=== PATIENT | female | born 1955 | race Caucasian/White ===

== ENCOUNTER → 2024-02-19 15:57 | Outpatient (REF) | payer MEDICARE, OTHER, SELFPAY | LOC: HWRAD 15:57 | PROVIDERS: ATTENDING PHYSICIAN Internal Medicine Critical Care Medicine; FAMILY PHYSICIAN Family Medicine | DX: Z87.891 Personal history of nicotine dependence (principal) | CPT/HCPCS: 71271 ==

== ENCOUNTER 2024-06-27 12:00 | Inpatient (IN) | payer MEDICARE, OTHER, SELFPAY ==
[2024-06-27] VITALS (13 sets, daily range): BP systolic 91–125; BP diastolic 50–93; BMI 42.2; BMI 41.3
--- NOTE | 2024-06-27 07:29 | ED.GENMED ---
History of Present Illness
General
Chief Complaint: Breathing Problem
Time Seen by Provider: 06/27/24 07:18
History of Present Illness
History of Present Illness:
69-year-old female with history of COPD on chronic oxygen, CHF, insulin-dependent diabetes, hypertension, hyperlipidemia, and former smoker presents to the emergency department for evaluation of fever and cough beginning Thursday. She states her last
Dupixent treatment was Thursday, states 'I always get sick whenever I get the shot'. Reports increased productive mucus as well as shortness of breath. Arrives on 6 L nasal cannula with continued increased work of breathing. Febrile on arrival as
well. Denies any known ill contacts. No recent travel.
Past History
Past History
ED Past Medical History: COPD, HTN, Hypercholesterolemia, IDDM and Other (Rheumatoid arthritis, osteoporosis, cataracts)
ED Past Surgical History: Cholecystectomy, Gynecological (Partial hysterectomy) and Urological (Bladder sling)
Social History
Tobacco: Former smoker
Alcohol: None
Drug: None
Personal:
Living: alone (Her son keeps an eye on her)
Review of Systems
Review of Systems
Allergies reviewed?: Yes
All Other Systems: ROS reviewed and negative except as documented in HPI and ROS
Phy Exam
Physical Exam
Physical Exam:
GEN: Ill-appearing, facial flushing noted, increased work of breathing
Eyes: PERRLA, EOMs intact, no scleral icterus
HENT: NCAT, oral mucosa moist, unable to assess for JVD secondary to body habitus
Lungs: Tachypneic with pursed lip breathing and widespread wheezes
Cardiac: tachycardic, regular, no murmur
Neuro: AO x 3
MSK: No gross deformity or ecchymosis. No edema. No digital clubbing
Skin: No rashes, petechiae. Normal color, no pallor or jaundice.
Psych: Calm, cooperative, proper hygiene
Scores
Heart Failure Risk
Heart Failure Risk Score: Not Applicable
Course
Orders/Labs/Results
Orders:
Orders
06/27/24 07:22
EKG [Electrocardiogram (*1)] Urgent
Reason for Study: Shortness of Breath
06/27/24 07:23
EKG- Treatment ONCE
06/27/24 07:24
Acetaminophen [Tylenol] 1,000 mg .ROUTE .STK-MED ONE
06/27/24 07:31
COVID-19 Antigen Urgent
Source: Nasal Swab
Complete Blood Count/With Diff Urgent
Glycohemoglobin (HgbA1c) Urgent
Influenza A+B Rapid Molecular Urgent
JAIME Source: Nasal Swab
Specimen Description:
Acetaminophen [Tylenol] 1,000 mg PO NOW STA
06/27/24 07:34
Ipratropium/Albuterol Sulfate [Duoneb] 3 ml INH R NOW ONE
CR Chest - 2 Views Urgent
Comment:
Reason For Exam: SOB
06/27/24 07:38
Lactic Acid Q4H
Comment: CANCEL 2nd LACTIC ACID IF 1st LACTIC ACID IS LESS THAN 2
Blood Culture Urgent
JAIME Source: Blood/Venous
Specimen Description:
06/27/24 07:45
Comprehensive Metabolic Panel Urgent
NT-proBNP Urgent
Blood Culture Routine
JAIME Source: Blood/Venous
Specimen Description:
Ketorolac [Toradol] 15 mg IV NOW STA
06/27/24 07:49
Morphine Sulfate 4 mg .ROUTE .STK-MED ONE
06/27/24 07:50
Morphine Sulfate 4 mg IV NOW STA
06/27/24 08:35
CefTRIAXone [Rocephin] 1,000 mg IV NOW STA
Doxycycline [Vibramycin] 100 mg PO NOW STA
MethylPREDNISolone PF [Solu-Medrol Pf] 60 mg IV NOW STA
06/27/24 11:34
Admit/Transfer Patient As Directed
Co-Sign Provider:
Level of Care: Inpatient admission
Assign to:: Telemetry
Physician / Group: Mirsky/Hospitalist
Diagnosis: AECOPD
Reason for Telemetry: Arrhythmia
Date to Stop Telemetry: 06/30/24
Time to Stop Telemetry: 11:00
Reason for Hospitalization: Respiratory Distress
AECOPD
Expected length of stay greater than two midnights?: Yes
ELOS- Estimated Length of Stay in days: 4
I certify the patient meets the requirements for IP care: Yes
PRN Pain Medication Management As Directed
May give lesser potent ordered pain med per pt: Yes
preference::
Protocol:: Medication orders for pain may be administered in a
manner that supports deferring to patient preference
when the pt is:
-Requesting an ordered lesser potent pain medication.
Least to most potent pain medications are defined as:
acetaminophen < NSAID < tramadol < opioids (morphine,
oxycodone, hydromorphone).
- Requesting a lesser dose of the same medication IF
ORDERED.
- Requesting a less intrusive route of administration
if both routes are prescribed by the provider (PO <
IV).
06/27/24 11:40
Code Status As Directed
Resuscitation Status: Full Code
06/27/24 12:05
Lactic Acid Q4H
Comment: CANCEL 2nd LACTIC ACID IF 1st LACTIC ACID IS LESS THAN 2
06/30/24 11:00
DC Protocol for Telemetry ONCE
Abnormal Lab Results
06/27/24 06/27/24 06/27/24
07:31 07:38 07:45
WBC 4.2 L 10^3/uL
(4.8-10.8)
Plt Count 41 L 10^3/uL
(130-400)
MPV 11.5 H fL
(7.4-10.4)
Abs Immat Gran (auto) 0.3 H 10^3/uL
(0-0.05)
Absolute Lymphs (auto) 0.4 L 10^3/uL
(1.2-3.4)
Immature Gran % 7.5 H %
(0-0.5)
Neutrophils % 81.0 H %
(42.2-75.2)
Lymphocytes % 8.9 L %
(20.5-51.1)
Monocytes % 1.4 L %
(1.7-9.3)
Sodium 132 L mmol/L
(135-145)
Chloride 93 L mmol/L
(98-107)
Glucose 210 H mg/dl
(70-99)
Lactic Acid 2.4 H mmol/L
(0.7-2.0)
Total Bilirubin 1.6 H mg/dl
(0.2-1.3)
AST 116 H U/L
(14-36)
ALT 38 H U/L
(0-35)
Total Protein 6.1 L g/dl
(6.3-8.2)
06/27/24 07:31
06/27/24 07:45
Vital Signs
Initial and Last Documented VS:
Initial Vital Signs
Temp Pulse Resp BP Pulse Ox
103.7 F H 122 22 117/91 96
06/27/24 07:26 06/27/24 07:26 06/27/24 07:26 06/27/24 07:26 06/27/24 07:26
Last Documented Vital Signs
Temp Pulse Resp BP Pulse Ox
99.2 F 81 19 100/72 94
06/27/24 10:04 06/27/24 12:00 06/27/24 11:00 06/27/24 12:02 06/27/24 12:02
MDM/Problems Addressed
MDM/Problems Addressed:
61-year-old female presents with acute respiratory distress and fever. She does have audible wheezing and rhonchi on lung exam however no discernible infiltrate on chest x-ray. Viral swabs are negative. She does have leukopenia which may suggest
a component of a viral syndrome. Nevertheless given her brittle COPD history will cover with broad-spectrum antibiotics and steroids and admit for treatment
Comment
Comment:
EKG independently interpreted by me shows a sinus tachycardia at a rate of [address] depressions and T wave inversions suspicious for subendocardial ischemia likely rate dependent, ST changes are new compared to prior EKG
*Critical Care Note
Total Time (30-74mins, 75-104mins- exclusive of procedures): Not Applicable
ED Attending Note
-
Portions of this chart may have been created with voice recognition software.� Occasional wrong word or��sound alike� substitutions may have occurred due to the inherent limitations of voice recognition software.
Discharge Plan
Departure
Patient Disposition: Admit
Date of Disposition: 06/27/24
Time of Disposition: 08:44
Admit to: Med/Surg
Presentation/result/management discussed w/ accepting MD/DO: Hospitalist
Discharge Problem:
Acute exacerbation of chronic obstructive pulmonary disease (COPD)
Interventions
Interventions:
*Risk Screen - Suicide Last Done: 06/27/24 07:26
*General Assessment Last Done: 06/27/24 07:26
*Neglect/Abuse Screening Last Done: 06/27/24 07:26
ED- Fall Risk Assessment Last Done: 06/27/24 07:55
*ED COVID-19 Vaccine History Last Done: 06/27/24 07:26
*Nursing Disposition Last Done: 06/27/24 12:43
ED- Cardiac Assessment Last Done: 06/27/24 07:55
ED- Pulmonary Assessment Last Done: 06/27/24 07:55
[2024-06-27] MEDS: TYLENOL 1000 MG PO (07:31)
[2024-06-27] MEDS: DUONEB 3 ML INH ×3 (07:40→19:41)
[2024-06-27] MEDS: MORPHINE SULFATE 4 MG IV (07:50)
[2024-06-27 07:57] LABS: COVID-19 Antigen Negative (Negative)
[2024-06-27 07:59] LABS: Lactic Acid 2.4 mmol/L (0.7-2.0)
[2024-06-27 08:10] LABS: Hematocrit 41.1 % (37.0-47.0); Hemoglobin 14.4 g/dL (12.0-16.0); Mean Corpuscular Hgb 29.2 pg (27.0-31.0); Mean Corpuscular Volume 83.4 fL (81.0-99.0); Red Blood Cell Count 4.93 10^6/uL (4.20-5.40); Red Cell Dist. Width 12.7 % (11.5-14.5); White Blood Cell Count 4.2 10^3/uL (4.8-10.8)
[2024-06-27 08:30] LABS: ALT (SGPT) 38 U/L (0-35); AST (SGOT) 116 U/L (14-36); Albumin 3.9 g/dl (3.5-5.0); Alkaline Phosphatase 81 U/L (38-126); Blood Urea Nitrogen 16 mg/dl (7-17); Carbon Dioxide 28 mmol/L (22-30); Chloride 93 mmol/L (98-107); Estimated Creatinine Clearance 76 ml/min; Glucose 210 mg/dl (70-99); Potassium 3.8 mmol/L (3.5-5.1); Sodium 132 mmol/L (135-145); Total Bilirubin 1.6 mg/dl (0.2-1.3); Total Protein 6.1 g/dl (6.3-8.2); eGFR > 60.00
[2024-06-27 08:36] LABS: NT-proBNP 306 pg/ml
[2024-06-27] MEDS: VIBRAMYCIN 100 MG PO ×2 (08:44→20:02)
[2024-06-27] MEDS: ROCEPHIN 1000 MG IV (08:44)
[2024-06-27] MEDS: SOLU-MEDROL PF 60 MG IV (08:44)
[2024-06-27 09:05] LABS: Mean Platelet Volume 11.5 fL (7.4-10.4); Platelet Count 41 10^3/uL (130-400)
[2024-06-27 09:06] LABS: % Eosinophils 0.2 % (0-6); % Immature Granulocytes 7.5 % (0-0.5); % Lymphocytes 8.9 % (20.5-51.1); % Monocytes 1.4 % (1.7-9.3); Absolute Immature Granulocytes 0.3 10^3/uL (0-0.05); Absolute Lymphocytes 0.4 10^3/uL (1.2-3.4); Absolute Monocytes 0.1 10^3/uL (0.1-0.6); Absolute Neutrophils 3.4 10^3/uL (1.4-6.5); Nucleated Red Blood Cells % 0 %
--- NOTE | 2024-06-27 12:31 | PN.DE.MGMTRT ---
Insulin Management
- -
06/27/2024: Diabetes management Consult
69 year old female w/PMH: COPD on chronic oxygen, CHF,HTN, HLD, former smoker and IDDM. Pt presented to the ED with fever and cough beginning Thursday. She states her last Dupixent treatment was Thursday, states 'I always get sick whenever I get the
shot'. Reports increased productive mucus as well as shortness of breath. Arrives on 6 L nasal cannula with continued increased work of breathing. Febrile on arrival as well.
Pt is on Chronic steroids- Prednisone 10mg daily, received a dose of IV steroids- Methylpred 60mg on arrival to ED. Cr 0.8, eGFR >60
Was taking Metformin 1000mg BID and NovoLog SS 2-11 units AC. Glucose on arrival was 210(V), pt will be further managed on IV Steroids- Dexa 4mg Q8hrs. Dr. Pinto has ordered Lantus 10 units @ HS and moderate corrective insulin with meals and 1800
marshall diet.
Will make no changes, anticipate steroids will contribute to further Hyperglycemia.
Will cont to follow and adjust insulin dose if necessary. Will Update A1C.
Diabetes History
- -
Type of Diabetes: 2
Pre-Admission Diabetes Regimen
06/27/24 06/27/24
07:30 07:45
Creatinine Cancelled 0.8
Insulin Pump Settings
IP Diabetes Regimen
06/27/24 06/27/24
07:30 07:45
Glucose Cancelled 210 H
Patient Education
[2024-06-27 12:40] LABS: Lactic Acid 1.7 mmol/L (0.7-2.0)
--- NOTE | 2024-06-27 13:09 | W.PN.HOSP.TC ---
Today's Communication/Plan
-
IV Decadron
Oxygen supplement
empiric abx
Assessment / Plan
Assessment / Plan
AECOPD
Pt with >7 yr hx of COPD, had been doing reasonably well until past 3-4 days when progressively began to worsen, resulting in marked sob earlier today.
+Productive of thick yellow phlegm
Acute infectious asthmatic bronchitis
Nodule noted left lower lung 5/10 measuring 4 mm
IDDM
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
Rheumatoid Arthritis
essential HTN
Morbid Obesity
affects all aspects
osteoporosis
cataracts
P:IV Decadron
empiric abx
sputum for C&S
Pulm consult
Full Code
see dictated note
Anticipated Discharge: > 48 hours
Subjective/Interval History
-
Date of Service: June 27, 2024
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
Objective Data
-
Labs:
Laboratory Results
06/27/24 06/27/24 06/27/24
07:30 07:31 07:45
WBC 4.2 L
Hgb 14.4
Hct 41.1
Plt Count 41 L
Sodium Cancelled 132 L
Potassium Cancelled 3.8
Chloride Cancelled 93 L
Carbon Dioxide Cancelled 28
BUN Cancelled 16
Creatinine Cancelled 0.8
Glucose Cancelled 210 H
Calcium Cancelled 9.0
Total Bilirubin Cancelled 1.6 H
AST Cancelled 116 H
ALT Cancelled 38 H
Alkaline Phosphatase Cancelled 81
Vital Signs:
Vital Signs
Temp Pulse Resp BP Pulse Ox
97.8 F 108 24 101/73 97
06/27/24 13:01 06/27/24 13:01 06/27/24 13:01 06/27/24 13:01 06/27/24 13:01
Review of Systems
-
History Source: Patient and Coordinated Provider
Constitutional: Reports Fever (103.7)
EENT: Reports No Symptoms Reported
Respiratory: Reports Cough, Trouble Breathing and Wheezing
Cardiac: Reports No Symptoms; Denies Chest Pain
Abdomen/GI: Reports No Symptoms
Genitourinary: Reports No Symptoms
Neuro: Reports No Symptoms
Physical Exam
-
General: Well Developed, Well Nourished, Respiratory Distress, Appears in Distress and Appears Chronically Ill
HEENT: Normocephalic, Atraumatic and Moist Mucous Membranes
Respiratory: Wheezes (high freq holoexpiratory wheeze)
Cardiac: Regular Rhythm and S1/S2
GI: Nontender and Nondistended
Musculoskeletal: No Clubbing, No Cyanosis and No Edema
Neuro: Awake, Alert and Oriented
[2024-06-27 13:14] LABS: Glucose - Point of Care 245 mg/dl (70-99)
[2024-06-27 13:22] LABS: Glycohemoglobin (HgbA1c) 5.9 % (4.0-5.6)
[2024-06-27] MEDS: NOVOLOG FLEXPEN-MODERATE RESISTANCE 3 UNITS SC (13:48)
[2024-06-27] MEDS: DURAGESIC 12 MCG/HR PATCH 1 PATCH TRANSDERM (14:28)
[2024-06-27] MEDS: ZITHROMAX 500 MG PO (14:28)
--- NOTE | 2024-06-27 14:43 | CON.PUL ---
Consultation
Consultation Request
Date/Time Consultation Requested: 06/27/2024
Date/Time Consultation Performed: 06/27/2024
Requesting Provider: Dr. Pinto
Performing Provider: Dr. Pawan Funk
Reason for Consultation: Acute exacerbation of COPD
Medical History
-
History of Present Illness:
69-year-old woman with history of stage IV COPD, on chronic oxygen therapy, type 2 diabetes, hypertension, heart failure, former smoker who came to the emergency room for evaluation on 06/27/2024 for evaluation of fever and cough since Thursday.
Usually follows up with Dr. Caraballo last time seen was 05/09/2024.
[facility] records reviewed, patient has baseline shortness of breath with minimal efforts.
Chronically on oxygen supplementation 4-6 L.
Chronically on nebulizer therapy.
Chest x-ray on admission showed no acute abnormalities in the emergency room.
10 mg of prednisone daily and low-dose azithromycin for anti-inflammatory therapy.
Patient has an asthmatic component and currently on Dupixent injections.
-
Quit smoking in November 2018.
Patient is due for a low-dose radiation CAT scan in February 2025.
Past Medical History
Past Medical History: Other (See assessment and plan section)
Social History
Tobacco: Former Smoker (24-lyqb-exeq history, quit in 2018)
Alcohol: None
Drug: None
Living: Alone
Family History
Family History: Reviewed & Not Pertinent
Allergies / Home Medications
Allergies
Allergy/AdvReac Type Severity Reaction Status Date / Time
Penicillins Allergy tongue Verified 09/13/22 09:11
swelling
as a child
Home Medications
�Medication �Instructions �Recorded �Confirmed �Last Taken �Type
propranolol 10 mg tablet 10 mg PO BID tremors 09/18/17 06/27/24 06/27/24 History
simvastatin 20 mg tablet 20 mg PO DAILY High cholesterol 09/18/17 06/27/24 06/27/24 History
metformin 1,000 mg tablet 1,000 mg PO BID@0800,1700 ##120 09/10/18 06/27/24 06/27/24 Rx
insulin aspart U-100 100 unit/mL 2 - 11 sliding scale dose SC ACHS 11/19/18 06/27/24 06/20/19 History
(3 mL) subcutaneous pen (Novolog Diabetes
FlexPen U-100 Insulin aspart)
albuterol sulfate 90 mcg/actuation 2 puff inhalation R Q4HPRN PRN SOB 06/21/19 06/27/24 04/23/22 History
aerosol inhaler
aspirin 81 mg tablet,delayed 81 mg PO DAILY Blood pressure 06/21/19 06/27/24 06/27/24 History
release
budesonide 0.5 mg/2 mL suspension 0.5 mg (2 mL) inhalation R BID #0 04/27/22 06/27/24 06/27/24 Rx
for nebulization mL
roflumilast 500 mcg tablet 500 mcg PO DAILY Anti-inflammatory 04/27/22 06/27/24 06/27/24 Rx
(Daliresp) #30 tabs
fentanyl 12 mcg/hr transdermal 1 patch topical Q72H Pain 09/08/22 06/27/24 06/27/24 History
patch
ipratropium 0.5 mg-albuterol 3 mg 3 ml inhalation R QID 09/08/22 06/27/24 06/27/24 History
(2.5 mg base)/3 mL nebulization Lung/breathing issues
soln
furosemide 20 mg tablet 20 mg PO DAILY Fluid 09/13/22 06/27/24 06/27/24 History
retention/Swelling
oxycodone-acetaminophen 5 mg-325 1 tab PO Q6HPRN PRN moderate pain 09/13/22 06/27/24 Unknown History
mg tablet
lisinopril 10 mg tablet 10 mg PO DAILY Blood pressure 09/14/22 06/27/24 06/27/24 History
azithromycin 250 mg tablet 500 mg PO MOWEFR 06/27/24 06/27/24 06/27/24 History
dupilumab 300 mg/2 mL subcutaneous 300 mg SC Q2W 06/27/24 06/27/24 06/24/24 History
syringe (Dupixent)
prednisone 10 mg tablet 10 mg PO DAILY 06/27/24 06/27/24 06/27/24 History
Review of Systems
-
History Source: Patient
All other systems: Negative unless noted
Vitals / Labs / Diagnostic Testing
Vital Signs
Temp Pulse Resp BP Pulse Ox
97.8 F 101 20 101/73 96
06/27/24 13:01 06/27/24 14:42 06/27/24 14:42 06/27/24 13:01 06/27/24 14:42
Lab Data
06/27/24 07:31
06/27/24 07:45
Microbiology
06/27/24 07:31 Nasal Swab Influenza Types A & B (ANGIE) - Final
Negative for Influenza A & B, NAAT
Negative results must be combined with clinical observations
and patient history.
Nucleic Acid Amplification test (NAAT)performed on the
[employer] NOW platform.
Diagnostic Testing:
Physical Exam
-
HEENT: Normocephalic
Cardiovascular: S1/S2
Respiratory: Wheeze
GI: Non Distended
Neurology: Awake, Alert and No Motor Deficits
Skin: Warm
General: Respiratory Distress (With activity)
Assessment
-
Acute exacerbation COPD/asthma overlap-likely tracheobronchitis.
Chest x-ray is clear.
Thrombocytopenia new compared to prior
Condition present prior admission
Known h/o stage IV COPD, on home O2 2LPM, albuterol HFA, azithromycin 500 mg MWF, budesonide, DNs, prednisone 10 mg qd, roflumilast. Previously on palliative care, which she discontinued herself
Stanislaw 01/2021- FEV1 0.75L 31%, FVC 1.53L 49%, ratio 54
AB.4/49/64-room air-08/2018
81-[id number] smoker- quit 2018
Borderline low level of IgG 10/21/2017-subclasses were normal
Emphysema on CT
4 mm lung nodule new compared to prior left lower lobe on CAT scan 02/19/2024
COPD exacerbations 08/2018, 11/22/18, 12/08/18, 12/30/2018, April 2022
Heart failure with with preserved ejection fraction
Echocardiogram 05/29/2023: Reviewed,. Poor visualization. Normal LVEF. No significant valvular abnormalities.
Hypertension
Hyperlipidemia
Type 2 diabetes
Cholecystectomy Aug 2018
Rheumatoid arthritis on chronic methotrexate
GERD
Family history of hepatitis C (Brother), prostate cancer (Brother), COPD (mother), lung cancer (father)
Chronic back pain, on disability. S/P vertebroplasty. Recurrent Compression fractures-T4, 5-noted on low-dose CT chest 07/2018
Obesity
Snoring: Recent sleep study without obstructive sleep apnea.
Deconditioning
Former smoker
Assessment and plan:
Acute COPD/asthma exacerbation. Tracheobronchitis/asthmatic bronchitis.
Chest x-ray with evidence for acute infection.
Productive of yellow thick phlegm.
-
At this point I agree with current management.
IV Decadron
Given severity of airflow obstruction agree with antibiotics. Ceftriaxone/doxycycline
Sputum culture if able
Nebulizer therapy which is her baseline management in the outpatient setting
While on antibiotics hold low-dose azithromycin.
Continue Roflumilast
Continue oxygen therapy to maintain pulse ox above 90%.
-
Secretion clearance intervention
Acapella device
Mucolytic's
Vest therapy will be used if patient had difficulty expectorating.
-
Patient reports significant GERD symptoms. May be triggering symptoms as well. Will add Protonix
-
Thrombocytopenia: Unclear chronicity. New based on hospital records. Defer to primary team.
-
Monitor blood sugars particularly on high-dose of steroids
-
DVT prophylaxis
-
Will follow
--- NOTE | 2024-06-27 14:59 | PTCARENOTE ---
At 1430, LUIZA Fleming and LUIZA Yuen removed pt's fentanyl patch from home on her left upper arm , and wasted it in the prince bin in the med room. Then Alpa placed her new fentanyl patch on her right upper arm.
[2024-06-27] MEDS: DUONEB INH (15:02)
[2024-06-27] MEDS: DECADRON 4 MG IV ×2 (15:17→23:17)
[2024-06-27] MEDS: PERCOCET 5/325 1 TABLET PO ×2 (15:54→21:53)
[2024-06-27] MEDS: PROTONIX 40 MG PO (15:54)
[2024-06-27 17:34] LABS: Glucose - Point of Care 265 mg/dl (70-99)
[2024-06-27] MEDS: GLUCOPHAGE 1000 MG PO (17:42)
[2024-06-27] MEDS: NOVOLOG FLEXPEN-MODERATE RESISTANCE 5 UNITS SC (17:42)
[2024-06-27] MEDS: PULMICORT 0.5 MG INH (19:41)
[2024-06-27] MEDS: IMODIUM 2 MG PO (20:02)
[2024-06-27] MEDS: MUCINEX 1200 MG PO (20:02)
[2024-06-27] MEDS: INDERAL 10 MG PO (20:02)
[2024-06-27 21:39] LABS: Glucose - Point of Care 214 mg/dl (70-99)
[2024-06-27] MEDS: LANTUS 0.1 UNITS SC (21:52)
[2024-06-28] VITALS (7 sets, daily range): BP systolic 114–142; BP diastolic 59–73; PULSE 95; O2SAT 99
[2024-06-28 04:08] LABS: Hemoglobin 13.2 g/dL (12.0-16.0); Mean Corp Hgb Conc. 34.7 g/dL (33.0-37.0); Mean Corpuscular Hgb 28.9 pg (27.0-31.0); Mean Corpuscular Volume 83.3 fL (81.0-99.0); Mean Platelet Volume 12.4 fL (7.4-10.4); Platelet Count 53 10^3/uL (130-400); Red Blood Cell Count 4.56 10^6/uL (4.20-5.40); Red Cell Dist. Width 12.9 % (11.5-14.5); White Blood Cell Count 4.6 10^3/uL (4.8-10.8)
[2024-06-28 04:21] LABS: Blood Urea Nitrogen 31 mg/dl (7-17); Calcium 8.7 mg/dl (8.4-10.2); Carbon Dioxide 27 mmol/L (22-30); Chloride 93 mmol/L (98-107); Estimated Creatinine Clearance 75 ml/min; Glucose 184 mg/dl (70-99); Magnesium 1.4 mg/dl (1.6-2.3); Potassium 3.9 mmol/L (3.5-5.1); Sodium 133 mmol/L (135-145); eGFR > 60.00
--- NOTE | 2024-06-28 04:29 | W.PN.UPDATE ---
Update Note
Progress Note Update
0220: RN reported a run of NSVT. Pt asymptomatic. LAbs ordered :cbc,bmp, mag
0430 K 3.9 but mag 1.4--> will replete. Pt also noted to have thrombocytopenia at 54 (was 50 yest) ?from infectious process as she has never been this low.
[2024-06-28] MEDS: MAGNESIUM SULFATE 50 IV (05:20)
[2024-06-28 05:59] LABS: % Basophils 0.2 % (0-2); % Immature Granulocytes 4.5 % (0-0.5); % Lymphocytes 20.9 % (20.5-51.1); % Neutrophils 71.4 % (42.2-75.2); Absolute Immature Granulocytes 0.2 10^3/uL (0-0.05); Absolute Monocytes 0.1 10^3/uL (0.1-0.6); Absolute Neutrophils 3.3 10^3/uL (1.4-6.5); Nucleated Red Blood Cells % 0 %
[2024-06-28] MEDS: PULMICORT 0.5 MG INH ×2 (06:08→19:37)
[2024-06-28] MEDS: DUONEB 3 ML INH ×4 (06:08→19:37)
[2024-06-28 08:29] LABS: Glucose - Point of Care 189 mg/dl (70-99)
[2024-06-28] MEDS: NOVOLOG FLEXPEN-MODERATE RESISTANCE 1 UNITS SC (09:39)
[2024-06-28] MEDS: STERILE WATER FOR INJECTION 10 ML IV (09:40)
[2024-06-28] MEDS: ROCEPHIN 1000 MG IV (09:40)
[2024-06-28] MEDS: MUCINEX 1200 MG PO ×2 (09:41→20:09)
[2024-06-28] MEDS: PROTONIX 40 MG PO (09:41)
[2024-06-28] MEDS: LIPITOR 10 MG PO (09:41)
[2024-06-28] MEDS: ASPIR LOW (ENTERIC COATED) 81 MG PO (09:41)
[2024-06-28] MEDS: INDERAL 10 MG PO ×2 (09:42→20:09)
[2024-06-28] MEDS: VIBRAMYCIN 100 MG PO ×2 (09:42→20:09)
[2024-06-28] MEDS: GLUCOPHAGE 1000 MG PO ×2 (09:42→18:21)
[2024-06-28] MEDS: DALIRESP 500 MCG PO (09:42)
[2024-06-28] MEDS: DECADRON 4 MG IV ×2 (09:42→18:21)
[2024-06-28] MEDS: ZESTRIL 10 MG PO (09:43)
[2024-06-28] MEDS: LASIX 20 MG PO (09:43)
[2024-06-28 12:22] LABS: Glucose - Point of Care 287 mg/dl (70-99)
--- NOTE | 2024-06-28 12:34 | W.PN.HOSP.TC ---
Today's Communication/Plan
-
continue current Tx, Mag supplement
Reviewed with Dr. Funk
follow labs
Assessment / Plan
Assessment / Plan
AECOPD
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
+Productive of thick yellow phlegm. Demonstrating improvement
Acute infectious asthmatic bronchitis
Nodule noted left lower lung 02/18 measuring 4 mm
IDDM
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
glu 189-287. Increase in glu due to Decadron, breathing has improved, but would be cautious with decrease in steroids and thus continue current insulin coverage
a1c 5.9%
Rheumatoid Arthritis
Thrombocytopenia
41-->53k
will follow
Hypomagnesemia
will order oral supplement
essential HTN
As per nursing, had run of NSVT 06/27- night, none since, possibly related to acute illness vs low Magnesium
Morbid Obesity
affects all aspects
osteoporosis
cataracts
P:IV Decadron
empiric abx
sputum for C&S
Pulm consult appreciated
multiple issues
Full Code
Anticipated Discharge: > 48 hours
Subjective/Interval History
-
Date of Service: June 28, 2024
Appears less sob, but pt states not back to baseline
Objective Data
-
Labs:
Laboratory Results
06/28/24 06/28/24
03:50 06:00
WBC 4.6 L Cancelled
Hgb 13.2 Cancelled
Hct 38.0 Cancelled
Plt Count 53 L D Cancelled
Sodium 133 L Cancelled
Potassium 3.9 Cancelled
Chloride 93 L Cancelled
Carbon Dioxide 27 Cancelled
BUN 31 H Cancelled
Creatinine 0.8 Cancelled
Glucose 184 H Cancelled
Calcium 8.7 Cancelled
Total Bilirubin Cancelled
AST Cancelled
ALT Cancelled
Alkaline Phosphatase Cancelled
Vital Signs:
Vital Signs
Temp Pulse Resp BP Pulse Ox
97.7 F 78 22 125/70 98
06/28/24 11:00 06/28/24 11:24 06/28/24 11:24 06/28/24 11:00 06/28/24 11:24
I&O
06/27/24 06/28/24 06/29/24
06:59 06:59 06:59
Intake Total 540 / 540
Balance 540 / 540
Review of Systems
-
History Source: Patient and Coordinated Provider
Constitutional: Reports Fever (103.7 9/16, 07:26, afebrile since)
EENT: Reports No Symptoms Reported
Respiratory: Reports Cough, Trouble Breathing and Wheezing
Cardiac: Reports No Symptoms; Denies Chest Pain
Abdomen/GI: Reports No Symptoms
Genitourinary: Reports No Symptoms
Neuro: Reports No Symptoms
Physical Exam
-
General: Well Developed, Well Nourished, Respiratory Distress, Appears in Distress, Appears Chronically Ill and Morbidly Obese
HEENT: Normocephalic, Atraumatic and Moist Mucous Membranes
Respiratory: Wheezes (high freq holoexpiratory wheeze better, moving air better)
Cardiac: Regular Rhythm and S1/S2
GI: Nontender and Nondistended
Musculoskeletal: No Clubbing, No Cyanosis and No Edema
Neuro: Awake, Alert and Oriented
[2024-06-28] MEDS: NOVOLOG FLEXPEN-MODERATE RESISTANCE 5 UNITS SC (12:44)
--- NOTE | 2024-06-28 13:33 | W.PN.PUL3 ---
Today's Communication / Plan
-
Continue IV corticosteroids- start taper tomorrow.
Monitor blood sugars
Continue antibiotics
Continue nebulizer
Secretion clearance interventions
Wean down FiO2 as able
Assessment
-
Acute exacerbation COPD/asthma overlap-likely tracheobronchitis.
Chest x-ray is clear.
Thrombocytopenia new compared to prior
Condition present prior admission
Known h/o stage IV COPD, on home O2 2LPM, albuterol HFA, azithromycin 500 mg MWF, budesonide, DNs, prednisone 10 mg qd, roflumilast. Previously on palliative care, which she discontinued herself
Stanislaw 01/2021- FEV1 0.75L 31%, FVC 1.53L 49%, ratio 54
AB.4/49/64-room air-08/2018
[id number] smoker- quit 2018
Borderline low level of IgG 10/21/2017-subclasses were normal
Emphysema on CT
4 mm lung nodule new compared to prior left lower lobe on CAT scan 02/19/2024
COPD exacerbations 08/2018, 11/22/18, 12/08/18, 12/30/2018, April 2022
Heart failure with with preserved ejection fraction
Echocardiogram 05/29/2023: Reviewed,. Poor visualization. Normal LVEF. No significant valvular abnormalities.
Hypertension
Hyperlipidemia
Type 2 diabetes
Cholecystectomy Aug 2018
Rheumatoid arthritis on chronic methotrexate
GERD
Family history of hepatitis C (Brother), prostate cancer (Brother), COPD (mother), lung cancer (father)
Chronic back pain, on disability. S/P vertebroplasty. Recurrent Compression fractures-T4, 5-noted on low-dose CT chest 07/2018
Obesity
Snoring: Recent sleep study without obstructive sleep apnea.
Deconditioning
Former smoker
Assessment and plan:
Acute COPD/asthma exacerbation. Tracheobronchitis/asthmatic bronchitis.
Chest x-ray with evidence for acute infection.
Productive of yellow thick phlegm.
-
Continue with current regimen.
IV Decadron-continue without change for additional 24 hours. Hopefully can start tapering tomorrow.
Continue antibiotics regimen: Ceftriaxone/doxycycline
Sputum culture if able-is still pending.
Nebulizer therapy which is her baseline management in the outpatient setting
While on antibiotics hold low-dose azithromycin.
Continue Roflumilast
Continue oxygen therapy to maintain pulse ox above 90%.
-
Secretion clearance intervention
Acapella device encouraged.
Mucolytic's
Vest therapy will be used if patient had difficulty expectorating.
-
Patient reports significant GERD symptoms. May be triggering symptoms as well. Continue Protonix
-
Thrombocytopenia: Unclear chronicity. New based on hospital records. Defer to primary team.
-
Monitor blood sugars particularly on high-dose of steroids
-
DVT prophylaxis
-
Will follow
Subjective Data
-
Date of Service:
Date of Service: June 28, 2024
Chief Complaint: Pulmonary Follow Up (Acute exacerbation of COPD)
Subjective:
Continues to report coughing and shortness of breath
Denies significant phlegm production or hemoptysis
Review of Systems
General: Fever (n)
Cardiopulmonary: Dyspnea, Dyspnea on Exertion, Cough and Wheezing
GI: Abdominal Pain (n) and Nausea (n)
Neuro: Headache (n)
Objective Data
Data Reviewed
Vital Signs / I&O / Oxygen:
Vital Signs
Temp Pulse Resp BP Pulse Ox
97.7 F 78 22 125/70 98
06/28/24 11:00 06/28/24 11:24 06/28/24 11:24 06/28/24 11:00 06/28/24 11:24
Intake and Output
06/27/24 06/28/24 06/29/24
06:59 06:59 06:59
Intake Total 540 / 540
Balance 540 / 540
SaO2 98
Nasal Cannula flow liters per 2
minute
Physical Exam
General: Comfortable
HEENT: Normocephalic
Cardiovascular: S1-S2
Respiratory: Wheeze (Bilateral expiratory)
GI: Soft and Distended (Obese)
Neurology: Awake and Alert
Labs/Micro/Reports
Lab Data
06/28/24 06:00
06/28/24 06:00
Microbiology
06/27/24 07:45 Blood/Venous Blood Culture - Preliminary
No Growth in 24 hours- Final report to follow
06/27/24 07:38 Blood/Venous Blood Culture - Preliminary
No Growth in 24 hours- Final report to follow
06/27/24 07:31 Nasal Swab Influenza Types A & B (ANGIE) - Final
Negative for Influenza A & B, NAAT
Negative results must be combined with clinical observations
and patient history.
Nucleic Acid Amplification test (NAAT)performed on the
[employer] platform.
[2024-06-28] MEDS: PERCOCET 5/325 1 TABLET PO ×2 (14:28→20:50)
[2024-06-28] MEDS: MAGNESIUM OXIDE 500 MG PO ×2 (14:28→20:09)
--- NOTE | 2024-06-28 14:47 | PN.CDI ---
CDI
- -
CDI:
Physician Documentation Request
Admit Date: 06/27/24 12:00
Dear Doctor Millie,
Please review the following and provide your response in the progress notes.
Clinical Indicators:
- 06/28 PN 'Rheumatoid Arthritis'
- per H&P home med Fentanyl
- 06/27 RN note 'removed pt's fentanyl patch from home...placed her new fentanyl patch'
If possible, please provide further specificity as outlined below:
Opioid dependence
Opioid Use with dependence
Other
Use of terms such as suspected, likely, concern for, or probable (associated with a specific diagnosis that is being evaluated, monitored, or treated as if it exists) are acceptable and can be coded in the inpatient setting, when documented at the
time of discharge.
Thank you,
Aneta Mckeon RN
CDI Specialist
Please use your independent medical judgment in providing your response.
--- NOTE | 2024-06-28 14:50 | PN.CDI ---
CDI
- -
CDI:
Physician Documentation Request
Admit Date: 06/27/24 12:00
Dear Doctor Millie,
Please review the following and provide your response in the progress notes.
Clinical Indicators:
- On admission: Tmax 103.7, HR 110-120s, RR 20s
- IV abx Azithromycin, Ceftriaxone, Doxycycline given
- 06/28 PN 'Acute infectious asthmatic bronchitis'
Please clarify which most accurately describes the patient:
SIRS due to a non-infectious source
Sepsis due to infectious asthmatic bronchitis
Other
Use of terms such as suspected, likely, concern for, or probable (associated with a specific diagnosis that is being evaluated, monitored, or treated as if it exists) are acceptable and can be coded in the inpatient setting, when documented at the
time of discharge.
Thank you,
Aneta Mckeon RN
CDI Specialist
Please use your independent medical judgment in providing your response.
--- NOTE | 2024-06-28 16:04 | CM ---
Patient seen earlier today. Patient stated that she lives alone but her son lives 5 min away and is available to stay with her as needed. Patient has a walker, wheelchair and rolator at home. Patient refusing SNF was at [facility] but will not
return. Patient is known to [facility] but does not currently have VN services. Patient has a home O2 innogen that goes up to 5 liters. Patient stated son does shopping and would come and stay with her if needed before considering SNF. CM will
continue to follow for discharge planning needs.
Plan; home with VN vs SNF
[2024-06-28 16:38] LABS: Glucose - Point of Care 149 mg/dl (70-99)
[2024-06-28] MEDS: NOVOLOG FLEXPEN-MODERATE RESISTANCE SC (18:15)
[2024-06-28] MEDS: LANTUS 0.1 UNITS SC (20:50)
[2024-06-28 20:51] LABS: Glucose - Point of Care 215 mg/dl (70-99)
[2024-06-28] MEDS: ProAIR HFA INHALER 2 PUFF INH (23:15)
[2024-06-29] VITALS (7 sets, daily range): BP systolic 110–160; BP diastolic 51–83; PULSE 104; O2SAT 96
[2024-06-29] MEDS: DECADRON 4 MG IV ×2 (00:32→09:06)
[2024-06-29] MEDS: ProAIR HFA INHALER 2 PUFF INH (03:26)
[2024-06-29 07:30] LABS: Glucose - Point of Care 153 mg/dl (70-99)
[2024-06-29] MEDS: PULMICORT 0.5 MG INH ×2 (07:42→19:17)
[2024-06-29] MEDS: DUONEB 3 ML INH ×4 (07:42→19:17)
[2024-06-29] MEDS: LASIX 20 MG PO (08:58)
[2024-06-29] MEDS: NOVOLOG FLEXPEN-MODERATE RESISTANCE 1 UNITS SC ×2 (08:58→12:45)
[2024-06-29 09:00] LABS: Hematocrit 36.7 % (37.0-47.0); Hemoglobin 12.7 g/dL (12.0-16.0); Mean Corp Hgb Conc. 34.6 g/dL (33.0-37.0); Mean Corpuscular Hgb 29.3 pg (27.0-31.0); Mean Corpuscular Volume 84.6 fL (81.0-99.0); Red Blood Cell Count 4.34 10^6/uL (4.20-5.40); Red Cell Dist. Width 12.9 % (11.5-14.5); White Blood Cell Count 6.7 10^3/uL (4.8-10.8)
[2024-06-29] MEDS: GLUCOPHAGE 1000 MG PO ×2 (09:00→18:03)
[2024-06-29] MEDS: LIPITOR 10 MG PO (09:00)
[2024-06-29] MEDS: PROTONIX 40 MG PO (09:02)
[2024-06-29] MEDS: MAGNESIUM OXIDE 500 MG PO ×2 (09:02→20:13)
[2024-06-29] MEDS: DALIRESP 500 MCG PO (09:03)
[2024-06-29] MEDS: PERCOCET 5/325 1 TABLET PO ×2 (09:03→19:30)
[2024-06-29] MEDS: ASPIR LOW (ENTERIC COATED) 81 MG PO (09:03)
[2024-06-29] MEDS: ZESTRIL 10 MG PO (09:04)
[2024-06-29] MEDS: MUCINEX 1200 MG PO ×2 (09:05→20:13)
[2024-06-29] MEDS: STERILE WATER FOR INJECTION 10 ML IV (09:05)
[2024-06-29] MEDS: ROCEPHIN 1000 MG IV (09:06)
[2024-06-29] MEDS: VIBRAMYCIN 100 MG PO ×2 (09:07→20:13)
[2024-06-29] MEDS: INDERAL 10 MG PO ×2 (09:11→20:13)
[2024-06-29 09:50] LABS: % Basophils 0.3 % (0-2); % Immature Granulocytes 0.9 % (0-0.5); % Lymphocytes 30.2 % (20.5-51.1); % Monocytes 5.9 % (1.7-9.3); % Neutrophils 62.7 % (42.2-75.2); Absolute Immature Granulocytes 0.1 10^3/uL (0-0.05); Absolute Monocytes 0.4 10^3/uL (0.1-0.6); Absolute Neutrophils 4.2 10^3/uL (1.4-6.5); Nucleated Red Blood Cells % 0 %
[2024-06-29 09:53] LABS: Mean Platelet Volume 12.8 fL (7.4-10.4); Platelet Count 32 10^3/uL (130-400)
[2024-06-29 10:29] LABS: ALT (SGPT) 55 U/L (0-35); AST (SGOT) 64 U/L (14-36); Albumin 3.8 g/dl (3.5-5.0); Alkaline Phosphatase 77 U/L (38-126); Blood Urea Nitrogen 31 mg/dl (7-17); Calcium 9.1 mg/dl (8.4-10.2); Carbon Dioxide 31 mmol/L (22-30); Chloride 93 mmol/L (98-107); Estimated Creatinine Clearance 75 ml/min; Glucose 164 mg/dl (70-99); Magnesium 2.1 mg/dl (1.6-2.3); Sodium 137 mmol/L (135-145); Total Bilirubin 0.7 mg/dl (0.2-1.3); Total Protein 6.1 g/dl (6.3-8.2); eGFR > 60.00
[2024-06-29 11:43] LABS: Glucose - Point of Care 193 mg/dl (70-99)
--- NOTE | 2024-06-29 12:00 | W.PN.PUL3 ---
Today's Communication / Plan
-
Decrease IV steroids
Continue nebulizer therapy
Secretion clearance intervention
Continue antibiotics
Follow sputum culture
Continue oxygen supplementation
Will follow
Assessment
-
Acute exacerbation COPD/asthma overlap-likely tracheobronchitis.
Chest x-ray is clear.
Thrombocytopenia new compared to prior
Condition present prior admission
Known h/o stage IV COPD, on home O2 2LPM, albuterol HFA, azithromycin 500 mg MWF, budesonide, DNs, prednisone 10 mg qd, roflumilast. Previously on palliative care, which she discontinued herself
Stanislaw 01/2021- FEV1 0.75L 31%, FVC 1.53L 49%, ratio 54
AB.4/49/64-room air-08/2018
[id number] smoker- quit 2018
Borderline low level of IgG 10/21/2017-subclasses were normal
Emphysema on CT
4 mm lung nodule new compared to prior left lower lobe on CAT scan 02/19/2024
COPD exacerbations 08/2018, 11/22/18, 12/08/18, 12/30/2018, April 2022
Heart failure with with preserved ejection fraction
Echocardiogram 05/29/2023: Reviewed,. Poor visualization. Normal LVEF. No significant valvular abnormalities.
Hypertension
Hyperlipidemia
Type 2 diabetes
Cholecystectomy Aug 2018
Rheumatoid arthritis on chronic methotrexate
GERD
Family history of hepatitis C (Brother), prostate cancer (Brother), COPD (mother), lung cancer (father)
Chronic back pain, on disability. S/P vertebroplasty. Recurrent Compression fractures-T4, 5-noted on low-dose CT chest 07/2018
Obesity
Snoring: Recent sleep study without obstructive sleep apnea.
Deconditioning
Former smoker
Assessment and plan:
Acute COPD/asthma exacerbation. Tracheobronchitis/asthmatic bronchitis.
Chest x-ray with evidence for acute infection.
Productive of yellow thick phlegm.
Today 06/29/2024: Expiratory wheezing bilaterally-better air movement.
-
Continue with current regimen.
Decreased IV Decadron-2 mg IV every 8. Slow taper thereafter.
Continue antibiotics regimen: Ceftriaxone/doxycycline-if all cultures negative complete total 5 days of antibiotics for bronchitis.
Sputum culture if able-is still pending.
Nebulizer therapy which is her baseline management in the outpatient setting
While on antibiotics hold low-dose azithromycin.
Continue Roflumilast
In the outpatient on Dupixent.
Continue oxygen therapy to maintain pulse ox above 90%. Remains on low rate supplemental oxygen.
-
Secretion clearance intervention
Acapella device encouraged.
Mucolytic's
Vest therapy will be used if patient had difficulty expectorating.
-
Patient reports significant GERD symptoms. May be triggering symptoms as well. Continue Protonix
-
Thrombocytopenia: Unclear chronicity. New based on hospital records. Defer to primary team.
-
Monitor blood sugars particularly on high-dose of steroids
-
DVT prophylaxis
-
Will follow
Subjective Data
-
Date of Service:
Date of Service: June 29, 2024
Chief Complaint: Pulmonary Follow Up (Acute exacerbation of COPD)
Subjective:
Feels better. Still coughing
Exertional shortness of breath improved but not back to baseline
Producing phlegm without hemoptysis
Denies any chest pain
Currently sitting out of bed.
Review of Systems
Cardiopulmonary: Dyspnea, Dyspnea on Exertion, Cough and Wheezing
GI: Abdominal Pain (n) and Nausea (n)
Objective Data
Data Reviewed
Vital Signs / I&O / Oxygen:
Vital Signs
Temp Pulse Resp BP Pulse Ox
97.6 F 79 16 143/83 98
06/29/24 11:06 06/29/24 11:31 06/29/24 11:31 06/29/24 11:06 06/29/24 11:31
Intake and Output
06/28/24 06/29/24 06/30/24
06:59 06:59 06:59
Intake Total 540 / 540 1800 / 1800
Balance 540 / 540 1800 / 1800
SaO2 98
Nasal Cannula flow liters per 2
minute
Physical Exam
General: Comfortable
HEENT: Normocephalic
Cardiovascular: S1-S2
Respiratory: Wheeze (Bilateral expiratory-better air movement today)
GI: Soft and Distended (Obese)
Neurology: Awake and Alert
Labs/Micro/Reports
Lab Data
06/29/24 08:18
06/29/24 08:18
Microbiology
06/27/24 07:45 Blood/Venous Blood Culture - Preliminary
No Growth in 48 hours- Final report to follow
06/27/24 07:38 Blood/Venous Blood Culture - Preliminary
No Growth in 48 hours- Final report to follow
06/28/24 12:37 Sputum Respiratory Culture - Final
06/28/24 12:37 Sputum Gram Stain - Final
06/27/24 07:31 Nasal Swab Influenza Types A & B (ANGIE) - Final
Negative for Influenza A & B, NAAT
Negative results must be combined with clinical observations
and patient history.
Nucleic Acid Amplification test (NAAT)performed on the
[employer] platform.
--- NOTE | 2024-06-29 16:25 | W.PN.HOSP.TC ---
Today's Communication/Plan
-
begin cautious wean off steroids
follow glu
Assessment / Plan
Assessment / Plan
AECOPD
Pt with >7 yr hx of COPD, had been doing reasonably well until past 3-4 days [employer] when progressively began to worsen, resulting in marked sob earlier on day of admission.
+Productive of thick yellow phlegm. Demonstrating improvement
Acute infectious asthmatic bronchitis
Decadron has been decreased to 2 mg IV q8h
Nodule noted left lower lung 5/10 measuring 4 mm
IDDM
onset ~3yrs [employer], associated with use of Prednisone
glu 189-287. Increase in glu due to Decadron, breathing has improved, continue current insulin coverage
a1c 5.9%
Rheumatoid Arthritis
On admission: Tmax 103.7, HR 110-120s, RR 20s
- IV abx Azithromycin, Ceftriaxone, Doxycycline given
- 06/28 PN 'Acute infectious asthmatic bronchitis'
Sepsis due to infectious asthmatic bronchitis
Thrombocytopenia
41-->53-->32k
will follow, Heme consult
chronic pain and thus
Opioid Use with dependence
Hypomagnesemia
resolved, 1.4-->2.1
essential HTN
As per nursing, had run of NSVT 06/27- night, none since, possibly related to acute illness vs low Magnesium. Currently appears resolved
Morbid Obesity
affects all aspects
osteoporosis
cataracts
P:IV Decadron dose decreased
empiric abx
sputum for C&S
Pulm consult appreciated
multiple issues
Full Code
Anticipated Discharge: > 48 hours
Subjective/Interval History
-
Date of Service: June 29, 2024
Looks better, but pt states does not feel better
Objective Data
-
Labs:
Laboratory Results
06/29/24
08:18
WBC 6.7
Hgb 12.7
Hct 36.7 L
Plt Count 32 L D
Sodium 137
Potassium 4.0
Chloride 93 L
Carbon Dioxide 31 H
BUN 31 H
Creatinine 0.8
Glucose 164 H
Calcium 9.1
Total Bilirubin 0.7
AST 64 H
ALT 55 H
Alkaline Phosphatase 77
Vital Signs:
Vital Signs
Temp Pulse Resp BP Pulse Ox
97.8 F 80 16 123/81 100
06/29/24 14:54 06/29/24 15:14 06/29/24 15:14 06/29/24 14:54 06/29/24 15:14
I&O
06/28/24 06/29/24 06/30/24
06:59 06:59 06:59
Intake Total 540 / 540 1800 / 1800
Balance 540 / 540 1800 / 1800
Review of Systems
-
History Source: Patient and Coordinated Provider
Constitutional: Reports Fever (103.7 06/27, 07:26, afebrile since)
EENT: Reports No Symptoms Reported
Respiratory: Reports Cough, Trouble Breathing and Wheezing
Cardiac: Reports No Symptoms; Denies Chest Pain
Abdomen/GI: Reports No Symptoms
Genitourinary: Reports No Symptoms
Neuro: Reports No Symptoms
Physical Exam
-
General: Well Developed, Well Nourished, Respiratory Distress (better), Appears Chronically Ill and Morbidly Obese
HEENT: Normocephalic, Atraumatic and Moist Mucous Membranes
Respiratory: Wheezes ( wheeze has decreased, not as high freq, moving air better)
Cardiac: Regular Rhythm and S1/S2
GI: Nontender and Nondistended
Musculoskeletal: No Clubbing, No Cyanosis and No Edema
Neuro: Awake, Alert and Oriented
[2024-06-29 17:37] LABS: Glucose - Point of Care 142 mg/dl (70-99)
[2024-06-29] MEDS: NOVOLOG FLEXPEN-MODERATE RESISTANCE SC (18:03)
[2024-06-29] MEDS: DECADRON 2 MG IV ×2 (18:03→23:35)
[2024-06-29 21:05] LABS: Glucose - Point of Care 212 mg/dl (70-99)
[2024-06-29] MEDS: LANTUS 0.1 UNITS SC (22:03)
[2024-06-30] VITALS (7 sets, daily range): BP systolic 105–143; BP diastolic 47–69; PULSE 100; O2SAT 96; BMI 41.3
[2024-06-30] MEDS: PERCOCET 5/325 1 TABLET PO ×3 (03:17→16:52)
[2024-06-30] MEDS: ProAIR HFA INHALER 2 PUFF INH (05:19)
[2024-06-30 07:36] LABS: Glucose - Point of Care 176 mg/dl (70-99)
[2024-06-30] MEDS: PULMICORT 0.5 MG INH ×2 (08:02→19:59)
[2024-06-30] MEDS: DUONEB 3 ML INH ×4 (08:02→19:59)
[2024-06-30 08:32] LABS: Hematocrit 33.5 % (37.0-47.0); Hemoglobin 11.6 g/dL (12.0-16.0); Mean Corp Hgb Conc. 34.6 g/dL (33.0-37.0); Mean Corpuscular Hgb 30.1 pg (27.0-31.0); Mean Platelet Volume 12.4 fL (7.4-10.4); Platelet Count 41 10^3/uL (130-400); Red Blood Cell Count 3.85 10^6/uL (4.20-5.40); Red Cell Dist. Width 12.9 % (11.5-14.5)
[2024-06-30] MEDS: NOVOLOG FLEXPEN-MODERATE RESISTANCE 1 UNITS SC ×2 (08:43→17:19)
[2024-06-30] MEDS: VIBRAMYCIN 100 MG PO ×2 (08:44→20:24)
[2024-06-30] MEDS: ASPIR LOW (ENTERIC COATED) 81 MG PO (08:44)
[2024-06-30] MEDS: LIPITOR 10 MG PO (08:44)
[2024-06-30] MEDS: GLUCOPHAGE 1000 MG PO ×2 (08:44→16:48)
[2024-06-30] MEDS: DECADRON 2 MG IV ×2 (08:44→15:41)
[2024-06-30] MEDS: STERILE WATER FOR INJECTION 10 ML IV (08:45)
[2024-06-30] MEDS: ROCEPHIN 1000 MG IV (08:45)
[2024-06-30 08:47] LABS: Blood Urea Nitrogen 27 mg/dl (7-17); Calcium 9.1 mg/dl (8.4-10.2); Carbon Dioxide 35 mmol/L (22-30); Chloride 94 mmol/L (98-107); Estimated Creatinine Clearance 75 ml/min; Glucose 137 mg/dl (70-99); Potassium 4.4 mmol/L (3.5-5.1); Sodium 136 mmol/L (135-145); eGFR > 60.00
[2024-06-30] MEDS: DALIRESP 500 MCG PO (08:47)
[2024-06-30] MEDS: MAGNESIUM OXIDE 500 MG PO ×2 (08:47→20:24)
[2024-06-30] MEDS: MUCINEX 1200 MG PO ×2 (08:47→20:24)
[2024-06-30] MEDS: LASIX 20 MG PO (08:48)
[2024-06-30] MEDS: ZESTRIL 10 MG PO (08:48)
[2024-06-30] MEDS: PROTONIX 40 MG PO (08:48)
[2024-06-30] MEDS: INDERAL 10 MG PO ×2 (08:48→20:24)
[2024-06-30 09:16] LABS: Atypical Lymphocytes 2 %; Band Neutrophils 2 % (0-3); Lymphocytes 43 % (20-51); Monocytes 5 % (2-9); Platelets Checked Yes; Segmented Neutrophils 48 % (42-75)
[2024-06-30 09:17] LABS: Anisocytosis 1+; Hypochromasia 1+; Normal RBC Morphology No; Total Cells Counted 100
--- NOTE | 2024-06-30 09:40 | W.PN.PUL3 ---
Today's Communication / Plan
-
Start prednisone taper tomorrow
Continue nebulizer therapy
Secretion clearance intervention
Continue antibiotics
Follow sputum culture
Continue oxygen supplementation and check ambulatory pulse oximetry prior to discharge
Will follow; will arrange for outpatient follow up with Dr. Caraballo
Assessment
-
Impression:
Acute exacerbation COPD/asthma overlap-likely tracheobronchitis.
Chest x-ray is clear.
Thrombocytopenia new compared to prior
Condition present prior admission
Known h/o stage IV COPD, on home O2 2LPM, albuterol HFA, azithromycin 500 mg MWF, budesonide, DNs, prednisone 10 mg qd, roflumilast. Previously on palliative care, which she discontinued herself
Stanislaw 01/2021- FEV1 0.75L 31%, FVC 1.53L 49%, ratio 54
AB.4/49/64-room air-08/2018
[id number] smoker- quit 2018
Borderline low level of IgG 10/21/2017-subclasses were normal
Emphysema on CT
4 mm lung nodule new compared to prior left lower lobe on CAT scan 02/19/2024
COPD exacerbations 08/2018, 11/22/18, 12/08/18, 12/30/2018, April 2022
Heart failure with with preserved ejection fraction
Echocardiogram 05/29/2023: Reviewed,. Poor visualization. Normal LVEF. No significant valvular abnormalities.
Hypertension
Hyperlipidemia
Type 2 diabetes
Cholecystectomy Aug 2018
Rheumatoid arthritis on chronic methotrexate
GERD
Family history of hepatitis C (Brother), prostate cancer (Brother), COPD (mother), lung cancer (father)
Chronic back pain, on disability. S/P vertebroplasty. Recurrent Compression fractures-T4, 5-noted on low-dose CT chest 07/2018
Obesity
Snoring: Recent sleep study without obstructive sleep apnea.
Deconditioning
Former smoker
Assessment and plan:
Acute COPD/asthma exacerbation. Tracheobronchitis/asthmatic bronchitis.
Chest x-ray without evidence for acute infection.
Productive of yellow thick phlegm.
Today 06/29/2024: Expiratory wheezing bilaterally-better air movement.
-
Continue with current regimen.
Now on IV Decadron-2 mg IV every 8. Slow taper thereafter with prednisone (starting tomorrow - 07/01)
Continue antibiotics regimen: Ceftriaxone/doxycycline-if all cultures negative complete total 5-7 days of antibiotics for bronchitis.
Sputum culture pending (NGTD)
Nebulizer therapy which is her baseline management in the outpatient setting - currently on budesonide + DuoNebs q4hr --> change to QID
While on antibiotics hold low-dose azithromycin.
Continue Roflumilast
In the outpatient on Dupixent.
Continue oxygen therapy to maintain pulse ox 88-95%. Remains on low rate supplemental oxygen.
-Check ambulatory pulse oximetry prior to discharge
Recommend repeating CT chest in 3 to 6 months to follow-up stability of left lower lobe 4 mm nodule
-
Secretion clearance intervention
Acapella device encouraged.
Mucolytics
Vest therapy will be used if patient had difficulty expectorating.
-
Patient reports significant GERD symptoms. May be triggering symptoms as well. Continue Protonix
-
Thrombocytopenia: Unclear chronicity. New based on hospital records. Defer to primary team. Transfuse if needed to keep >20k (>50k if she starts to bleed)
-
Monitor blood sugars particularly on high-dose of steroids
Goal >100 and <180mg/dL
-
DVT prophylaxis
-
Will follow
Total time spent today was 50 minutes for this encounter. Time includes reviewing laboratory test/imaging results, reviewing pertinent medical records, obtaining and reviewing medical history, performing an appropriate exam, ordering medications,
tests and procedures. Time also includes documentation of this encounter, coordinating patient care and communicating with other healthcare professionals. Total time does not include separately billed tests performed on this date of service.
Subjective Data
-
Date of Service:
Date of Service: June 30, 2024
Chief Complaint: Pulmonary Follow Up (Acute exacerbation of COPD)
Subjective:
Patient seen and evaluated today at bedside. She feels better with improved shortness of breath. She is currently on 2 L/min nasal cannula saturating 96%. Still coughing up yellow phlegm. Regarding her outpatient medications, she says that the
Dupixmike is making her short of breath and there is concern that she may be having an adverse reaction to this. She currently denies chest pain, RAMIREZ, abdominal pain, fevers or chills.
Review of Systems
General: Other (Negative unless mentioned above)
Objective Data
Data Reviewed
Vital Signs / I&O / Oxygen:
Vital Signs
Temp Pulse Resp BP Pulse Ox
97.8 F 93 18 105/47 97
06/30/24 07:00 06/30/24 08:04 06/30/24 08:04 06/30/24 07:00 06/30/24 08:04
Intake and Output
06/29/24 06/30/24 07/01/24
06:59 06:59 06:59
Intake Total 1800 / 1800 840 / 840
Output Total 600 / 600
Balance 1800 / 1800 240 / 240
SaO2 97
Nasal Cannula flow liters per 2
minute
Physical Exam
General: Respiratory Distress (negative) and Comfortable
HEENT: Normocephalic
Cardiovascular: S1-S2 and Peripheral Edema (negative)
Respiratory: Wheeze (Bilateral expiratory), Crackles (negative), Rhonchi (negative) and Non-Labored Respirations
GI: Soft, Distended (Obese), Non Tender and Normal Bowel Sounds
Neurology: Awake, Alert and Tremors (negative)
Skin: Warm, Dry and Jaundice (negative)
Labs/Micro/Reports
Lab Data
06/30/24 07:25
06/30/24 07:25
Microbiology
06/27/24 07:45 Blood/Venous Blood Culture - Preliminary
No Growth in 72 hours- Final report to follow
06/27/24 07:38 Blood/Venous Blood Culture - Preliminary
No Growth in 72 hours- Final report to follow
06/28/24 12:37 Sputum Respiratory Culture - Final
06/28/24 12:37 Sputum Gram Stain - Final
06/27/24 07:31 Nasal Swab Influenza Types A & B (ANGIE) - Final
Negative for Influenza A & B, NAAT
Negative results must be combined with clinical observations
and patient history.
Nucleic Acid Amplification test (NAAT)performed on the
[employer] platform.
--- NOTE | 2024-06-30 09:40 | CON.ONC ---
Impression
Impression
69-year-old female with past medical history of COPD presenting with acute COPD exacerbation, now with thrombocytopenia and leukocytosis.
Plan
Plan
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 Direct Platelet Associated Antibody ordered.
Continue to monitor CBC for further drop in plt values.
Continue medical management per primary team
Patient History
History of Present Illness
Patient is a 69-year-old female with past medical history of diabetes, hypertension, hyperlipidemia, RA, COPD presenting to [facility] with COPD exacerbation. At time of admission platelet count was 41, previously 2021. Today on 06/30,
platelet count is 41 from 32 yesterday, she has leukocytosis (12 from 4.2 at time of admission), and anemia she reports no history of bleeding disorders for herself or family. She has never been told in the past that she has low platelet counts.
She is currently on steroids, ceftriaxone and doxycycline for COPD exacerbation which can contribute to ITP, however she presented with low platelet counts prior to initiation of any new medication in patient. She started Dupixent a few weeks ago
and has been having serum sickness like reactions.
Overall today she reports no N/V, constipation, chest pain, abdominal pain or headaches. She has diarrhea, cough and diffuse bruising on UE.
Past-Medical/Surgical History
SURGICAL HISTORY: Cholecystectomy, partial hysterectomy and bladder sling placement.
PAST MEDICAL HISTORY:
COPD.
Essential hypertension.
Hyperlipidemia.
Insulin-dependent diabetes mellitus
Rheumatoid arthritis.
Osteoporosis.
Cataract history.
Patient Medication
�Medication �Instructions �Recorded �Confirmed �Last Taken �Type
propranolol 10 mg tablet 10 mg PO BID tremors 09/18/17 06/27/24 06/27/24 History
simvastatin 20 mg tablet 20 mg PO DAILY High cholesterol 09/18/17 06/27/24 06/27/24 History
metformin 1,000 mg tablet 1,000 mg PO BID@0800,1700 ##120 09/10/18 06/27/24 06/27/24 Rx
insulin aspart U-100 100 unit/mL 2 - 11 sliding scale dose SC ACHS 11/19/18 06/27/24 06/20/19 History
(3 mL) subcutaneous pen (Novolog Diabetes
FlexPen U-100 Insulin aspart)
albuterol sulfate 90 mcg/actuation 2 puff inhalation R Q4HPRN PRN SOB 06/21/19 06/27/24 04/23/22 History
aerosol inhaler
aspirin 81 mg tablet,delayed 81 mg PO DAILY Blood pressure 06/21/19 06/27/24 06/27/24 History
release
budesonide 0.5 mg/2 mL suspension 0.5 mg (2 mL) inhalation R BID #0 04/27/22 06/27/24 06/27/24 Rx
for nebulization mL
roflumilast 500 mcg tablet 500 mcg PO DAILY Anti-inflammatory 04/27/22 06/27/24 06/27/24 Rx
(Daliresp) #30 tabs
fentanyl 12 mcg/hr transdermal 1 patch topical Q72H Pain 09/08/22 06/27/24 06/27/24 History
patch
ipratropium 0.5 mg-albuterol 3 mg 3 ml inhalation R QID 09/08/22 06/27/24 06/27/24 History
(2.5 mg base)/3 mL nebulization Lung/breathing issues
soln
furosemide 20 mg tablet 20 mg PO DAILY Fluid 09/13/22 06/27/24 06/27/24 History
retention/Swelling
oxycodone-acetaminophen 5 mg-325 1 tab PO Q6HPRN PRN moderate pain 09/13/22 06/27/24 Unknown History
mg tablet
lisinopril 10 mg tablet 10 mg PO DAILY Blood pressure 09/14/22 06/27/24 06/27/24 History
azithromycin 250 mg tablet 500 mg PO MOWEFR Infection 06/27/24 06/27/24 06/27/24 History
dupilumab 300 mg/2 mL subcutaneous 300 mg SC Q2W Autoimmune Disorder 06/27/24 06/27/24 06/24/24 History
syringe (Dupixent)
prednisone 10 mg tablet 10 mg PO DAILY Anti-Inflammatory 06/27/24 06/27/24 06/27/24 History
Active Medications
Generic Name Dose Route Start Last Admin
Trade Name Freq PRN Reason Stop Dose Admin
Albuterol/Ipratropium 3 ml 06/30/24 08:00 06/30/24 08:02
Ipratropium 0.5/Albuterol 3 Mg (3 Ml Ampul) INH 3 ml
R Q4 IRINEO Administration
Protocol
Aspirin 81 mg 06/28/24 08:00 06/30/24 08:44
Aspirin 81 Mg (Enteric Coated) Tablet PO 07/26/24 07:59 81 mg
DAILY IRINEO Administration
Atorvastatin Calcium 10 mg 06/28/24 08:00 06/30/24 08:44
Atorvastatin (Lipitor) 10 Mg Tablet PO 07/26/24 07:59 10 mg
DAILY IRINEO Administration
Bisacodyl 10 mg 06/27/24 12:46
Bisacodyl 10 Mg Rectal Suppository RECTAL 07/25/24 12:45
[id number] PRN
constipation
Budesonide 0.5 mg 06/27/24 20:00 06/30/24 08:02
Budesonide (Pulmicort Respules) 0.5 Mg/2 Ml INH 0.5 mg
R BID IRINEO Administration
Protocol
Ceftriaxone Sodium 1,000 mg 06/28/24 08:00 06/30/24 08:45
Ceftriaxone 1000 Mg / 10 Ml Vial IV 1,000 mg
Q24H IRINEO Administration
Dexamethasone Sodium Phosphate 2 mg 06/29/24 16:00 06/30/24 08:44
Dexamethasone 4 Mg/Ml 1 Ml Vial IV 07/25/24 15:59 2 mg
Q8 IRINEO Administration
Doxycycline Hyclate 100 mg 06/27/24 20:00 06/30/24 08:44
Doxycycline 100 Mg Capsule PO 100 mg
Q12 IRINEO Administration
Fentanyl 1 patch 06/27/24 14:00 06/27/24 14:28
Fentanyl 12 Mcg/Hr Patch TRANSDERM 07/11/24 13:59 1 patch
Q72H IRINEO Administration
Furosemide 20 mg 06/28/24 08:00 06/30/24 08:48
Furosemide 20 Mg Tablet PO 07/26/24 07:59 20 mg
DAILY IRINEO Administration
Guaifenesin 1,200 mg 06/27/24 20:00 06/30/24 08:47
Guaifenesin 600 Mg Extended Release Tablet PO 07/25/24 19:59 1,200 mg
Q12 IRINEO Administration
Insulin Glargine 10 units/ 0.1 mls @ 0 mls/hr 06/27/24 22:00 06/29/24 22:03
Device SC 07/25/24 21:59 0.1 mls
HS IRINEO Administration
As Directed
Insulin Aspart 0 units 06/27/24 14:00 06/30/24 08:43
Insulin Aspart Moderate Resistance 300 Units/3 Ml Pen.Injctr SC 07/25/24 13:59 1 units
AC IRINEO Administration
Protocol
Lisinopril 10 mg 06/28/24 08:00 06/30/24 08:48
Lisinopril 10 Mg Tablet PO 07/26/24 07:59 10 mg
DAILY IRINEO Administration
Magnesium Oxide 500 mg 06/28/24 13:00 06/30/24 08:47
Magnesium Oxide 500 Mg Tablet PO 07/26/24 12:59 500 mg
BID IRINEO Administration
Metformin HCl 1,000 mg 06/27/24 17:00 06/30/24 08:44
Metformin 1000 Mg Regular Release Tablet PO 07/25/24 16:59 1,000 mg
BID@0800,1700 IRINEO Administration
Oxycodone/Acetaminophen 1 tablet 06/27/24 12:46 06/30/24 03:17
Oxycodone 5 Mg/Apap 325 Mg (Percocet) PO 07/11/24 12:45 1 tablet
Q6HPRN PRN Administration
moderate pain
Pantoprazole Sodium 40 mg 06/27/24 16:00 06/30/24 08:48
Pantoprazole 40 Mg Delayed Release Tablet PO 07/25/24 15:59 40 mg
DAILY IRINEO Administration
Patch Removal 0 patch 06/30/24 14:00
Remove Fentanyl Patch REMOVE 07/14/24 13:59
Q72H IRINEO
Polyethylene Glycol 17 grams 06/27/24 12:46
Polyethylene Glycol Powder 17 Grams Packet PO 07/25/24 12:45
DAILYPRN PRN
constipation
Propranolol HCl 10 mg 06/27/24 20:00 06/30/24 08:48
Propranolol 10 Mg Regular Release Tablet PO 07/25/24 19:59 10 mg
BID IRINEO Administration
Roflumilast 500 mcg 06/28/24 08:00 06/30/24 08:47
Roflumilast (Daliresp) 500 Mcg Tablet PO 07/26/24 07:59 500 mcg
DAILY IRINEO Administration
Senna/Docusate Sodium 1 tablet 06/27/24 12:46
Docusate W/Senna (Beverly-Colace) Tablet PO 07/25/24 12:45
BIDPRN PRN
constipation
Sodium Chloride 0 flush 06/27/24 13:00
Sodium Chloride 0.9% (Flush) Syringe IV 07/25/24 12:59
PER PROTOCOL IRINEO
Sterile Water 10 ml 06/28/24 08:00 06/30/24 08:45
Sterile Water For Injection 10 Ml Vial IV 07/26/24 07:59 10 ml
Q24H IRINEO Administration
Review of Systems
-
History Source: Patient
Constitutional: Reports No Symptoms
EENT: Reports No Symptoms
Respiratory: Reports Cough, Trouble Breathing and Wheezing
Cardiac: Reports No Symptoms
GI: Reports Diarrhea
Musculoskeletal: Reports Other (Bruising diffusely on upper extremities secondary to blood pressure and phlebotomy)
Hematologic/Lymphatic: Reports Bruising
Psych: Reports No Symptoms
Physical Exam
-
General: Well Developed, Well Nourished, Comfortable, Conversant and Obese
Pulmonary: Other (On nasal cannula oxygen supplementation)
GI: Soft
Musculoskeletal: No Clubbing, No Cyanosis and No Edema
Skin: Warm, Dry and Other (Bruising on upper extremities)
Psych: Calm
Labs
Lab Results
WBC 12.0 10^3/uL (4.8-10.8) H 06/30/24 07:25
RBC 3.85 10^6/uL (4.20-5.40) L 06/30/24 07:25
Hgb 11.6 g/dL (12.0-16.0) L 06/30/24 07:25
Hct 33.5 % (37.0-47.0) L 06/30/24 07:25
MCV 87.0 fL (81.0-99.0) 06/30/24 07:25
MCH 30.1 pg (27.0-31.0) 06/30/24 07:25
MCHC 34.6 g/dL (33.0-37.0) 06/30/24 07:25
RDW 12.9 % (11.5-14.5) 06/30/24 07:25
Plt Count 41 10^3/uL (130-400) L D 06/30/24 07:25
MPV 12.4 fL (7.4-10.4) H 06/30/24 07:25
Abs Immat Gran (auto) 0.1 10^3/uL (0-0.05) H 06/29/24 08:18
Absolute Neuts (auto) 4.2 10^3/uL (1.4-6.5) 06/29/24 08:18
Absolute Lymphs (auto) 2.0 10^3/uL (1.2-3.4) 06/29/24 08:18
Absolute Monos (auto) 0.4 10^3/uL (0.1-0.6) 06/29/24 08:18
Absolute Eos (auto) 0.0 10^3/uL (0-0.7) 06/29/24 08:18
Absolute Basos (auto) 0.0 10^3/uL (0-0.2) 06/29/24 08:18
Immature Gran % 0.9 % (0-0.5) H 06/29/24 08:18
Neutrophils % 62.7 % (42.2-75.2) 06/29/24 08:18
Lymphocytes % 30.2 % (20.5-51.1) 06/29/24 08:18
Monocytes % 5.9 % (1.7-9.3) 06/29/24 08:18
Eosinophils % 0.0 % (0-6) 06/29/24 08:18
Basophils % 0.3 % (0-2) 06/29/24 08:18
Creatinine 0.8 mg/dL (0.6-1.0) 06/30/24 07:25
Vital Signs
Vital Signs
Temp Pulse Resp BP Pulse Ox
97.8 F 93 18 105/47 97
06/30/24 07:00 06/30/24 08:04 06/30/24 08:04 06/30/24 07:00 06/30/24 08:04
[2024-06-30 11:52] LABS: Glucose - Point of Care 148 mg/dl (70-99)
[2024-06-30] MEDS: NOVOLOG FLEXPEN-MODERATE RESISTANCE SC (11:54)
[2024-06-30] MEDS: DURAGESIC 12 MCG/HR PATCH 1 PATCH TRANSDERM (13:07)
--- NOTE | 2024-06-30 13:48 | CM ---
Chart reviewed and recommendation is for home when stable.
Plan; Home when stable.
--- NOTE | 2024-06-30 16:26 | W.PN.HOSP.TC ---
Today's Communication/Plan
-
continue abx, change to oral Prednisone
Assessment / Plan
Assessment / Plan
AECOPD
Pt with >7 yr hx of COPD, had been doing reasonably well until past 3-4 days [employer] when progressively began to worsen, resulting in marked sob earlier on day of admission.
+Productive of thick yellow phlegm. Demonstrating improvement, still with cough, still with sob, but she is seeing improvement
Acute infectious asthmatic bronchitis
Decadron has been decreased to 2 mg IV q8h, will chart changer to Prednisone in AM
Nodule noted left lower lung 02/18 measuring 4 mm
IDDM
onset ~3yrs [employer], associated with use of Prednisone
glu 189-287. Increase in glu due to Decadron, breathing has improved, continue current insulin coverage
a1c 5.9%
Rheumatoid Arthritis
Hypomagnesemia
resolved
1.4-->2.1
On admission: Tmax 103.7, HR 110-120s, RR 20s
- IV abx Azithromycin, Ceftriaxone, Doxycycline given
- 06/28 PN 'Acute infectious asthmatic bronchitis'
Sepsis due to infectious asthmatic bronchitis
Thrombocytopenia
41-->53-->32-->41k
will follow, Heme consult appreciated
chronic pain and thus
Opioid Use with dependence
Hypomagnesemia
resolved, 1.4-->2.1
essential HTN
As per nursing, had run of NSVT 06/27- night, none since, possibly related to acute illness vs low Magnesium. Currently appears resolved
Morbid Obesity
affects all aspects
osteoporosis
cataracts
P:IV Decadron dose decreased and will chart changer to Prednisone
empiric abx
sputum for C&S
Pulm consult appreciated
multiple issues
Full Code
Anticipated Discharge: 24 - 48 hours
Subjective/Interval History
-
Date of Service: June 30, 2024
Believes she may be feeling a little better, though concerned about limited improvement
Objective Data
-
Labs:
Laboratory Results
06/30/24
07:25
WBC 12.0 H
Hgb 11.6 L
Hct 33.5 L
Plt Count 41 L D
Sodium 136
Potassium 4.4
Chloride 94 L
Carbon Dioxide 35 H
BUN 27 H
Creatinine 0.8
Glucose 137 H
Calcium 9.1
Vital Signs:
Vital Signs
Temp Pulse Resp BP Pulse Ox
98.1 F 84 18 122/59 97
06/30/24 15:00 06/30/24 16:13 06/30/24 16:13 06/30/24 15:00 06/30/24 16:13
I&O
06/29/24 06/30/24 07/01/24
06:59 06:59 06:59
Intake Total 1800 / 1800 840 / 840
Output Total 600 / 600
Balance 1800 / 1800 240 / 240
Review of Systems
-
History Source: Patient and Coordinated Provider
Constitutional: Reports Fever (103.7 9/16, 07:26, afebrile since)
EENT: Reports No Symptoms Reported
Respiratory: Reports Cough, Trouble Breathing and Wheezing
Cardiac: Reports No Symptoms; Denies Chest Pain
Abdomen/GI: Reports No Symptoms
Genitourinary: Reports No Symptoms
Neuro: Reports No Symptoms
Physical Exam
-
General: Well Developed, Well Nourished, Respiratory Distress (better), Appears Chronically Ill and Morbidly Obese
HEENT: Normocephalic, Atraumatic and Moist Mucous Membranes
Respiratory: Wheezes ( wheeze has decreased, not as high freq, moving air better)
Cardiac: Regular Rhythm and S1/S2
GI: Nontender and Nondistended
Musculoskeletal: No Clubbing, No Cyanosis and No Edema
Skin: Warm and Dry
Neuro: Awake, Alert and Oriented
Psych: Calm
[2024-06-30 17:18] LABS: Glucose - Point of Care 150 mg/dl (70-99)
[2024-06-30 21:25] LABS: Glucose - Point of Care 207 mg/dl (70-99)
[2024-06-30] MEDS: LANTUS 0.1 UNITS SC (21:46)
[2024-07-01] MEDS: DUONEB 3 ML INH ×6 (00:03→23:45)
[2024-07-01] MEDS: PERCOCET 5/325 1 TABLET PO ×4 (00:12→21:30)
[2024-07-01 04:15] VITALS: BP 117/48
[2024-07-01 05:46] VITALS: BMI 41.2
[2024-07-01 07:52] LABS: Hematocrit 30.6 % (37.0-47.0); Hemoglobin 10.5 g/dL (12.0-16.0); Mean Corp Hgb Conc. 34.3 g/dL (33.0-37.0); Mean Corpuscular Hgb 29.1 pg (27.0-31.0); Mean Corpuscular Volume 84.8 fL (81.0-99.0); Mean Platelet Volume 11.4 fL (7.4-10.4); Platelet Count 69 10^3/uL (130-400); Red Blood Cell Count 3.61 10^6/uL (4.20-5.40); Red Cell Dist. Width 12.9 % (11.5-14.5); White Blood Cell Count 17.5 10^3/uL (4.8-10.8)
[2024-07-01 07:53] LABS: INR 1.14; PT 14.4 Sec (11.4-14.6)
[2024-07-01 07:54] LABS: APTT 22.3 Sec (23.4-35.0)
[2024-07-01] MEDS: PULMICORT 0.5 MG INH (08:02)
[2024-07-01 08:08] LABS: Glucose - Point of Care 104 mg/dl (70-99)
[2024-07-01 08:12] LABS: D-Dimer > 20.00 ug/mlFEU (0.00-0.50)
[2024-07-01 08:15] VITALS: BP 144/81
[2024-07-01 08:16] LABS: Fibrinogen 70 MG/DL (199-459)
[2024-07-01] MEDS: NOVOLOG FLEXPEN-MODERATE RESISTANCE SC (08:17)
[2024-07-01] MEDS: STERILE WATER FOR INJECTION 10 ML IV (08:21)
[2024-07-01] MEDS: ROCEPHIN 1000 MG IV (08:21)
[2024-07-01] MEDS: DELTASONE 40 MG PO (08:21)
[2024-07-01] MEDS: INDERAL 10 MG PO ×2 (08:22→20:48)
[2024-07-01] MEDS: ZESTRIL 10 MG PO (08:22)
[2024-07-01] MEDS: LIPITOR 10 MG PO (08:22)
[2024-07-01] MEDS: GLUCOPHAGE 1000 MG PO ×2 (08:22→18:07)
[2024-07-01] MEDS: MUCINEX 1200 MG PO ×2 (08:22→20:49)
[2024-07-01] MEDS: LASIX 20 MG PO (08:22)
[2024-07-01] MEDS: PROTONIX 40 MG PO (08:22)
[2024-07-01] MEDS: MAGNESIUM OXIDE 500 MG PO ×2 (08:22→20:48)
[2024-07-01] MEDS: ASPIR LOW (ENTERIC COATED) 81 MG PO (08:22)
[2024-07-01] MEDS: VIBRAMYCIN 100 MG PO ×2 (08:22→20:49)
[2024-07-01] MEDS: DALIRESP 500 MCG PO (08:22)
[2024-07-01 08:32] LABS: % Basophils 0.4 % (0-2); % Eosinophils 0.1 % (0-6); % Immature Granulocytes 0.6 % (0-0.5); % Lymphocytes 64.5 % (20.5-51.1); % Monocytes 7.4 % (1.7-9.3); Absolute Basophils 0.1 10^3/uL (0-0.2); Absolute Immature Granulocytes 0.1 10^3/uL (0-0.05); Absolute Lymphocytes 11.3 10^3/uL (1.2-3.4); Absolute Monocytes 1.3 10^3/uL (0.1-0.6); Absolute Neutrophils 4.7 10^3/uL (1.4-6.5); Blood Urea Nitrogen 30 mg/dl (7-17); Calcium 9.4 mg/dl (8.4-10.2); Carbon Dioxide 27 mmol/L (22-30); Chloride 97 mmol/L (98-107); Estimated Creatinine Clearance 86 ml/min; Glucose 100 mg/dl (70-99); Nucleated Red Blood Cells % 0.2 %; Potassium 4.2 mmol/L (3.5-5.1); Sodium 137 mmol/L (135-145); eGFR > 60.00
--- NOTE | 2024-07-01 09:42 | W.PN.PUL3 ---
Today's Communication / Plan
-
Continue prednisone taper
Continue nebulizer therapy
Secretion clearance intervention
Continue antibiotics
Follow sputum culture
Trend platelet count; stop dupixent given concern for ITP
Continue oxygen supplementation and check ambulatory pulse oximetry prior to discharge
Repeat CT chest in 3 months to assess stability of growing LLL nodule (currently 5.7mm from 4mm four months ago)
Will follow; will arrange for outpatient follow up with Dr. Caraballo
Assessment
-
Impression:
Acute exacerbation COPD/asthma overlap-likely tracheobronchitis.
Chest x-ray is clear.
Thrombocytopenia new compared to prior
Condition present prior admission
Known h/o stage IV COPD, on home O2 2LPM, albuterol HFA, azithromycin 500 mg MWF, budesonide, DNs, prednisone 10 mg qd, roflumilast. Previously on palliative care, which she discontinued herself
Stanislaw 01/2021- FEV1 0.75L 31%, FVC 1.53L 49%, ratio 54
AB.4/49/64-room air-08/2018
[id number] smoker- quit 2018
Borderline low level of IgG 10/21/2017-subclasses were normal
Emphysema on CT
4 mm lung nodule new compared to prior left lower lobe on CAT scan 02/19/2024
COPD exacerbations 08/2018, 11/22/18, 12/08/18, 12/30/2018, April 2022
Heart failure with with preserved ejection fraction
Echocardiogram 05/29/2023: Reviewed,. Poor visualization. Normal LVEF. No significant valvular abnormalities.
Hypertension
Hyperlipidemia
Type 2 diabetes
Cholecystectomy Aug 2018
Rheumatoid arthritis on chronic methotrexate
GERD
Family history of hepatitis C (Brother), prostate cancer (Brother), COPD (mother), lung cancer (father)
Chronic back pain, on disability. S/P vertebroplasty. Recurrent Compression fractures-T4, 5-noted on low-dose CT chest 07/2018
Obesity
Snoring: Recent sleep study without obstructive sleep apnea.
Deconditioning
Former smoker
Assessment and plan:
Acute COPD/asthma exacerbation. Tracheobronchitis/asthmatic bronchitis.
Chest x-ray without evidence for acute infection.
Productive of yellow thick phlegm.
Wheezing resolved as of 07/01
-
Continue with current regimen.
Start prednisone taper today with slow taper s/p IV decadron
Continue antibiotics regimen: Ceftriaxone/doxycycline-if all cultures negative complete total 5-7 days of antibiotics for bronchitis.
Sputum culture pending (NGTD)
Nebulizer therapy which is her baseline management in the outpatient setting - currently on budesonide + DuoNebs QID
While on antibiotics hold low-dose azithromycin.
Continue Roflumilast
In the outpatient on Dupixent --> she wishes to stop as she has been feeling worse after injections; ITP is a post-marketing adverse reaction and she may have this
Continue oxygen therapy to maintain pulse ox 88-95%. Remains on low rate supplemental oxygen.
-Check ambulatory pulse oximetry prior to discharge
CTA chest performed today (07/01) shows increasing size of LLL nodule, now 5.7mm from 4mm four months prior. She will need repeat CT chest in 3 months to assess stability.
-
Secretion clearance intervention
Acapella device encouraged.
Mucolytics
Vest therapy will be used if patient had difficulty expectorating.
-
Patient reports significant GERD symptoms. May be triggering symptoms as well. Continue Protonix
-
Thrombocytopenia: Improving - possibly related to Dupixent (ITP related). Transfuse if needed to keep >20k (>50k if she starts to bleed)
-
Monitor blood sugars particularly on high-dose of steroids
Goal >100 and <180mg/dL
-
DVT prophylaxis
-
Will follow
Total time spent today was 35 minutes for this encounter. Time includes reviewing laboratory test/imaging results, reviewing pertinent medical records, obtaining and reviewing medical history, performing an appropriate exam, ordering medications,
tests and procedures. Time also includes documentation of this encounter, coordinating patient care and communicating with other healthcare professionals. Total time does not include separately billed tests performed on this date of service.
Subjective Data
-
Date of Service:
Date of Service: July 01, 2024
Chief Complaint: Pulmonary Follow Up (Acute exacerbation of COPD)
Subjective:
Pt seen at bedside today. She feels better, even able to walk around the muhammad without significant SOB. Currently on 2L/min, and breathing comfortably. Denies chest pain, RAMIREZ, abd pain, N/V/f/c.
Review of Systems
General: Other (negative unless mentioned above)
Objective Data
Data Reviewed
Vital Signs / I&O / Oxygen:
Vital Signs
Temp Pulse Resp BP Pulse Ox
98.3 F 84 19 126/70 98
07/01/24 10:49 07/01/24 10:49 07/01/24 10:49 07/01/24 10:49 07/01/24 10:49
Intake and Output
06/30/24 07/01/24 07/02/24
06:59 06:59 06:59
Intake Total 840 / 840 480 / 480
Output Total 600 / 600
Balance 240 / 240 480 / 480
SaO2 98
Nasal Cannula flow liters per 2
minute
Physical Exam
General: Respiratory Distress (negative) and Comfortable
HEENT: Normocephalic and Anicteric
Cardiovascular: S1-S2, Peripheral Edema (negative) and Other (distant heart sounds)
Respiratory: Clear, Wheeze (negative), Crackles (negative), Rhonchi (negative) and Non-Labored Respirations
GI: Soft, Distended (Obese), Non Tender and Normal Bowel Sounds
Neurology: AO x 3 and Tremors (negative)
Skin: Warm, Dry and Jaundice (negative)
Labs/Micro/Reports
Lab Data
07/01/24 06:16
07/01/24 06:16
Laboratory Results
07/01/24
06:16
PT 14.4
INR 1.14
APTT 22.3 L
Microbiology
06/27/24 07:45 Blood/Venous Blood Culture - Preliminary
No Growth in 4 days- Final report to follow
06/27/24 07:38 Blood/Venous Blood Culture - Preliminary
No Growth in 4 days- Final report to follow
06/28/24 12:37 Sputum Respiratory Culture - Final
06/28/24 12:37 Sputum Gram Stain - Final
[2024-07-01 10:49] VITALS: BP 126/70
[2024-07-01 11:44] LABS: Vitamin B12 389 pg/ml (239-931)
[2024-07-01 11:53] LABS: Glucose - Point of Care 184 mg/dl (70-99)
[2024-07-01] MEDS: NOVOLOG FLEXPEN-MODERATE RESISTANCE 1 UNITS SC ×2 (12:06→18:07)
--- NOTE | 2024-07-01 13:55 | CM ---
Chart reviewed and plan is to home no needs when stable, son is caregiver, patient has own oxygen for discharge. Patient has declined visiting nurse services.
Plan; Home home needs. Patient has all her own equipment.
[2024-07-01 14:46] VITALS: BP 123/57
[2024-07-01 18:05] LABS: Glucose - Point of Care 175 mg/dl (70-99)
--- NOTE | 2024-07-01 18:07 | W.PN.HOSP.TC ---
Today's Communication/Plan
-
CT-A of lungs, venous doppler
Assessment / Plan
Assessment / Plan
AECOPD
Pt with >7 yr hx of COPD, had been doing reasonably well until past 3-4 days [employer] when progressively began to worsen, resulting in marked sob earlier on day of admission.
+Productive of thick yellow phlegm. Demonstrating improvement, still with cough, still with sob, but she is seeing improvement
Acute infectious asthmatic bronchitis
Decadron has been decreased to 2 mg IV q8h, will knife changer to Prednisone in AM
Nodule noted left lower lung 02/18 measuring 4 mm
IDDM
onset ~3yrs [employer], associated with use of Prednisone
glu 189-287. Increase in glu due to Prednisone, breathing has improved, continue current insulin coverage
a1c 5.9%
Rheumatoid Arthritis
Hypomagnesemia
resolved
1.4-->2.1
On admission: Tmax 103.7, HR 110-120s, RR 20s
- IV abx Azithromycin, Ceftriaxone, Doxycycline given
- 06/28 PN 'Acute infectious asthmatic bronchitis'
Sepsis due to infectious asthmatic bronchitis
Thrombocytopenia
41-->53-->32-->41-->69k
will follow, Heme consult appreciated
D-Dimer >20
Fibrinogen 70 ([id number])
CT-A of chest ordered, along with Venous Doppler. Call placed and discussed with Dr. Mitchell. Dr. Clifford noted case reports of ITP induced by Dupixent. Doubt PE, but ITP potential source of lab abnormality
chronic pain and thus
Opioid Use with dependence
Hypomagnesemia
resolved, 1.4-->2.1
essential HTN
As per nursing, had run of NSVT 06/27- night, none since, possibly related to acute illness vs low Magnesium. Currently appears resolved
Morbid Obesity
affects all aspects
osteoporosis
cataracts
P:IV Decadron dose decreased and was changed over to Prednisone
empiric abx
sputum for C&S
Pulm consult appreciated
multiple issues, complex visit
Will hold dc until clarify lab changes
Full Code
Anticipated Discharge: 24 - 48 hours
Subjective/Interval History
-
Date of Service: July 01, 2024
Pt feeling less sob, still with cough
Objective Data
-
Labs:
Laboratory Results
07/01/24
06:16
WBC 17.5 H
Hgb 10.5 L
Hct 30.6 L
Plt Count 69 L D
PT 14.4
INR 1.14
APTT 22.3 L
Sodium 137
Potassium 4.2
Chloride 97 L
Carbon Dioxide 27
BUN 30 H
Creatinine 0.7
Glucose 100 H
Calcium 9.4
Vital Signs:
Vital Signs
Temp Pulse Resp BP Pulse Ox
97.6 F 85 18 123/57 99
07/01/24 14:46 07/01/24 16:09 07/01/24 16:09 07/01/24 14:46 07/01/24 16:09
I&O
06/30/24 07/01/24 07/02/24
06:59 06:59 06:59
Intake Total 840 / 840 480 / 480 180 / 180
Output Total 600 / 600
Balance 240 / 240 480 / 480 180 / 180
Review of Systems
-
History Source: Patient and Coordinated Provider
Constitutional: Reports Fever (103.7 06/27, 07:26, afebrile since)
EENT: Reports No Symptoms Reported
Respiratory: Reports Cough, Trouble Breathing and Wheezing
Cardiac: Reports No Symptoms; Denies Chest Pain
Abdomen/GI: Reports No Symptoms
Genitourinary: Reports No Symptoms
Neuro: Reports No Symptoms
Physical Exam
-
General: Well Developed, Well Nourished, Respiratory Distress (better), Appears Chronically Ill and Morbidly Obese
HEENT: Normocephalic, Atraumatic and Moist Mucous Membranes
Respiratory: Wheezes (essentially resolved)
Cardiac: Regular Rhythm and S1/S2
GI: Nontender and Nondistended
Musculoskeletal: No Clubbing, No Cyanosis and No Edema
Skin: Warm and Dry
Neuro: Awake, Alert and Oriented
Psych: Calm
[2024-07-01 19:40] LABS: Platelet Antibody, Direct IgG Negative (Negative); Platelet Antibody, Direct IgM Positive (Negative)
[2024-07-01 19:48] VITALS: BP 148/64
[2024-07-01] MEDS: DUONEB INH (20:22)
[2024-07-01] MEDS: PULMICORT INH (20:22)
[2024-07-01 21:24] LABS: Glucose - Point of Care 137 mg/dl (70-99)
[2024-07-01] MEDS: LANTUS 0.1 UNITS SC (21:29)
[2024-07-01 23:22] VITALS: BP 127/71
[2024-07-02] MEDS: DUONEB 3 ML INH ×3 (03:34→11:21)
[2024-07-02 03:40] VITALS: BP 129/64
[2024-07-02] MEDS: PERCOCET 5/325 1 TABLET PO ×2 (03:46→11:52)
[2024-07-02 05:15] LABS: Hemoglobin 10.5 g/dL (12.0-16.0); Mean Corp Hgb Conc. 33.9 g/dL (33.0-37.0); Mean Corpuscular Hgb 30.2 pg (27.0-31.0); Mean Corpuscular Volume 89.1 fL (81.0-99.0); Mean Platelet Volume 10.1 fL (7.4-10.4); Platelet Count 98 10^3/uL (130-400); Red Blood Cell Count 3.48 10^6/uL (4.20-5.40); Red Cell Dist. Width 12.8 % (11.5-14.5); White Blood Cell Count 15.2 10^3/uL (4.8-10.8)
[2024-07-02 05:42] VITALS: BMI 40.9
[2024-07-02 06:48] LABS: % Basophils 0.2 % (0-2); % Eosinophils 0.5 % (0-6); % Immature Granulocytes 0.9 % (0-0.5); % Lymphocytes 67.7 % (20.5-51.1); % Monocytes 5.1 % (1.7-9.3); % Neutrophils 25.6 % (42.2-75.2); Absolute Eosinophils 0.1 10^3/uL (0-0.7); Absolute Immature Granulocytes 0.1 10^3/uL (0-0.05); Absolute Lymphocytes 10.3 10^3/uL (1.2-3.4); Absolute Monocytes 0.8 10^3/uL (0.1-0.6); Absolute Neutrophils 3.9 10^3/uL (1.4-6.5); Nucleated Red Blood Cells % 0.3 %
[2024-07-02 07:00] VITALS: BP 129/74
[2024-07-02 07:33] LABS: Glucose - Point of Care 81 mg/dl (70-99)
[2024-07-02] MEDS: NOVOLOG FLEXPEN-MODERATE RESISTANCE SC (07:37)
[2024-07-02] MEDS: PULMICORT 0.5 MG INH (07:44)
[2024-07-02] MEDS: MAGNESIUM OXIDE 500 MG PO (08:29)
[2024-07-02] MEDS: DELTASONE 40 MG PO (08:29)
[2024-07-02] MEDS: GLUCOPHAGE 1000 MG PO (08:29)
[2024-07-02] MEDS: DALIRESP 500 MCG PO (08:29)
[2024-07-02] MEDS: PROTONIX 40 MG PO (08:29)
[2024-07-02] MEDS: LASIX 20 MG PO (08:30)
[2024-07-02] MEDS: ROCEPHIN 1000 MG IV (08:30)
[2024-07-02] MEDS: ZESTRIL 10 MG PO (08:30)
[2024-07-02] MEDS: ASPIR LOW (ENTERIC COATED) 81 MG PO (08:30)
[2024-07-02] MEDS: STERILE WATER FOR INJECTION 10 ML IV (08:30)
[2024-07-02] MEDS: VIBRAMYCIN 100 MG PO (08:30)
[2024-07-02] MEDS: INDERAL 10 MG PO (08:30)
[2024-07-02] MEDS: LIPITOR 10 MG PO (08:30)
[2024-07-02] MEDS: MUCINEX 1200 MG PO (08:30)
--- NOTE | 2024-07-02 08:43 | W.PN.ONC ---
Today's Communication / Plan
-
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
Positive IgM direct platelet antibody noted
Clinical serum sickness with elevated D-dimer and critically low fibrinogen
Transfuse FFP for atypical bleeding
PT PTT normal range
Repeat D-dimer and fibrinogen today if improving reasonable to discharge
CTA negative for thrombus
Impression
Impression
COPD exacerbation
Dupixent associated serum sickness and ITP
Low-grade DIC
Subjective/Objective
Subjective/Objective
Patient stable without progressive dyspnea.
Vital Signs:
Vital Signs
Temp Pulse Resp BP Pulse Ox
97.5 F 77 18 129/74 95
07/02/24 07:00 07/02/24 07:48 07/02/24 07:48 07/02/24 07:00 07/02/24 07:48
Physical examination
No evidence of epistaxis or mucosal bleeding
Regular
Decreased breath sounds with expiratory wheeze
Skin capillary fragility and ecchymosis on the dorsum of the arms no other atypical ecchymoses
Lower extremity symmetrical
Lab Results:
Laboratory Data
WBC 15.2 10^3/uL (4.8-10.8) H 07/02/24 04:34
Hgb 10.5 g/dL (12.0-16.0) L 07/02/24 04:34
Plt Count 98 10^3/uL (130-400) L D 07/02/24 04:34
PT 14.4 Sec (11.4-14.6) 07/01/24 06:16
INR 1.14 07/01/24 06:16
APTT 22.3 Sec (23.4-35.0) L 07/01/24 06:16
eGFR > 60.00 07/01/24 06:16
[2024-07-02 10:27] LABS: D-Dimer 3.66 ug/mlFEU (0.00-0.50)
[2024-07-02 10:44] LABS: Fibrinogen 95 MG/DL (199-459)
[2024-07-02 11:09] VITALS: BP 134/67
--- NOTE | 2024-07-02 11:34 | W.PN.PUL.V3 ---
Today's Communication / Plan
-
Prednisone 40 mg with slow taper-40 mg daily for 4 days, then 30 mg daily for 4 days and then 20 mg daily till seen by pulmonary
Nebulizers
Mucolytics
Finite course of antibiotics
D-dimer and fibrinogen today-if improving potential discharge
Outpatient pulmonary follow-up
Assessment
-
Impression:
Acute exacerbation COPD/asthma overlap-likely tracheobronchitis.
Chest x-ray is clear.
Thrombocytopenia new compared to prior
Condition present prior admission
Known h/o stage IV COPD, on home O2 2LPM, albuterol HFA, azithromycin 500 mg MWF, budesonide, DNs, prednisone 10 mg qd, roflumilast. Previously on palliative care, which she discontinued herself
Stanislaw 01/2021- FEV1 0.75L 31%, FVC 1.53L 49%, ratio 54
AB.4/49/64-room air-08/2018
[id number] smoker- quit 2018
Borderline low level of IgG 10/21/2017-subclasses were normal
Emphysema on CT
4 mm lung nodule new compared to prior left lower lobe on CAT scan 02/19/2024
COPD exacerbations 08/2018, 11/22/18, 12/08/18, 12/30/2018, April 2022
Heart failure with with preserved ejection fraction
Echocardiogram 05/29/2023: Reviewed,. Poor visualization. Normal LVEF. No significant valvular abnormalities.
Hypertension
Hyperlipidemia
Type 2 diabetes
Cholecystectomy Aug 2018
Rheumatoid arthritis on chronic methotrexate
GERD
Family history of hepatitis C (Brother), prostate cancer (Brother), COPD (mother), lung cancer (father)
Chronic back pain, on disability. S/P vertebroplasty. Recurrent Compression fractures-T4, 5-noted on low-dose CT chest 07/2018
Obesity
Snoring: Recent sleep study without obstructive sleep apnea.
Deconditioning
Former smoker
Assessment and plan:
Her respiratory status has improved and nearly back to her baseline which is quite tenuous with end-stage COPD/asthma overlap
Supplemental oxygen as needed-has home oxygen
Aspiration precautions
Nebulizers
Inhalers
Mucolytic's
Mucus clearing devices
Vest therapy continues
Prednisone taper
Continue Roflumilast
CTA chest performed today (07/01/24) shows increasing size of LLL nodule, now 5.7mm from 4mm four months prior.
She will need repeat CT chest in 3 months to assess stability.
Monitor platelets-improving
Hematology following-positive IgM direct platelet antibodies noted, clinical serum sickness with elevated D-dimer and critically low fibrinogen
Transfuse FFP for atypical bleeding
Repeat D-dimer and fibrinogen and if improving then could be discharged
Monitor blood sugar
Insulin supplementation as needed
DVT prophylaxis
GI prophylaxis-on Protonix
Nutrition
Increase activity
Stable from a pulmonary perspective for discharge-pulmonary will sign off-please call with questions
Outpatient pulmonary [id number] need CT chest in 3 months to assess left lower lobe pulmonary nodule stability
Subjective Data
-
Date of Service:
Date of Service: July 02, 2024
Chief Complaint: Pulmonary Follow Up (Acute exacerbation of COPD) and Dyspnea Follow Up
Subjective:
Respiratory status improving, nearly back to baseline, no complaints of shortness of breath, chest pain or abdominal pain, has wheezing and chronic dyspnea with minimal exertion
Review of Systems
General: Other (Per HPI)
Objective Data
Data Reviewed
Vital Signs / I&O:
Vital Signs
Temp Pulse Resp BP Pulse Ox
97.9 F 79 18 134/67 95
07/02/24 11:09 07/02/24 11:24 07/02/24 11:24 07/02/24 11:09 07/02/24 11:24
Intake and Output
07/01/24 07/02/24 07/03/24
06:59 06:59 06:59
Intake Total 480 / 480 300 / 300
Balance 480 / 480 300 / 300
SaO2: 95
Nasal Cannula flow liters per minute: 2
Physical Exam
General: Respiratory Distress (negative) and Comfortable
HEENT: Normocephalic and Anicteric
Cardiovascular: Regular Rhythm, Peripheral Edema (negative) and Other (distant heart sounds)
Respiratory: Clear, Wheeze (negative), Crackles (negative), Rhonchi (negative) and Non-Labored Respirations
GI: Soft, Distended (Obese), Non Tender and Normal Bowel Sounds
Neurology: AO x 3 and Tremors (negative)
Skin: Warm, Dry and Jaundice (negative)
Labs/Micro/Reports
Lab Data
07/02/24 04:34
07/01/24 06:16
Microbiology
06/27/24 07:45 Blood/Venous Blood Culture - Final
No Growth - Final Report
06/27/24 07:38 Blood/Venous Blood Culture - Final
No Growth - Final Report
[2024-07-02 11:40] LABS: Glucose - Point of Care 168 mg/dl (70-99)
[2024-07-02] MEDS: NOVOLOG FLEXPEN-MODERATE RESISTANCE 1 UNITS SC (12:53)
--- NOTE | 2024-07-02 13:57 | W.PN.HOSP.TC ---
Today's Communication/Plan
-
dc to home
Assessment / Plan
Assessment / Plan
AECOPD
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
+Productive of thick yellow phlegm. Markedly improved
Acute infectious asthmatic bronchitis
Now on Prednisone with slow taper
Nodule noted left lower lung 5/10 measuring 4 mm
IDDM
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
glu 189-287. Increase in glu due to Prednisone, breathing has improved, continue current insulin coverage, continue insulin coverage
a1c 5.9%
Rheumatoid Arthritis
Hypomagnesemia
resolved
1.4-->2.1
On admission: Tmax 103.7, HR 110-120s, RR 20s
- IV abx Azithromycin, Ceftriaxone, Doxycycline given
- 06/28 PN 'Acute infectious asthmatic bronchitis'
Sepsis due to infectious asthmatic bronchitis
Thrombocytopenia
41-->53-->32-->41-->69-->98k
will follow, Heme consult appreciated
D-Dimer >20 prior, now 3.66
Fibrinogen 70 (199-459)-->95
CT-A of chest neg for PE, neg Venous Doppler. Reviewed with Dr. 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
chronic pain and thus
Opioid Use with dependence
Hypomagnesemia
resolved, 1.4-->2.1
essential HTN
As per nursing, had run of NSVT 06/27- night, none since, possibly related to acute illness vs low Magnesium. Currently appears resolved
Morbid Obesity
affects all aspects
osteoporosis
cataracts
P:dc to home
complex discharge
see dictated note
Full Code
More than 30 minutes spent in discharge including
Final examination of the patient
Summarizing hospital stay
Instructions for continuing care to all relevant caregivers
Preparation of discharge records, prescriptions, and referral forms
Total time spent (in minutes): 45
Anticipated Discharge: Today
Subjective/Interval History
-
Date of Service: July 02, 2024
Feels much better and is anxiously awaiting dc
Objective Data
-
Labs:
Laboratory Results
07/02/24
04:34
WBC 15.2 H
Hgb 10.5 L
Hct 31.0 L
Plt Count 98 L D
Vital Signs:
Vital Signs
Temp Pulse Resp BP Pulse Ox
97.9 F 79 18 134/67 95
07/02/24 11:09 07/02/24 11:24 07/02/24 11:24 07/02/24 11:09 07/02/24 11:40
I&O
07/01/24 07/02/24 07/03/24
06:59 06:59 06:59
Intake Total 480 / 480 300 / 300
Balance 480 / 480 300 / 300
Review of Systems
-
History Source: Patient and Coordinated Provider
Constitutional: Reports Fever (103.7 9/16, 07:26, afebrile since)
EENT: Reports No Symptoms Reported
Respiratory: Reports Cough (better), Trouble Breathing (markedly improved) and Wheezing (at baseline)
Cardiac: Reports No Symptoms; Denies Chest Pain
Abdomen/GI: Reports No Symptoms
Genitourinary: Reports No Symptoms
Neuro: Reports No Symptoms
Physical Exam
-
General: Well Developed, Well Nourished, Respiratory Distress (better), Appears Chronically Ill and Morbidly Obese
HEENT: Normocephalic, Atraumatic and Moist Mucous Membranes
Respiratory: Wheezes (essentially resolved, coarse wheeze with good air movement)
Cardiac: Regular Rhythm and S1/S2
GI: Nontender and Nondistended
Musculoskeletal: No Clubbing, No Cyanosis and No Edema
Skin: Warm and Dry
Neuro: Awake, Alert and Oriented
Psych: Calm
--- NOTE | 2024-07-02 14:39 | CM ---
Addendum entered by Jessica Blanco 07/02/24 15:55:
CM placed call to [facility] intake to discuss referral/patient discharge, left voicemail (P:[phone]).
F:[phone]
Original Note:
Patient seen bedside, plan for discharge today. Patient reports her son will provide transportation home. Patient agreeable to [facility], reports history of [facility], referral placed in [facility]. IMM reviewed, signed, placed in chart. Patient upset
that her glasses were lost during hospital stay, provided risk management contact. CM will continue to follow for all discharge planning needs.
Plan; home with son, referral placed to [facility].
[2024-07-02 15:00] VITALS: BP 120/55
--- NOTE | 2024-07-04 10:18 | W.DS.TRANS ---
DC Summary - Service Learning Coordinator
-
Discharge Instructions:
Discharge Diagnosis/Procedures Acute Asthmatic Bronchitis
Diet Diabetic, Carb Controlled
Activity No strenuous activity
Driving Restrictions No driving
Bathing Restrictions None
Blood Work CBC, CMP, Magnesium level, Fibrinogen in 1-2
weeks
Other Services VN
Instructions:
Stand-Alone Forms:
Changes to Home Medications: Yes
Discharge Medications:
DC Medications w/original date entered in [facility]
propranolol 10 mg tablet 10 mg PO BID tremors 09/18/17
simvastatin 20 mg tablet 20 mg PO DAILY High cholesterol 09/18/17
metformin 1,000 mg tablet 1,000 mg PO BID@0800,1700 ##120 09/10/18
insulin aspart U-100 100 unit/mL (3 mL) subcutaneous pen (Novolog FlexPen U-100 Insulin aspart) 2 - 11 sliding scale dose SC ACHS Diabetes 11/19/18
albuterol sulfate 90 mcg/actuation aerosol inhaler 2 puff inhalation R Q4HPRN PRN SOB 06/21/19
aspirin 81 mg tablet,delayed release 81 mg PO DAILY Blood pressure 06/21/19
budesonide 0.5 mg/2 mL suspension for nebulization 0.5 mg (2 mL) inhalation R BID #0 mL 04/27/22
roflumilast 500 mcg tablet (Daliresp) 500 mcg PO DAILY Anti-inflammatory #30 tabs 04/27/22
fentanyl 12 mcg/hr transdermal patch 1 patch topical Q72H Pain 09/08/22
ipratropium 0.5 mg-albuterol 3 mg (2.5 mg base)/3 mL nebulization soln 3 ml inhalation R QID Lung/breathing issues 09/08/22
furosemide 20 mg tablet 20 mg PO DAILY Fluid retention/Swelling 09/13/22
oxycodone-acetaminophen 5 mg-325 mg tablet 1 tab PO Q6HPRN PRN moderate pain 09/13/22
lisinopril 10 mg tablet 10 mg PO DAILY Blood pressure 09/14/22
azithromycin 250 mg tablet 500 mg PO MOWEFR Infection 06/27/24
cefuroxime axetil 500 mg tablet 500 mg PO BID 7 days #14 tabs 07/02/24
doxycycline hyclate 100 mg capsule 100 mg PO Q12 #20 caps 07/02/24
magnesium oxide 500 mg PO DAILY #30 tabs 07/02/24
prednisone 10 mg tablet 10 mg PO DIRECTED #90 tabs 07/02/24
Home Medication Changes
Ceftin added for next 7 days
Doxycycline added for next 10 days
Prednisone taper added
Magnesium supplement added
stop Dupixent
Pending Results: No
== END 2024-07-02 15:49 | disposition home health service (06) | DRG 872 ==
LOC: 4 WEST ACU 12:00
PROVIDERS: Nurse Practitioner Acute Care; Nurse Practitioner Family; Physician Assistant; ADMITTING PHYSICIAN Internal Medicine; CONSULT PHYSICIAN Internal Medicine Critical Care Medicine; EMERGENCY PHYSICIAN Emergency Medicine; FAMILY PHYSICIAN Family Medicine; OTHER PHYSICIAN Internal Medicine Hematology & Oncology
DX: A41.9 Sepsis, unspecified organism (principal); J44.1 Chronic obstructive pulmonary disease with (acute) exacerbation; Z68.41 Body mass index [BMI] 40.0-44.9, adult; F11.20 Opioid dependence, uncomplicated; D69.3 Immune thrombocytopenic purpura; F17.210 Nicotine dependence, cigarettes, uncomplicated; E11.36 Type 2 diabetes mellitus with diabetic cataract; Z79.4 Long term (current) use of insulin; M06.9 Rheumatoid arthritis, unspecified; I50.9 Heart failure, unspecified; I11.0 Hypertensive heart disease with heart failure; E66.01 Morbid (severe) obesity due to excess calories; M81.0 Age-related osteoporosis without current pathological fracture; E83.42 Hypomagnesemia; R65.10 Systemic inflammatory response syndrome (SIRS) of non-infectious origin without acute organ dysfunction
CPT/HCPCS: 71046; 71275; 80048; 80053; 82607; 82746; 82962; 83036; 83605; 83735; 83880; 85025; 85379; 85384; 85610; 85730; 86023; 87040; 87205; 87502; 87811; 93005; 93970; 94640; 96374; 96375; 97116; 97163; 97166; 97530; 99285; Q9967

== ENCOUNTER → 2024-09-30 16:18 | Outpatient (REF) | payer MEDICARE, OTHER, SELFPAY | LOC: RAD 16:18 | PROVIDERS: ATTENDING PHYSICIAN Nurse Practitioner Family | DX: R91.1 Solitary pulmonary nodule (principal) | CPT/HCPCS: 71250 ==

== ENCOUNTER 2025-06-06 15:58 | Emergency (ER) | payer MEDICARE, OTHER, SELFPAY ==
[2025-06-06 16:00] VITALS: BP 138/96
[2025-06-06 16:06] LABS: Glucose - Point of Care 166 mg/dl (70-99)
[2025-06-06 16:42] VITALS: BMI 41.8
[2025-06-06 16:45] VITALS: BP 116/82
[2025-06-06 17:00] VITALS: BP 106/91
[2025-06-06 17:06] LABS: Hematocrit 41.0 % (37.0-47.0); Hemoglobin 13.9 g/dL (12.0-16.0); Mean Corp Hgb Conc. 33.9 g/dL (33.0-37.0); Mean Corpuscular Volume 88.2 fL (81.0-99.0); Nucleated Red Blood Cells % 0 %; Platelet Count 206 10^3/uL (130-400); Red Cell Dist. Width 12.9 % (11.5-14.5)
--- NOTE | 2025-06-06 17:39 | ED.GENMED ---
History of Present Illness
General
Chief Complaint: Facial Problem
Source: patient
Exam Limitations: none
Time Seen by Provider: 06/06/25 16:33
Nursing documentation reviewed up to this point in time: agreed with
History of Present Illness
History of Present Illness:
70-year-old female with history as noted presents to the ER for evaluation of right sided facial pain and swelling. Of note patient is adentulous and wears dentures. She reports that yesterday she started having some pain along the right side of
her face and over the past 24 hours has had progressive swelling she says from the periorbital region down towards the right cheek and jaw. She noticed a lump around the right side of her jaw. She has not noticed any swelling of the tongue or
lips. She denies any trouble breathing or swallowing. She denies any other acute complaints.
Past History
Past History
ED Past Medical History: COPD, HTN, Hypercholesterolemia, IDDM and Other (Rheumatoid arthritis, osteoporosis, cataracts)
ED Past Surgical History: Cholecystectomy, Gynecological (Partial hysterectomy) and Urological (Bladder sling)
Social History
Tobacco: Former smoker
Alcohol: None
Drug: None
Personal:
Living: alone (Her son keeps an eye on her)
Review of Systems
Review of Systems
All Other Systems: ROS reviewed and negative except as documented in HPI and ROS
Constitutional: Denies fever
EENT: Reports other (Facial swelling)
Respiratory: Denies trouble breathing
Cardiac: Denies chest pain
ABD/GI: Denies abdominal pain or vomiting
Neurological: Denies dizzy or headache
Phy Exam
Physical Exam
Physical Exam:
General: Awake, alert, oriented x3; no acute distress
Head: Normocephalic, atraumatic; she does have swelling in the right maxillary and preauricular region as well as along the right mandible with tenderness along the right mandible
Eyes: Conjunctiva normal, EOMI; slight infraorbital edema
Throat: Airway intact, handling secretions; she is a dentulous; no tongue elevation, no swelling or wounds/ulcers noted in the mouth
Neck: Trachea midline, supple without meningismus, no appreciable adenopathy
Lungs: Breathing comfortably with no distress, no stridor
Heart: Tachycardia
Skin: No rash in area of concern
Extremities: Warm and well-perfused
Scores
Heart Failure Risk
Heart Failure Risk Score: Not Applicable
Heart Score for Chest Pain Patients
STEMI patient?: Not applicable
Withdrawal Assessment of Alcohol
Withdrawal Assessment Completed?: Not applicable
Course
Orders/Labs/Results
Orders:
Orders
06/06/25 16:[address] Facial Bones W/ Iv Contrast Urgent
Comment:
Reason For Exam: right sided facial swelling, pain
06/06/25 16:57
Complete Blood Count/With Diff Urgent
Comprehensive Metabolic Panel Urgent
Abnormal Lab Results
06/06/25 06/06/25
16:05 16:57
WBC 12.1 H 10^3/uL
(4.8-10.8)
Abs Immat Gran (auto) 0.2 H 10^3/uL
(0-0.05)
Absolute Neuts (auto) 9.3 H 10^3/uL
(1.4-6.5)
Immature Gran % 1.5 H %
(0-0.5)
Neutrophils % 76.6 H %
(42.2-75.2)
Lymphocytes % 17.2 L %
(20.5-51.1)
Sodium 134 L mmol/L
(135-145)
Glucose 169 H mg/dl
(70-99)
ALT 37 H U/L
(0-35)
POC Glucose 166 H mg/dl
(70-99)
06/06/25 16:57
06/06/25 16:57
Vital Signs
Initial and Last Documented VS:
Initial Vital Signs
Temp Pulse Resp BP Pulse Ox
37.0 C 110 17 138/96 97
06/06/25 16:00 06/06/25 16:00 06/06/25 16:00 06/06/25 16:00 06/06/25 16:00
Last Documented Vital Signs
Temp Pulse Resp BP Pulse Ox
37.0 C 110 18 138/96 2
06/06/25 16:00 06/06/25 16:00 06/06/25 19:01 06/06/25 16:00 06/06/25 17:45
MDM/Problems Addressed
Differential Diagnosis Includes:
Sialoadenitis, parotitis, dental abscess, angioedema, adenitis
MDM/Problems Addressed:
70-year-old female presents to the ER for evaluation of right sided facial pain and swelling over the past 24 hours. Vitals and exam as above. Fortunately she is protecting her airway swelling is limited to the right maxillary/preauricular region,
infraorbital region and along the right mandible but intraorally she has no appreciable swelling. Plan to check basic labs, CT face. Reassess after the above.
Labs reviewed: CBC shows mild leukocytosis. CMP no clinically significant abnormalities. CT the facial bones shows findings consistent with cellulitis along the right mandible also likely some mild sialoadenitis right submandibular region. No
signs of abscess. Patient remains awake and alert, stable without any worsening swelling on ED observation. I think she is a reasonable candidate for a trial of oral antibiotics and discharge home. She feels comfortable with this plan. She is
due for a routine breathing treatment and so we will provide this as well as initial dose of antibiotics prior to discharge. Spoke about follow-up plan and return precautions and all questions answered.
*Pulse Oximetry
SaO2: 2
Nasal Cannula flow liters per minute: 2
Patient hypoxic: no (97% on her normal 2 L of home oxygen)
*Critical Care Note
Total Time (30-74mins, 75-104mins- exclusive of procedures): Not Applicable
Data Reviewed
Source: patient and records
ED Attending Note
-
Portions of this chart may have been created with voice recognition software.� Occasional wrong word or��sound alike� substitutions may have occurred due to the inherent limitations of voice recognition software.
Discharge Plan
Departure
Discharge Problem:
Sialoadenitis, Cellulitis
Prescriptions:
No Action
propranolol 10 MG tablet
10 mg PO BID
simvastatin 20 MG tablet
20 mg PO DAILY
metformin 1,000 MG tablet
1,000 mg PO BID@0800,1700 Qty: 120 0RF
insulin aspart U-100 [Novolog FlexPen U-100 Insulin] 300 UNITS/3 ML insulin pen
2 - 11 sliding scale dose SC ACHS
albuterol sulfate 1 PUFF HFA aerosol inhaler
2 puff inhalation R Q4HPRN PRN (Reason: SOB)
aspirin 81 MG tablet,delayed release (DR/EC)
81 mg PO DAILY
roflumilast [Daliresp] 500 mcg Tablet
500 mcg PO DAILY Qty: 30 0RF
budesonide 0.5 mg/2 mL Suspension For Nebulization
0.5 mg inhalation R BID Qty: 0 0RF
ipratropium-albuterol 0.5 mg-3 mg(2.5 mg base)/3 mL solution for nebulization
3 ml INHALATION R QID
fentanyl 12 mcg/hr patch 72 hour
1 patch topical Q72H
oxycodone-acetaminophen 5-325 mg tablet
1 tab PO Q6HPRN PRN (Reason: moderate pain)
furosemide 20 mg tablet
20 mg PO DAILY
lisinopril 10 MG tablet
10 mg PO DAILY
azithromycin 250 mg tablet
500 mg PO MOWEFR
magnesium oxide 500 mg magnesium Tablet
500 mg PO DAILY Qty: 30 5RF
doxycycline hyclate 100 mg Capsule
100 mg PO Q12 Qty: 20 0RF
cefuroxime axetil 500 mg tablet
500 mg PO BID 7 Days Qty: 14 0RF
prednisone 10 mg tablet
10 mg PO DIRECTED Qty: 90 0RF
Rx Instructions:
4 daily x 4 days, then 3 daily x 4 days, then 2 daily until seen by pulmonary
Referrals:
Amanda Corral DO [Family Provider, Family Practice]
Interventions
Interventions:
*Risk Screen - Suicide Last Done: 06/06/25 16:02
*General Assessment Last Done: 06/06/25 16:02
*Neglect/Abuse Screening Last Done: 06/06/25 16:02
*ED COVID-19 Vaccine History Last Done: 06/06/25 16:02
ED- Neurological Assessment Last Done: 06/06/25 16:42
ED-Skin Assessment Last Done: 06/06/25 16:42
Discharge Date and Time
Print Language: COMORAN
[2025-06-06 17:42] LABS: ALT (SGPT) 37 U/L (0-35); AST (SGOT) 28 U/L (14-36); Albumin 4.4 g/dl (3.5-5.0); Alkaline Phosphatase 62 U/L (38-126); Blood Urea Nitrogen 12 mg/dl (7-17); Calcium 9.8 mg/dl (8.4-10.2); Carbon Dioxide 30 mmol/L (22-30); Chloride 98 mmol/L (98-107); Estimated Creatinine Clearance 82 ml/min; Glucose 169 mg/dl (70-99); Potassium 4.4 mmol/L (3.5-5.1); Sodium 134 mmol/L (135-145); Total Protein 6.5 g/dl (6.3-8.2); eGFR > 60.00
[2025-06-06 19:02] VITALS: BP 135/81
[2025-06-06 20:00] VITALS: BP 129/81
[2025-06-06] MEDS: CLEOCIN 450 MG PO (20:09)
[2025-06-06] MEDS: DUONEB 3 ML INH (20:10)
== END 2025-06-06 20:37 | disposition home or self-care (01) ==
LOC: EMR 15:58
PROVIDERS: EMERGENCY PHYSICIAN Emergency Medicine; FAMILY PHYSICIAN Family Medicine
DX: K11.20 Sialoadenitis, unspecified (principal); L03.211 Cellulitis of face; R00.0 Tachycardia, unspecified; E11.9 Type 2 diabetes mellitus without complications; E78.00 Pure hypercholesterolemia, unspecified; I10 Essential (primary) hypertension; J44.9 Chronic obstructive pulmonary disease, unspecified; M06.9 Rheumatoid arthritis, unspecified; Z79.4 Long term (current) use of insulin; Z87.891 Personal history of nicotine dependence; Z90.49 Acquired absence of other specified parts of digestive tract
CPT/HCPCS: 94640; 99284; 70487; 80053; 82962; 85025; Q9967

== ENCOUNTER 2025-07-13 08:40 | Inpatient (IN) | payer MEDICARE, OTHER, SELFPAY ==
[2025-07-12 16:53] VITALS: BP 135/81
[2025-07-12 17:32] VITALS: BMI 41.2
[2025-07-12 17:35] LABS: Hematocrit 41.7 % (37.0-47.0); Hemoglobin 14.2 g/dL (12.0-16.0); Mean Corp Hgb Conc. 34.1 g/dL (33.0-37.0); Mean Corpuscular Volume 90.5 fL (81.0-99.0); Nucleated Red Blood Cells % 0.3 %; Platelet Count 225 10^3/uL (130-400); Red Cell Dist. Width 13.1 % (11.5-14.5)
[2025-07-12 17:58] LABS: ALT (SGPT) 27 U/L (0-35); AST (SGOT) 23 U/L (14-36); Albumin 4.6 g/dl (3.5-5.0); Alkaline Phosphatase 62 U/L (38-126); Blood Urea Nitrogen 11 mg/dl (7-17); Calcium 9.3 mg/dl (8.4-10.2); Carbon Dioxide 29 mmol/L (22-30); Chloride 99 mmol/L (98-107); Estimated Creatinine Clearance 95 ml/min; Glucose 141 mg/dl (70-99); Potassium 4.4 mmol/L (3.5-5.1); Sodium 135 mmol/L (135-145); Total Protein 6.7 g/dl (6.3-8.2); eGFR > 60.00
[2025-07-12 17:59] LABS: Troponin I < 0.012 ng/ml
[2025-07-12 18:00] VITALS: BP 124/80
[2025-07-12] MEDS: DECADRON 10 MG IV (18:29)
[2025-07-12] MEDS: DUONEB 3 ML INH (18:29)
--- NOTE | 2025-07-12 19:06 | ED.GENMED ---
History of Present Illness
General
Chief Complaint: Breathing Problem
Source: patient
Exam Limitations: none
Time Seen by Provider: 07/12/25 17:26
Nursing documentation reviewed up to this point in time: agreed with
History of Present Illness
History of Present Illness:
70-year-old female COPD chronic oxygen 2 to 3 L multiple nebs and inhalers, chronically on p.o. steroids which were increased recently 2 to 3 days of increased fatigue cough productive sputum leg edema, no fevers no hemoptysis, decrease with
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
Past History
Past History
ED Past Medical History: COPD, HTN, Hypercholesterolemia, IDDM and Other (Rheumatoid arthritis, osteoporosis, cataracts)
ED Past Surgical History: Cholecystectomy, Gynecological (Partial hysterectomy) and Urological (Bladder sling)
Social History
Tobacco: Former smoker
Alcohol: None
Drug: None
Personal:
Living: alone (Her son keeps an eye on her)
Phy Exam
Physical Exam
Physical Exam:
Physical Exam
General: Cushingoid 70-year-old female cough
Neck: No jaundice
Heart: s1/s2 regular rate and rhythm, no murmur. equal radial pulses.
Lungs: Wheezing bilaterally with
Abdomen: Nontender
Neuro: alert and oriented. no focal neurological deficits
Skin: no rash
Psychiatric: well kept. interactive and cooperative
Extremities: no edema.
Course
Orders/Labs/Results
Orders:
Orders
07/12/25 16:51
Electrocardiogram (*1) Urgent
Reason for Study: Shortness of Breath
EKG- Treatment ONCE
07/12/25 17:29
Complete Blood Count/With Diff Urgent
Comprehensive Metabolic Panel Urgent
NT-proBNP Urgent
Troponin I Urgent
07/12/25 18:15
Sputum Culture [Respiratory Culture/Gram Stain] Urgent
JAIME Source: Sputum
Specimen Description:
Dexamethasone Sod Phosphate [Decadron] 10 mg IV NOW STA
Ipratropium/Albuterol Sulfate [Duoneb] 3 ml INH R NOW STA
Abnormal Lab Results
07/12/25
17:29
WBC 13.7 H 10^3/uL
(4.8-10.8)
Abs Immat Gran (auto) 0.2 H 10^3/uL
(0-0.05)
Absolute Neuts (auto) 9.2 H 10^3/uL
(1.4-6.5)
Absolute Monos (auto) 0.9 H 10^3/uL
(0.1-0.6)
Immature Gran % 1.6 H %
(0-0.5)
Glucose 141 H mg/dl
(70-99)
07/12/25 17:29
07/12/25 17:29
Vital Signs
Initial and Last Documented VS:
Initial Vital Signs
Temp Pulse Resp BP Pulse Ox
97.9 F 110 20 135/81 97
07/12/25 16:53 07/12/25 16:53 07/12/25 16:53 07/12/25 16:53 07/12/25 16:53
Last Documented Vital Signs
Temp Pulse Resp BP Pulse Ox
98.4 F 112 18 135/81 99
07/12/25 17:00 07/12/25 17:30 07/12/25 17:30 07/12/25 16:53 07/12/25 19:08
MDM/Problems Addressed
Differential Diagnosis Includes:
COPD pneumonia heart failure bronchitis doubt pneumothorax
MDM/Problems Addressed:
Cough shortness of breath
Chronic conditions affecting care:
COPD CHF
Acute Exacerbation and/or Progression of Chronic Illness:
COPD CHF
*Radiology
Radiology exam reviewed: preliminary read by ED provider
*Pulse Oximetry
SaO2: 99
Oxygen Mode of Delivery: Simple mask
Patient hypoxic: no
*EKG
Interpreted by ED Provider?: Yes
Interpretation: abnormal
Comparison EKG: no comparison EKG present
Heart Rate: 78
Rate: normal
Rhythm: sinus
Ischemia: non-specific ST changes
*Veterinary Microbiologist Interpretation
Rate: normal
Interpretation: normal
Heart Rate: 78
Rhythm: sinus
*Critical Care Note
Total Time (30-74mins, 75-104mins- exclusive of procedures): Not Applicable
Data Reviewed
Source: patient
Prescriptions/Medications Considered But Not Given:
Magnesium
Further Testing Considered But Not Given:
Chest CT
Update Note
Update Note:
Update patient with tenuous respiratory status already on fairly maximal outpatient COPD treatments, likely will require admission for close monitoring frequent neb treatments IV steroids,
ED Attending Note
-
Portions of this chart may have been created with voice recognition software.� Occasional wrong word or��sound alike� substitutions may have occurred due to the inherent limitations of voice recognition software.
Discharge Plan
Departure
Prescriptions:
No Action
propranolol 10 MG tablet
10 mg PO BID
simvastatin 20 MG tablet
20 mg PO DAILY
metformin 1,000 MG tablet
1,000 mg PO BID@0800,1700 Qty: 120 0RF
insulin aspart U-100 [Novolog FlexPen U-100 Insulin] 300 UNITS/3 ML insulin pen
2 - 11 sliding scale dose SC ACHS
albuterol sulfate 1 PUFF HFA aerosol inhaler
2 puff inhalation R Q4HPRN PRN (Reason: SOB)
aspirin 81 MG tablet,delayed release (DR/EC)
81 mg PO DAILY
roflumilast [Daliresp] 500 mcg Tablet
500 mcg PO DAILY Qty: 30 0RF
budesonide 0.5 mg/2 mL Suspension For Nebulization
0.5 mg inhalation R BID Qty: 0 0RF
ipratropium-albuterol 0.5 mg-3 mg(2.5 mg base)/3 mL solution for nebulization
3 ml INHALATION R QID
fentanyl 12 mcg/hr patch 72 hour
1 patch topical Q72H
oxycodone-acetaminophen 5-325 mg tablet
1 tab PO Q6HPRN PRN (Reason: moderate pain)
furosemide 20 mg tablet
20 mg PO DAILY
lisinopril 10 MG tablet
10 mg PO DAILY
azithromycin 250 mg tablet
500 mg PO MOWEFR
magnesium oxide 500 mg magnesium Tablet
500 mg PO DAILY Qty: 30 5RF
doxycycline hyclate 100 mg Capsule
100 mg PO Q12 Qty: 20 0RF
cefuroxime axetil 500 mg tablet
500 mg PO BID 7 Days Qty: 14 0RF
prednisone 10 mg tablet
10 mg PO DIRECTED Qty: 90 0RF
Rx Instructions:
4 daily x 4 days, then 3 daily x 4 days, then 2 daily until seen by pulmonary
clindamycin HCl [Cleocin HCl] 150 mg capsule
450 mg PO TID 7 Days Qty: 63 0RF
Referrals:
Amanda Corral DO [Family Provider, Family Practice]
Interventions
Interventions:
*General Assessment Last Done: 07/12/25 16:53
*Neglect/Abuse Screening Last Done: 07/12/25 17:34
*ED COVID-19 Vaccine History Last Done: 07/12/25 17:34
*ED Influenza Vaccine History Last Done: 07/12/25 17:34
Discharge Date and Time
Print Language: UGANDAN
--- NOTE | 2025-07-12 19:45 | HPS.HSE ---
Family Physician
-
Family Physician: Amanda Corral
Chief Complaint
-
Shortness of breath
History of Present Illness
70-year-old female with past medical history significant for COPD on home O2 2 to 3 L and on chronic steroids and azithromycin, insulin-dependent diabetes, chronic opiate use, CHF of unknown type, hyperlipidemia, rheumatoid arthritis and morbid
obesity who presents to the emergency department with increasing dyspnea on exertion and shortness of breath despite uptitration of her home regimen.
Patient reported that symptoms got worse about 5 days ago. She reports some upper respiratory and throat discomfort and tearing chest tightening. She reports increased cough that is productive of increased amount of phlegm. She reports increasing
dyspnea on exertion and shortness of breath. She also reports chest tightness Pain. She reports that she could not even walk across the room without feeling short of breath. She reports trace ankle swelling but denies any calf tenderness. She
denies any prior history of pulmonary embolism.
She denies having any fevers or chills. She has no known sick contact.
In the emergency department she was afebrile, blood pressure was 135/88 with a pulse rate of 112 when she was satting 98%. ECG showed sinus tachycardia at rate of 110 with PVCs. Troponin was negative. BNP was negative.
WBC was 7.7 hemoglobin and platelets were normal. Electrolytes BUN and creatinine were normal. Chest x-ray shows no acute infiltrates, consolidation, edema or effusion or pneumothorax.
Medical History
Past Medical History
Past Medical History: Reports Other
Additional Past Medical History:
Stage IV COPD
Chronic Hypoxic Respiratory Failure secondary to COPD
Chronic CHF, unknown type
Essential Hypertension
Diabetes Mellitus, Type II
Chronic Tremors
Chronic Opioid Use with Dependence
Morbid Obesity due to Excess Calories
Past Surgical History: Reports Cholecystectomy and Gynocological
Social History
Tobacco: Former Smoker
Alcohol: None
Drug: None
Living: Alone
Family History
Family History: Not pertinent
Allergies / Home Medications
Allergies reflects when Allergies were last updated in [employer].
Home Medications with original date entered in [employer]
Allergy/Medication List:
Allergies
Allergy/AdvReac Type Severity Reaction Status Date / Time
Penicillins Allergy tongue Verified 07/12/25 16:53
swelling
as a child
Home Medications
propranolol 10 mg tablet 10 mg PO BID tremors 09/18/17
simvastatin 20 mg tablet 20 mg PO DAILY High cholesterol 09/18/17
metformin 1,000 mg tablet 1,000 mg PO BID@0800,1700 ##120 09/10/18
insulin aspart U-100 100 unit/mL (3 mL) subcutaneous pen (Novolog FlexPen U-100 Insulin aspart) 2 - 11 sliding scale dose SC ACHS Diabetes 11/19/18
albuterol sulfate 90 mcg/actuation aerosol inhaler 2 puff inhalation R Q4HPRN PRN SOB 06/21/19
aspirin 81 mg tablet,delayed release 81 mg PO DAILY Blood pressure 06/21/19
budesonide 0.5 mg/2 mL suspension for nebulization 0.5 mg (2 mL) inhalation R BID #0 mL 04/27/22
roflumilast 500 mcg tablet (Daliresp) 500 mcg PO DAILY Anti-inflammatory #30 tabs 04/27/22
fentanyl 12 mcg/hr transdermal patch 1 patch topical Q72H Pain 09/08/22
ipratropium 0.5 mg-albuterol 3 mg (2.5 mg base)/3 mL nebulization soln 3 ml inhalation R QID Lung/breathing issues 09/08/22
furosemide 20 mg tablet 20 mg PO DAILY Fluid retention/Swelling 09/13/22
oxycodone-acetaminophen 5 mg-325 mg tablet 1 tab PO Q6HPRN PRN moderate pain 09/13/22
lisinopril 10 mg tablet 10 mg PO DAILY Blood pressure 09/14/22
azithromycin 250 mg tablet 500 mg PO MOWEFR Infection 06/27/24
cefuroxime axetil 500 mg tablet 500 mg PO BID 7 days #14 tabs 07/02/24
doxycycline hyclate 100 mg capsule 100 mg PO Q12 #20 caps 07/02/24
magnesium oxide 500 mg PO DAILY #30 tabs 07/02/24
prednisone 10 mg tablet 10 mg PO DIRECTED #90 tabs 07/02/24
clindamycin HCl 150 mg capsule (Cleocin HCl) 450 mg (3 x 150 mg) PO TID 7 days #63 caps 06/06/25
Review of Systems
-
History Source: Patient
A 12 point ROS was completed and negative except as noted: Yes
Constitutional: Reports No Symptoms
EENT: Reports No Symptoms
Respiratory: Reports Cough and Trouble Breathing
Cardiac: Denies Chest Pain or Palpitations
Abdomen/GI: Denies Abdominal Pain, Nausea, Vomiting, Diarrhea or Constipated
: Reports No Symptoms
Musculoskeletal: Reports No Symptoms
Skin: Reports No Symptoms
Neurological: Reports No Symptoms
Endocrine: Reports No Symptoms
Hematologic/Lymphatic: Reports No Symptoms
Psych: Reports No Symptoms
Physical Exam
Vital Signs
Vital Signs
Temp Pulse Resp BP Pulse Ox
98.4 F 112 18 135/81 99
07/12/25 17:00 07/12/25 17:30 07/12/25 17:30 07/12/25 16:53 07/12/25 19:08
Physical Exam
General: Well Developed, Well Nourished and No Apparent Distress
HEENT: NormoCephalic, Anicteric, Moist mucous membranes, Atraumatic and Other (Prominent neck swelling/jawline swelling); No Thrush
Respiratory: Wheezes (Faint throughout ) and Non Labored Respirations
Cardiac: S1/S2 and Tachycardia; No Murmur
GI: Soft, Non Tender, Non Distended and Normal Bowel Sounds
Rectal: Deferred by Provider
Musculoskeletal: No Clubbing, No Cyanosis and No Edema
Skin: Warm and Dry; No Rash
Neuro: Awake, Alert, Oriented and Nonfocal/grossly intact
Psych: Calm
Laboratory Results
-
07/12/25 17:
07/12/25 17:
Laboratory Results
Total Bilirubin 0.6 mg/dl (0.2-1.3) 07/12/25 17:
AST 23 U/L (14-36) 07/12/25 17:
ALT 27 U/L (0-35) 07/12/25 17:
Alkaline Phosphatase 62 U/L (38-126) 07/12/25 17:
Troponin I < 0.012 ng/ml 07/12/25:
Data Reviewed
-
Diagnostic Radiology: Image Personally Visualized and interpreted
Medical Tests (Nuc Med, Echo, EKG etc): Image Personally Visualized and interpreted
Lab Data: Labs Reviewed by me
Old Records: Reviewed
Impression/Plan
-
IMPRESSION:
70-year-old with history of advanced COPD on 2 L home O2, on chronic prednisone and azithromycin suppression, chronic pain, diabetes on sliding scale insulin, obesity recent admission for parotid infection who presents to the emergency department
with from upper respiratory symptoms increased cough, shortness of breath and dyspnea on exertion. X-ray shows no acute infiltrate. ECG is nonischemic and she has negative troponin. BNP is negative. Suspect acute viral upper respiratory
infection with slight worsening of COPD. She is satting 99% at rest on 2 L. However she feels with any exertion she has severe dyspnea and cannot catch her breath. No prior history of PE
PLAN:
Shortness of breath -COPD exacerbation suspected
-Admit to MedSurg observation
-Check D-dimer
-IV Solu-Medrol 40 mg every 12 for now
-Continue DuoNebs [id number]
-No indication for IV antibiotic
-Check COVID and flu
-Continue long-acting inhalers, budesonide Roflumilast azithromycin
-Pulmonary consultation
Diabetes
-Continue metformin 1 g twice daily
� Sliding scale insulin
Hypertension/CHF�no evidence of CHF exacerbation at this time
� Continue furosemide 20 mg daily
� Continue lisinopril and propranolol
Chronic pain�
�Continue morphine 50 mg every 12 hours
Percocet every 6 hours as needed, patient is of fentanyl patch
DVT prophylaxis Lovenox subcu
CODE STATUS full code
[2025-07-12 20:37] LABS: COVID-19 Antigen Negative (Negative)
[2025-07-12 20:39] LABS: D-Dimer 0.45 ug/mlFEU (0.00-0.50)
[2025-07-12 21:00] VITALS: BP 145/88
[2025-07-12] MEDS: PERCOCET 5/325 1 TABLET PO (21:51)
[2025-07-12 23:00] LABS: Glucose - Point of Care 175 mg/dl (70-99)
[2025-07-12 23:22] VITALS: BMI 40.7
[2025-07-12 23:30] VITALS: BP 180/80
[2025-07-12] MEDS: MS CONTIN (EXTENDED RELEASE) 15 MG PO (23:58)
[2025-07-12] MEDS: TYLENOL 500 MG PO (23:59)
--- NOTE | 2025-07-13 | PTCARENOTE ---
Pt arrived to unit from ED via stretcher. Ambulated to bed with standby assist of 1 with a rolling walker. 2L of O2 maintained. BP of 180/80 on admission. Pt complaining of 9/10 headache. LAVONNE Schroeder notified. Advised to give scheduled
morphine and PRN tylenol for pain and reassess BP. Plan of care ongoing.
[2025-07-13] MEDS: DUONEB 3 ML INH ×5 (00:09→19:39)
[2025-07-13 01:10] VITALS: BP 123/72
--- NOTE | 2025-07-13 01:15 | PTCARENOTE ---
Repeat blood pressure 123/72. No complaints of pain at this time. Plan of care ongoing.
[2025-07-13 05:55] VITALS: BMI 40.6
[2025-07-13] MEDS: SOLU-MEDROL PF 40 MG IV ×2 (06:02→17:34)
[2025-07-13] MEDS: PERCOCET 5/325 1 TABLET PO ×2 (06:09→14:38)
[2025-07-13 07:24] VITALS: BP 165/98
[2025-07-13 07:44] LABS: Venous Blood Gas B.E. 6.5 mmol/L (-4 to +4); Venous Blood Gas O2 Sat % 77.0 %
[2025-07-13 07:56] LABS: Glucose - Point of Care 169 mg/dl (70-99)
[2025-07-13] MEDS: DALIRESP 500 MCG PO (08:04)
[2025-07-13 08:05] LABS: Hematocrit 40.1 % (37.0-47.0); Hemoglobin 13.3 g/dL (12.0-16.0); Mean Corp Hgb Conc. 33.2 g/dL (33.0-37.0); Mean Corpuscular Volume 90.1 fL (81.0-99.0); Platelet Count 193 10^3/uL (130-400); Red Cell Dist. Width 13.2 % (11.5-14.5)
[2025-07-13] MEDS: GLUCOPHAGE 1000 MG PO ×2 (08:05→17:33)
[2025-07-13] MEDS: ASPIR LOW (ENTERIC COATED) 81 MG PO (08:05)
[2025-07-13] MEDS: INDERAL 10 MG PO ×2 (08:05→21:01)
[2025-07-13] MEDS: PULMICORT 0.5 MG INH ×2 (08:05→19:39)
[2025-07-13] MEDS: LASIX 20 MG PO (08:05)
[2025-07-13] MEDS: ZESTRIL 10 MG PO (08:06)
[2025-07-13 08:42] LABS: Blood Urea Nitrogen 13 mg/dl (7-17); Calcium 9.3 mg/dl (8.4-10.2); Carbon Dioxide 31 mmol/L (22-30); Chloride 96 mmol/L (98-107); Estimated Creatinine Clearance 95 ml/min; Glucose 192 mg/dl (70-99); Potassium 4.1 mmol/L (3.5-5.1); Sodium 133 mmol/L (135-145); eGFR > 60.00
[2025-07-13] MEDS: MS CONTIN (EXTENDED RELEASE) 15 MG PO ×2 (09:26→22:29)
[2025-07-13] MEDS: NOVOLOG FLEXPEN-LOW RESISTANCE 1 UNITS SC (09:33)
[2025-07-13 09:34] LABS: Glucose - Point of Care 198 mg/dl (70-99)
--- NOTE | 2025-07-13 10:35 | CM ---
Patient seen at bedside on . Patient states that she does not have VN services current but does have caregivers for 4 hours daily 7 days week. Patient has a concentrator up to 6 and has an innogen for when she is moving around. Patient stated
that her apartment is 4 steps down but she does not go out normally. Patient states that she is on a mission; to live long enough for her grandchildren to grow up and give her grandson her car when it is paid off. Patient was on Hospice at one time
but does not want to have hospice at this time. Patient does not want to go to SNF but is willing to work with therapy. CM reviewed OBS form and patient completed form, signed form placed on chart. CM will continue to follow for discharge planning
needs.
Plan; home with VN vs SNF; watch for therapy recommendations
--- NOTE | 2025-07-13 10:39 | W.PN.HOSP.TC ---
Today's Communication/Plan
-
Continue with nebulizers and steroids. Add oral doxycycline.
Consult pulmonary.
Assessment / Plan
Assessment / Plan
IMPRESSION:
70-year-old with history of advanced COPD on 2 L home O2, on chronic prednisone and azithromycin suppression, chronic pain, diabetes on sliding scale insulin, obesity recent admission for parotid infection who presents to the emergency department
with from upper respiratory symptoms increased cough, shortness of breath and dyspnea on exertion. X-ray shows no acute infiltrate. ECG is nonischemic and she has negative troponin. BNP is negative. Suspect acute viral upper respiratory
infection with slight worsening of COPD. She is satting 99% at rest on 2 L. However she feels with any exertion she has severe dyspnea and cannot catch her breath. No prior history of PE
PLAN:
Shortness of breath -COPD exacerbation suspected
-Still symptomatic with shortness of breath and wheezing. Admit to inpatient service.
-Continue IV Solu-Medrol 40 mg every 12
-Continue DuoNebs [id number]
-Added doxycycline. Hold her chronic Zithromax while in the hospital.
- Negative COVID and flu. Chest x-ray shows no evidence of obvious pneumonia
-Continue long-acting inhalers, budesonide Roflumilast
-Pulmonary consultation
Diabetes
-Continue metformin 1 g twice daily
� Sliding scale insulin
Hypertension/CHF�no evidence of CHF exacerbation at this time
� Continue furosemide 20 mg daily
� Continue lisinopril and propranolol
Chronic pain�
�Continue morphine 50 mg every 12 hours
Percocet every 6 hours as needed, patient is of fentanyl patch
DVT prophylaxis Lovenox subcu
CODE STATUS full code
Anticipated Discharge: 24 - 48 hours
Subjective/Interval History
-
Date of Service: July 13, 2025
Patient still with shortness of breath. She has a cough but minimal productive phlegm. She was feeling at heart to bring up the phlegm. She was trying to do chest therapy herself at home.
Longstanding history of COPD on home O2. She says her wire steward increased the baseline prednisone to 20 mg 3 months ago and increase the nebulizer to every 4 hours.
No fever or chills. No chest pain. No nausea vomiting.
Objective Data
-
Labs:
Laboratory Results
07/13/25
07:23
WBC 11.2 H
Hgb 13.3
Hct 40.1
Plt Count 193
Sodium 133 L
Potassium 4.1
Chloride 96 L
Carbon Dioxide 31 H
BUN 13
Creatinine 0.6
Glucose 192 H
Calcium 9.3
Vital Signs:
Vital Signs
Temp Pulse Resp BP Pulse Ox
98.2 F 112 22 165/98 95
07/13/25 07:24 07/13/25 08:11 07/13/25 08:11 07/13/25 08:06 07/13/25 10:04
I&O
07/12/25 07/13/25 07/14/25
06:59 06:59 06:59
Intake Total 240 / 240
Balance 240 / 240
Physical Exam
-
General: Negative Respiratory Distress
Respiratory: Wheezes (Bilateral plus decreased breath sounds in general) and Non Labored Respirations; Negative Crackles or Accessory Resp Muscle Use
Neuro: AO x 3
Psych: Calm; Negative Confused
Data Reviewed
-
Labs: Labs Reviewed by me
--- NOTE | 2025-07-13 10:44 | CON.PUL ---
Consultation
Consultation Request
Date/Time Consultation Requested: 07/13/2025
Date/Time Consultation Performed: 07/13/2025
Requesting Provider: Dr. Uriarte
Performing Provider: Dr. Pawan Funk
Reason for Consultation: Acute exacerbation of COPD
Medical History
-
History of Present Illness:
70-year-old woman with history of stage IV COPD, on chronic oxygen therapy, type 2 diabetes, hypertension, heart failure, former smoker who came to the emergency room for evaluation on 07/12/2025 complaining of 5 days of worsening respiratory
symptoms. Chest tightness, upper respiratory symptoms, throat discomfort.
Cough with increased phlegm production. No hemoptysis. Worsening shortness of breath.
Very limited at home which usually she is able to ambulate around her home without shortness of breath. Denies fevers or chills.
Denies any sick contacts.
-
Upon arrival to the emergency room she was slightly tachycardic. Pulse ox was 98%. Negative cardiac biomarkers.
Chest x-ray showed no acute infiltrates.
We were consulted on 07/13/2025 for evaluation.
-
Usually follows up with Dr. Caraballo last time seen was 02/27/2025 records reviewed.
Patient had Achilles tendinitis with Levaquin.
In February she was provided with a prolonged prednisone taper due to ongoing symptoms.
Chronically on oxygen supplementation 4-6 L.
Chronically on nebulizer therapy. DuoNebs/budesonide.
Chest x-ray on admission showed no acute abnormalities in the emergency room.
10 mg of prednisone daily and low-dose azithromycin for anti-inflammatory therapy. She also remains on the Eliquis.
Previous sleep study negative.
Patient has an asthmatic component -- Dupixent discontinue as the patient developed pancytopenia.
-
Quit smoking in November 2018.
It is noted that the patient has a growing small lung nodule-per records would not want further evaluation for this as she would not tolerate therapeutics for diagnostic due to underlying lung disease.
-
Hospice was discussed during last visit patient was not ready for it.
[facility] but BMI was too high to be considered for any advanced procedures.
Past Medical History
Past Medical History: Other (See assessment and plan section)
Social History
Tobacco: Former Smoker (17-sooa-yllb history, quit in 2019)
Alcohol: None
Drug: None
Living: Alone
Family History
Family History: Reviewed & Not Pertinent
Allergies / Home Medications
Allergies
Allergy/AdvReac Type Severity Reaction Status Date / Time
Penicillins Allergy tongue Verified 07/12/25 16:53
swelling
as a child
dupilumab (From Dupixent Pen) AdvReac Unknown Verified 07/12/25 23:20
Home Medications
�Medication �Instructions �Recorded �Confirmed �Last Taken �Type
propranolol 10 mg tablet 10 mg PO BID tremors 09/18/17 07/12/25 07/12/25 History
simvastatin 20 mg tablet 20 mg PO QPM High cholesterol 09/18/17 07/12/25 07/11/25 History
metformin 1,000 mg tablet 1,000 mg PO BID@0800,1700 ##120 09/10/18 07/12/25 07/12/25 Rx
insulin aspart U-100 100 unit/mL 2 - 11 sliding scale dose SC ACHS 11/19/18 07/12/25 07/12/25 History
(3 mL) subcutaneous pen (Novolog Diabetes
FlexPen U-100 Insulin aspart)
albuterol sulfate 90 mcg/actuation 2 puff inhalation R Q4HPRN PRN SOB 06/21/19 07/12/25 04/23/22 History
aerosol inhaler
aspirin 81 mg tablet,delayed 81 mg PO DAILY Blood pressure 06/21/19 07/12/25 07/12/25 History
release
budesonide 0.5 mg/2 mL suspension 0.5 mg (2 mL) inhalation R BID #0 04/27/22 07/12/25 07/12/25 Rx
for nebulization mL
roflumilast 500 mcg tablet 500 mcg PO DAILY Anti-inflammatory 04/27/22 07/12/25 07/12/25 Rx
(Daliresp) #30 tabs
ipratropium 0.5 mg-albuterol 3 mg 3 ml inhalation R QID 09/08/22 07/12/25 07/12/25 History
(2.5 mg base)/3 mL nebulization Lung/breathing issues
soln
furosemide 20 mg tablet 20 mg PO DAILY Fluid 09/13/22 07/12/25 07/12/25 History
retention/Swelling
oxycodone-acetaminophen 5 mg-325 1 tab PO QID 09/13/22 07/12/25 07/12/25 History
mg tablet
lisinopril 10 mg tablet 10 mg PO DAILY Blood pressure 09/14/22 07/12/25 07/12/25 History
azithromycin 250 mg tablet 500 mg PO MOWEFR Infection 06/27/24 07/12/25 07/12/25 History
ibuprofen 200 mg tablet (Advil) 200 mg PO Q6HPRN PRN mild pain 07/12/25 07/12/25 3 Days Ago History
~07/09/25
loperamide 2 mg tablet 2 mg PO BIDPRN PRN diarrhea 07/12/25 07/12/25 Unknown History
morphine 15 mg tablet,extended 15 mg PO Q12H 07/12/25 07/12/25 07/12/25 History
release
prednisone 10 mg tablet 10 mg PO BID 07/12/25 07/12/25 07/12/25 History
Review of Systems
Vitals / Labs / Diagnostic Testing
Vital Signs
Temp Pulse Resp BP Pulse Ox
98.2 F 112 22 165/98 95
07/13/25 07:24 07/13/25 08:11 07/13/25 08:11 07/13/25 08:06 07/13/25 10:04
Lab Data
07/13/25 07:23
07/13/25 07:23
Microbiology
07/12/25 21:12 Sputum Gram Stain - Preliminary
07/12/25 20:15 Nasal Swab Influenza Types A & B (ANGIE) - Final
Negative for Influenza A & B, NAAT
Negative results must be combined with clinical observations
and patient history.
Nucleic Acid Amplification test (NAAT)performed on the
Confer platform.
Diagnostic Testing:
Assessment
-
70-year-old woman with history of advanced COPD, chronic hypoxemic and hypercapnic respiratory failure-minimal effort dyspnea at baseline. Admitted with 5-day history of increased cough, phlegm production and shortness of breath. Chest x-ray clear
in the emergency room. We were consulted for evaluation of her advanced COPD with acute decompensation on 07/13/2025.
Impression:
Acute exacerbation COPD/asthma overlap-likely tracheobronchitis.
Patient has advanced COPD with minimal effort dyspnea at baseline. Hospice has been contemplated.
Chest x-ray 07/12/2024 is clear.
Negative cardiac biomarkers
Negative influenza
Negative COVID
Negative D-dimer
Chronic hypoxemic/hypercapnic respiratory failure-suspect compensated.
VBG 07/13/2025: 7.35/62/44
---
Condition present prior admission
Acute exacerbation June 2024 requiring hospitalization due to tracheobronchitis.
Known h/o stage IV COPD, on home O2 2LPM, albuterol HFA, azithromycin 500 mg MWF, budesonide, DNs, prednisone 10 mg BID, roflumilast. Previously on palliative care, which she discontinued herself.
Stanislaw 02/2025- FEV1 0.75L 20%, FVC 1.53L 29%0
AB.4/49/64-room air-08/2018
93-ixnm-csao smoker- quit 2018
Left lower lobe lung nodule: Enlarging. Patient declined any further evaluation.
-
Borderline low level of IgG 10/21/2017-subclasses were normal
Emphysema on CT
4 mm lung nodule new compared to prior left lower lobe on CAT scan 02/19/2024
COPD exacerbations 08/2018, 11/22/18, 12/08/18, 12/30/2018, April 2022
Heart failure with with preserved ejection fraction
Echocardiogram 05/29/2023: Poor visualization. Normal LVEF. No significant valvular abnormalities.
Hypertension
Hyperlipidemia
Type 2 diabetes
Cholecystectomy Aug 2018
Rheumatoid arthritis on chronic methotrexate
GERD
Family history of hepatitis C (Brother), prostate cancer (Brother), COPD (mother), lung cancer (father)
Chronic back pain, on disability. S/P vertebroplasty. Recurrent Compression fractures-T4, 5-noted on low-dose CT chest 07/2018
Obesity
Snoring: Most Recent sleep study without obstructive sleep apnea.
Deconditioning
Former smoker
Assessment and plan:
-
Unfortunately this patient has advanced COPD/asthma overlap-significant emphysema on CAT scan. Progressive shortness of breath over the years.
Steroid-dependent.
Very limited due to progressive pulmonary disease.
Multiple exacerbations-despite maximal medical therapy. Recently the last 3 months prednisone has been adjusted despite that continues to have significant symptoms.
-
This time with an acute exacerbation likely due to acute tracheobronchitis. This is despite maximal medical therapy.
Expiratory wheezing with prolonged expiratory phase. Minimal effort dyspnea.
-
Continue nebulizer therapy Pulmicort/DuoNebs [id number]
Agree with 5 days of doxycycline
Sputum culture sent and pending
Will restart low-dose macrolide therapy after completing 5 days of doxycycline
IV methylprednisolone continues for now at the current dose.
Continue Roflumilast
Noted the Dupixent has been discontinued due to pancytopenia in the past. May need to consider other biologic if clinically appropriate in the outpatient setting.
Weight loss may be beneficial-unclear whether this patient will qualify for GLP-1 agonist.
-
Other triggers in her case include obesity.
She also describes persistent/significant acid reflux symptoms. Start Pepcid twice a day.
This may be part of the problem as well.
-
Continue oxygen supplementation to maintain pulse ox above 90%
Patient does have history of chronic hypercapnic respiratory failure-appears compensated based on VBG.
I did discuss with her the possibility of nocturnal noninvasive mechanical ventilation-she categorically declined as she is claustrophobic. She has tried in the past.
-
Her latest pulmonary function testing showed very severe airflow obstruction. Has declined over time.
Unfortunately she has not been able to lose weight which is compounding on her symptoms.
She has remained on maximal medical therapy and hospice has been contemplated as per the last note in February [address] Caraballo.
I did discuss with her again possibility of palliative care or hospice and she is not ready for 07/13/2025.
-
Mucolytic's
Mucus clearing devices-Acapella device/incentive spirometry.
-
patient remains on low-dose morphine for chronic pain.
This may need to be titrated in the future to help with her chronic dyspnea sensation.
Lung nodule:
CTA chest performed today (07/01/24) shows increasing size of LLL nodule, now 5.7mm from 4mm four months prior.
Patient declined further evaluation as she will not be able to tolerate therapy or diagnostic tools. She understands that this is enlarging and could be malignant.
-
Monitor blood sugar
Insulin supplementation as needed
DVT prophylaxis
GI prophylaxis-on Protonix
High risk situation. High risk of hypercapnic respiratory failure-continue to monitor.
Goals of care discussed with the patient with Dr. Funk 07/13/2025-she would like to remain full code. Her son notes that if she ends up on a ventilator she would not want tracheotomy or feeding tubes.
-
--- NOTE | 2025-07-13 11:00 | CM ---
rec tt from [facility] - PATIENT LOC change to inpatient
IMM explained & signed. In chart
[2025-07-13] MEDS: VIBRAMYCIN 100 MG PO ×2 (11:29→21:01)
[2025-07-13] MEDS: PEPCID 20 MG PO ×2 (11:47→21:01)
[2025-07-13 11:48] LABS: Glucose - Point of Care 215 mg/dl (70-99)
[2025-07-13 12:12] VITALS: BMI 40.6
[2025-07-13] MEDS: NOVOLOG FLEXPEN-LOW RESISTANCE 2 UNITS SC (13:16)
[2025-07-13] MEDS: ANESTHETIC LOZENGE 1 LOZENGE PO ×2 (14:38→19:39)
[2025-07-13 14:55] VITALS: BP 155/95
[2025-07-13 16:41] LABS: Glucose - Point of Care 147 mg/dl (70-99)
[2025-07-13] MEDS: NOVOLOG FLEXPEN-LOW RESISTANCE SC (16:45)
--- NOTE | 2025-07-13 17:18 | PTCARENOTE ---
Pt complains of R sided flank pain that has been worsening over the last 3 weeks that feels different than usual chronic back pain. Pt stated for last weeks, she has noticed an urge to urinate, but output has decreased. made aware. Bladder scan
performed and saw 187mL. Pt instructed on steps for urine collection for UA and was given materials for such. Pt instructed to call for RN when urine has been obtained. Call gan within reach.
[2025-07-13] MEDS: LOVENOX 40 MG SC (17:34)
[2025-07-13] MEDS: LIPITOR 10 MG PO (17:34)
[2025-07-13 17:41] LABS: Urine Character Cloudy (Clear)
[2025-07-13 17:48] LABS: Urine White Cell 80-90 /HPF (0-5)
[2025-07-13 20:30] VITALS: BP 144/96
[2025-07-13] MEDS: BENADRYL 12.5 MG IV (20:59)
--- NOTE | 2025-07-13 21:00 | PTCARENOTE ---
Pt with complaints of difficulty breathing and swallowing, expressing throat feels like it is 'closing up.' Vital signs as follows: Temp 97.6, HR: 97, BP: 144/96, RR: 20, & SpO2: 97% on 2L O2. Lung sounds remain diminished throughout with
inspiratory and expiratory wheezing. LAVONNE Charlton notified. AGRICULTURAL RESEARCHER at bed to assess patient. One-time dose of benadryl ordered. Refer to MAR. Plan of care ongoing.
[2025-07-13 21:21] LABS: Glucose - Point of Care 197 mg/dl (70-99)
[2025-07-13 22:57] VITALS: BP 117/60
[2025-07-14] MEDS: DUONEB 3 ML INH ×7 (00:07→23:40)
[2025-07-14 06:00] VITALS: BMI 41.1
[2025-07-14] MEDS: SOLU-MEDROL PF 40 MG IV ×2 (06:32→17:18)
[2025-07-14] MEDS: PERCOCET 5/325 1 TABLET PO ×2 (06:33→11:53)
[2025-07-14] MEDS: PULMICORT 0.5 MG INH ×2 (07:36→19:44)
[2025-07-14 08:00] LABS: Glucose - Point of Care 143 mg/dl (70-99)
[2025-07-14 08:07] VITALS: BP 134/79
[2025-07-14] MEDS: DALIRESP 500 MCG PO (08:10)
[2025-07-14] MEDS: ZESTRIL 10 MG PO (08:10)
[2025-07-14] MEDS: PEPCID 20 MG PO ×2 (08:10→20:54)
[2025-07-14] MEDS: LASIX 20 MG PO (08:11)
[2025-07-14] MEDS: INDERAL 10 MG PO ×2 (08:11→20:56)
[2025-07-14] MEDS: VIBRAMYCIN 100 MG PO ×2 (08:11→20:54)
[2025-07-14] MEDS: ASPIR LOW (ENTERIC COATED) 81 MG PO (08:11)
[2025-07-14] MEDS: GLUCOPHAGE 1000 MG PO ×2 (08:11→17:17)
[2025-07-14] MEDS: NOVOLOG FLEXPEN-LOW RESISTANCE SC ×2 (08:12→11:46)
--- NOTE | 2025-07-14 09:38 | W.PN.PUL3 ---
Today's Communication / Plan
-
Continue current management without change
Continue oxygen supplementation
Doxycycline for 5 days
Follow sputum culture
Secretion clearance intervention will continue
Physical therapy as able
Continue antiacids-continues to have significant GERD symptoms. May be contributing to recurrent exacerbation.
Assessment
-
70-year-old woman with history of advanced COPD, chronic hypoxemic and hypercapnic respiratory failure-minimal effort dyspnea at baseline. Admitted with 5-day history of increased cough, phlegm production and shortness of breath. Chest x-ray clear
in the emergency room. We were consulted for evaluation of her advanced COPD with acute decompensation on 07/13/2025.
Impression:
Acute exacerbation COPD/asthma overlap-likely tracheobronchitis.
Patient has advanced COPD with minimal effort dyspnea at baseline. Hospice has been contemplated.
Chest x-ray 07/12/2024 is clear.
Negative cardiac biomarkers
Negative influenza
Negative COVID
Negative D-dimer
Uncontrolled GERD-significant symptoms.
Chronic hypoxemic/hypercapnic respiratory failure-suspect compensated.
VBG 07/13/2025: 7.35/62/44
---
Condition present prior admission
Acute exacerbation June 2024 requiring hospitalization due to tracheobronchitis.
Known h/o stage IV COPD, on home O2 2LPM, albuterol HFA, azithromycin 500 mg MWF, budesonide, DNs, prednisone 10 mg BID, roflumilast. Previously on palliative care, which she discontinued herself.
[place] 02/2025- FEV1 0.75L 20%, FVC 1.53L 29%0
AB.4/49/64-room air-08/2018
13-[id number] smoker- quit 2018
Left lower lobe lung nodule: Enlarging. Patient declined any further evaluation.
-
Borderline low level of IgG 10/21/2017-subclasses were normal
Emphysema on CT
4 mm lung nodule new compared to prior left lower lobe on CAT scan 02/19/2024
COPD exacerbations 08/2018, 11/22/18, 12/08/18, 12/30/2018, April 2022
Heart failure with with preserved ejection fraction
Echocardiogram 05/29/2023: Poor visualization. Normal LVEF. No significant valvular abnormalities.
Hypertension
Hyperlipidemia
Type 2 diabetes
Cholecystectomy Aug 2018
Rheumatoid arthritis on chronic methotrexate
GERD-uncontrolled
Family history of hepatitis C (Brother), prostate cancer (Brother), COPD (mother), lung cancer (father)
Chronic back pain, on disability. S/P vertebroplasty. Recurrent Compression fractures-T4, 5-noted on low-dose CT chest 07/2018
Obesity
Snoring: Most Recent sleep study without obstructive sleep apnea.
Deconditioning
Former smoker
Assessment and plan:
-
Advanced COPD/asthma overlap-significant emphysema on CAT scan. Progressive shortness of breath over the years.
Steroid-dependent.
Very limited due to progressive pulmonary disease.
Multiple exacerbations-despite maximal medical therapy.
Recently in the last 3 months prednisone has been adjusted despite that continues to have significant symptoms.
-
This time with an acute exacerbation likely due to acute tracheobronchitis. This is despite maximal medical therapy.
Expiratory wheezing with prolonged expiratory phase. Minimal effort dyspnea.
-
Clinically improved but still bronchospastic-oxygen supplementation at baseline
Continue nebulizer therapy Pulmicort/DuoNebs [id number]-[id number]
Agree with 5 days of doxycycline
Sputum culture-pending.
Will restart low-dose macrolide therapy after completing 5 days of doxycycline(will decrease strength of azithromycin upon discharge to 250 mg Yvxqpp-Nvwhjvmtb-Mnrgtt) patient having significant acid reflux symptoms. May need to consider holding if
she continues to have symptoms.
IV methylprednisolone continues for now at the current dose.
Continue Roflumilast
Noted the Dupixent has been discontinued due to pancytopenia in the past. May need to consider other biologic if clinically appropriate in the outpatient setting.
-
Other triggers in her case include obesity. Weight loss may be beneficial-unclear whether this patient will qualify for GLP-1 agonist.
-
She also describes persistent/significant acid reflux symptoms. Continue Pepcid twice a day.
Ongoing GI symptoms with regurgitation this morning.
This may be part of the problem as well.
-
Continue oxygen supplementation to maintain pulse ox above 90%
Oxygenation at baseline 2 L.
Patient does have history of chronic hypercapnic respiratory failure-appears compensated based on VBG.
I did discuss with her the possibility of nocturnal noninvasive mechanical ventilation-she categorically declined as she is claustrophobic. She has tried in the past.
-
Her latest pulmonary function testing showed very severe airflow obstruction. Has declined over time.
-
She has remained on maximal medical therapy and hospice has been contemplated as per the last note in February [address] Caraballo.
I did discuss with her again possibility of palliative care or hospice and she is not ready for 07/13/2025.
-
Mucolytic's
Mucus clearing devices-Acapella device/incentive spirometry.
-
Patient remains on low-dose morphine for chronic pain.
This may need to be titrated in the future to help with her chronic dyspnea sensation.
Lung nodule:
CTA chest performed today (07/01/24) shows increasing size of LLL nodule, now 5.7mm from 4mm four months prior.
Patient declined further evaluation as she will not be able to tolerate therapy or diagnostic tools. She understands that this is enlarging and could be malignant.
-
Monitor blood sugar
Insulin supplementation as needed
Abnormal UA: Possible UTI
Follow urine culture
Patient on propranolol for essential tremors.
DVT prophylaxis
GI prophylaxis-on Protonix
High risk situation. High risk of hypercapnic respiratory failure-continue to monitor.
Goals of care discussed with the patient with Dr. Funk 07/13/2025-she would like to remain full code. Her son notes that if she ends up on a ventilator she would not want tracheotomy or feeding tubes.
-
Will continue to follow
Subjective Data
-
Date of Service:
Date of Service: July 14, 2025
Chief Complaint: Pulmonary Follow Up (Acute exacerbation of COPD)
Subjective:
Continues to report shortness of breath
Intermittent coughing with minimal phlegm production
Denies hemoptysis
Review of Systems
Cardiopulmonary: Dyspnea, Dyspnea on Exertion, Cough and Wheezing
Objective Data
Data Reviewed
Vital Signs / I&O / Oxygen:
Vital Signs
Temp Pulse Resp BP Pulse Ox
97.8 F 85 16 150/95 100
07/14/25 08:07 07/14/25 08:10 07/14/25 08:07 07/14/25 08:10 07/14/25 08:07
Intake and Output
07/13/25 07/14/25 07/15/25
06:59 06:59 06:59
Intake Total 240 / 240 750 / 750
Balance 240 / 240 750 / 750
SaO2 100
Nasal Cannula flow liters per 2
minute
Physical Exam
General: Comfortable (At rest)
HEENT: Normocephalic
Cardiovascular: S1-S2 and Regular Rhythm
Respiratory: Wheeze (Bilateral expiratory) and Other (Prolonged expiratory phase)
GI: Soft and Distended (Obese)
Neurology: Awake, Alert and No Motor Deficits
Skin: Warm
Labs/Micro/Reports
Lab Data
07/13/25 07:23
07/13/25 07:23
Microbiology
07/12/25 21:12 Sputum Respiratory Culture - Preliminary
07/12/25 21:12 Sputum Gram Stain - Preliminary
07/12/25 20:15 Nasal Swab Influenza Types A & B (ANGIE) - Final
Negative for Influenza A & B, NAAT
Negative results must be combined with clinical observations
and patient history.
Nucleic Acid Amplification test (NAAT)performed on the
[employer] NOW platform.
[2025-07-14] MEDS: MS CONTIN (EXTENDED RELEASE) 15 MG PO ×2 (09:48→20:55)
[2025-07-14 11:37] LABS: Glucose - Point of Care 144 mg/dl (70-99)
--- NOTE | 2025-07-14 11:37 | W.PN.HOSP.TC ---
Today's Communication/Plan
-
Continue with steroids and nebulizers.
Add ceftriaxone for possible UTI and follow urine culture data.
Started on PPI along with Pepcid.
Lumbar spine x-ray.
Assessment / Plan
Assessment / Plan
IMPRESSION:
70-year-old with history of advanced COPD on 2 L home O2, on chronic prednisone and azithromycin suppression, chronic pain, diabetes on sliding scale insulin, obesity recent admission for parotid infection who presents to the emergency department
with from upper respiratory symptoms increased cough, shortness of breath and dyspnea on exertion. X-ray shows no acute infiltrate. ECG is nonischemic and she has negative troponin. BNP is negative. Suspect acute viral upper respiratory
infection with slight worsening of COPD. She is satting 99% at rest on 2 L. However she feels with any exertion she has severe dyspnea and cannot catch her breath. No prior history of PE
PLAN:
Shortness of breath -secondary to acute COPD exacerbation
-Appreciate pulmonary input-continue IV Solu-Medrol 40 mg every 12
-Continue DuoNebs koghte-zdb-vgbdy
-Added doxycycline. Hold her chronic Zithromax while in the hospital.
-Negative COVID and flu. Chest x-ray shows no evidence of obvious pneumonia
-Continue long-acting inhalers, budesonide Roflumilast
Urgency of urine with positive urinalysis-raises concern for UTI. Add ceftriaxone and follow urine culture data.
Significant GERD symptoms-patient was put on Pepcid yesterday. I would also add Protonix for acute treatments. She was on aspirin as well as as needed ibuprofen which he discontinued. Azithromycin can give GERD symptoms with long Tums.-Hold for
now.
Back pain and lumbar area-rule out new acute fractures. Patient had no trauma. Patient with prior history of compression fracture. Patient advised to return to PCP and start on osteoporosis treatments.
Diabetes
-Continue metformin 1 g twice daily
� Sliding scale insulin
Hypertension/CHF�no evidence of CHF exacerbation at this time
� Continue furosemide 20 mg daily
� Continue lisinopril and propranolol
Chronic pain�
�Continue morphine 50 mg every 12 hours
Percocet every 6 hours as needed, patient is of fentanyl patch
DVT prophylaxis Lovenox subcu
CODE STATUS full code
discussed with pulmonary.
Total time spent on today's encounter was 52 minutes which included time spent in counseling the patient/family regarding diagnosis and treatment plan as listed above, goals of care, and symptom management. Case was discussed with nursing staff,
specialists, and care coordinators/case management. All labs and imaging personally reviewed by me. Remainder the time spent in detailed review of previous records, lab data, imaging, and other medical provider documentation.
Portions of this chart may have been created with voice recognition software. Occasional wrong word or 'sound alike' substitutions may have occurred due to the inherent limitations of voice recognition software.
Anticipated Discharge: > 48 hours
Subjective/Interval History
-
Date of Service: July 14, 2025
Breathing bit better. No chest pain.
Patient has lately significant issues with heartburn and reflux. She gets sour taste in her mouth. Was taking ilxe-vbr-iioctub medicines. Denies any dysphagia.
Continues to have urgency symptoms. Continues to have low back pain. She is known to have compression fractures and she says she had 11 of them!. Not on any osteoporosis treatment. Tells me that the primary doctor thinks she has osteoporosis.
Objective Data
-
Vital Signs:
Vital Signs
Temp Pulse Resp BP Pulse Ox
97.8 F 92 22 150/95 98
07/14/25 08:07 07/14/25 11:31 07/14/25 11:31 07/14/25 08:10 07/14/25 11:31
I&O
07/13/25 07/14/25 07/15/25
06:59 06:59 06:59
Intake Total 240 / 240 750 / 750
Balance 240 / 240 750 / 750
Physical Exam
-
General: No Apparent Distress
Respiratory: Wheezes (Bilateral) and Non Labored Respirations; Negative Accessory Resp Muscle Use
Cardiac: Regular Rhythm and S1/S2
GI: Soft and Other (Obese)
Musculoskeletal: Other (Tenderness over the lower lumbar vertebral area)
Neuro: AO x 3
Psych: Calm; Negative Confused
Data Reviewed
-
Labs: Labs Reviewed by me
[2025-07-14] MEDS: ANESTHETIC LOZENGE 1 LOZENGE PO ×2 (11:53→20:58)
[2025-07-14] MEDS: ROCEPHIN 1000 MG IV (11:53)
[2025-07-14] MEDS: STERILE WATER FOR INJECTION 10 ML IV (11:53)
[2025-07-14] MEDS: PROTONIX 40 MG PO (11:54)
[2025-07-14 14:57] LABS: Glycohemoglobin (HgbA1c) 5.9 % (4.0-5.6)
[2025-07-14 15:50] VITALS: BP 143/80
[2025-07-14 16:32] LABS: Glucose - Point of Care 180 mg/dl (70-99)
[2025-07-14] MEDS: NOVOLOG FLEXPEN-LOW RESISTANCE 1 UNITS SC (17:17)
[2025-07-14] MEDS: LOVENOX 40 MG SC (17:17)
[2025-07-14] MEDS: LIPITOR 10 MG PO (17:18)
[2025-07-14 21:19] LABS: Glucose - Point of Care 175 mg/dl (70-99)
[2025-07-14 23:00] VITALS: BP 124/49
[2025-07-15] MEDS: DUONEB 3 ML INH ×6 (03:15→23:55)
[2025-07-15] MEDS: PERCOCET 5/325 1 TABLET PO ×2 (03:51→18:15)
[2025-07-15] MEDS: SOLU-MEDROL PF 40 MG IV ×2 (05:30→17:36)
[2025-07-15] MEDS: ANESTHETIC LOZENGE 1 LOZENGE PO ×3 (05:30→23:56)
[2025-07-15 05:46] VITALS: BMI 41.1
[2025-07-15 07:00] VITALS: BP 135/74
[2025-07-15] MEDS: PULMICORT 0.5 MG INH ×2 (07:30→18:24)
--- NOTE | 2025-07-15 07:35 | PTCARENOTE ---
Nightshift RN informed this RN that patient verbalized overnight that she would like to discuss changing full code status to DNR status, made aware.
[2025-07-15] MEDS: VIBRAMYCIN 100 MG PO (07:56)
[2025-07-15] MEDS: PROTONIX 40 MG PO ×2 (07:56→20:40)
[2025-07-15] MEDS: DALIRESP 500 MCG PO (07:56)
[2025-07-15] MEDS: INDERAL 10 MG PO ×2 (07:56→20:41)
[2025-07-15] MEDS: GLUCOPHAGE 1000 MG PO ×2 (07:57→17:36)
[2025-07-15] MEDS: LASIX 20 MG PO (07:57)
[2025-07-15] MEDS: ASPIR LOW (ENTERIC COATED) 81 MG PO (07:57)
[2025-07-15] MEDS: PEPCID 20 MG PO ×2 (07:57→20:41)
[2025-07-15] MEDS: ZESTRIL 10 MG PO (07:57)
[2025-07-15] MEDS: NOVOLOG FLEXPEN-LOW RESISTANCE SC ×2 (08:01→17:35)
[2025-07-15 08:02] LABS: Glucose - Point of Care 145 mg/dl (70-99)
[2025-07-15 08:21] LABS: Blood Urea Nitrogen 20 mg/dl (7-17); Calcium 9.6 mg/dl (8.4-10.2); Carbon Dioxide 33 mmol/L (22-30); Chloride 95 mmol/L (98-107); Estimated Creatinine Clearance 82 ml/min; Glucose 135 mg/dl (70-99); Potassium 4.5 mmol/L (3.5-5.1); Sodium 133 mmol/L (135-145); eGFR > 60.00
[2025-07-15] MEDS: ROBITUSSIN 200 MG PO ×3 (09:13→23:56)
[2025-07-15] MEDS: MS CONTIN (EXTENDED RELEASE) 15 MG PO ×2 (09:17→20:40)
--- NOTE | 2025-07-15 10:45 | W.PN.HOSP.TC ---
Today's Communication/Plan
-
Continue with steroids, nebulizers, antibiotics.
Increase PPI.
Obtain CT of the abdomen and pelvis with p.o. and IV contrast.
Assessment / Plan
Assessment / Plan
IMPRESSION:
70-year-old with history of advanced COPD on 2 L home O2, on chronic prednisone and azithromycin suppression, chronic pain, diabetes on sliding scale insulin, obesity recent admission for parotid infection who presents to the emergency department
with from upper respiratory symptoms increased cough, shortness of breath and dyspnea on exertion. X-ray shows no acute infiltrate. ECG is nonischemic and she has negative troponin. BNP is negative. Suspect acute viral upper respiratory
infection with slight worsening of COPD. She is satting 99% at rest on 2 L. However she feels with any exertion she has severe dyspnea and cannot catch her breath. No prior history of PE
PLAN:
Shortness of breath -secondary to acute COPD exacerbation
-Appreciate pulmonary input-continue IV Solu-Medrol 40 mg every 12 without wean today
-Continue DuoNebs luxomp-fvc-bhran
-Added doxycycline. Hold her chronic Zithromax while in the hospital.
-Negative COVID and flu. Chest x-ray shows no evidence of obvious pneumonia
-Continue long-acting inhalers, budesonide Roflumilast
Urgency of urine with positive urinalysis-raises concern for UTI. Gram-negative bacilli in urine culture-identification pending. Continue ceftriaxone and follow urine culture data.
Significant GERD symptoms-patient was put on Pepcid and added Protonix which I will increase it to twice a day with her ongoing symptoms. With her abdominal complaints obtain CT of the abdomen pelvis. She was on aspirin as well as as needed
ibuprofen which he discontinued. Azithromycin can give GERD symptoms with long Tums.-Hold for now.
Back pain and lumbar area-lumbar spine xray this admission shows chronic compression fractures of lumbar vertebrae. Patient had no trauma. Patient with prior history of compression fracture. Patient advised to return to PCP and start on
osteoporosis treatments.
Diabetes
-Continue metformin 1 g twice daily
� Sliding scale insulin
Hypertension/CHF�no evidence of CHF exacerbation at this time
� Continue furosemide 20 mg daily
� Continue lisinopril and propranolol
Chronic pain�
�Continue morphine 50 mg every 12 hours
Percocet every 6 hours as needed, patient is of fentanyl patch
DVT prophylaxis Lovenox subcu
CODE STATUS full code
Portions of this chart may have been created with voice recognition software. Occasional wrong word or 'sound alike' substitutions may have occurred due to the inherent limitations of voice recognition software.
Anticipated Discharge: > 48 hours
Subjective/Interval History
-
Date of Service: July 15, 2025
Breathing has improved a little bit but still not at her baseline. Cough with some productive phlegm. No chest pain.
Still having significant reflux from the stomach. She had regurgitated after last meal. Still feels discomfort and bloated in the upper central abdomen. Denies any prior history of peptic ulcer disease. Not constipated-had bowel movements this
morning.
No fever or chills.
Objective Data
-
Labs:
Laboratory Results
07/15/25
07:40
Sodium 133 L
Potassium 4.5
Chloride 95 L
Carbon Dioxide 33 H
BUN 20 H
Creatinine 0.7
Glucose 135 H
Calcium 9.6
Vital Signs:
Vital Signs
Temp Pulse Resp BP Pulse Ox
97.7 F 75 18 135/74 97
07/15/25 07:00 07/15/25 07:56 07/15/25 07:34 07/15/25 07:56 07/15/25 07:34
I&O
07/14/25 07/15/25 07/16/25
06:59 06:59 06:59
Intake Total 750 / 750 480 / 480
Balance 750 / 750 480 / 480
Physical Exam
-
General: Comfortable
Respiratory: Wheezes (occasional BL ), Non Labored Respirations and Decreased Breath Sounds (in general); Negative Accessory Resp Muscle Use
Cardiac: Regular Rhythm and S1/S2
GI: Soft, Nondistended (obese), Normal Bowel Sounds and Tender (tenderness in Epigastric /RUQ/LUQ areas without rebound or guarding)
Neuro: AO x 3
Psych: Calm; Negative Confused
Data Reviewed
-
Labs: Labs Reviewed by me
[2025-07-15 11:30] LABS: Glucose - Point of Care 169 mg/dl (70-99)
[2025-07-15] MEDS: ROCEPHIN 1000 MG IV (12:09)
[2025-07-15] MEDS: STERILE WATER FOR INJECTION 10 ML IV (12:09)
[2025-07-15] MEDS: OMNIPAQUE 50 ML PO (12:09)
[2025-07-15] MEDS: NOVOLOG FLEXPEN-LOW RESISTANCE 1 UNITS SC (12:10)
--- NOTE | 2025-07-15 12:18 | W.PN.PUL3 ---
Today's Communication / Plan
-
- Continue Duoneb, Budesonide and Steroids
- D/c Doxycycline
- Await CT A/P
Assessment
-
70-year-old woman with history of advanced COPD, chronic hypoxemic and hypercapnic respiratory failure-minimal effort dyspnea at baseline. Admitted with 5-day history of increased cough, phlegm production and shortness of breath. Chest x-ray clear
in the emergency room. We were consulted for evaluation of her advanced COPD with acute decompensation on 07/13/2025.
Impression:
Acute exacerbation COPD/asthma overlap-likely tracheobronchitis.
Patient has advanced COPD with minimal effort dyspnea at baseline. Hospice has been contemplated.
Chest x-ray 07/12/2024 is clear.
Negative cardiac biomarkers
Negative influenza
Negative COVID
Negative D-dimer
Uncontrolled GERD-significant symptoms.
Chronic hypoxemic/hypercapnic respiratory failure-suspect compensated.
VBG 07/13/2025: 7.35/62/44
---
Condition present prior admission
Acute exacerbation June 2024 requiring hospitalization due to tracheobronchitis.
Known h/o stage IV COPD, on home O2 2LPM, albuterol HFA, azithromycin 500 mg MWF, budesonide, DNs, prednisone 10 mg BID, roflumilast. Previously on palliative care, which she discontinued herself.
[place] 02/2025- FEV1 0.75L 20%, FVC 1.53L 29%0
AB.4/49/64-room air-08/2018
15-uysd-uosk smoker- quit 2018
Left lower lobe lung nodule: Enlarging. Patient declined any further evaluation.
-
Borderline low level of IgG 10/21/2017-subclasses were normal
Emphysema on CT
4 mm lung nodule new compared to prior left lower lobe on CAT scan 02/19/2024
COPD exacerbations 08/2018, 11/22/18, 12/08/18, 12/30/2018, April 2022
Heart failure with with preserved ejection fraction
Echocardiogram 05/29/2023: Poor visualization. Normal LVEF. No significant valvular abnormalities.
Hypertension
Hyperlipidemia
Type 2 diabetes
Cholecystectomy Aug 2018
Rheumatoid arthritis on chronic methotrexate
GERD-uncontrolled
Family history of hepatitis C (Brother), prostate cancer (Brother), COPD (mother), lung cancer (father)
Chronic back pain, on disability. S/P vertebroplasty. Recurrent Compression fractures-T4, 5-noted on low-dose CT chest 07/2018
Obesity
Snoring: Most Recent sleep study without obstructive sleep apnea.
Deconditioning
Former smoker
Assessment and plan:
-
Advanced COPD/asthma overlap-significant emphysema on CAT scan. Progressive shortness of breath over the years.
Steroid-dependent.
Very limited due to progressive pulmonary disease.
Multiple exacerbations-despite maximal medical therapy.
Recently in the last 3 months prednisone has been adjusted despite that continues to have significant symptoms.
-
This time with an acute exacerbation likely due to acute tracheobronchitis. This is despite maximal medical therapy.
Expiratory wheezing with prolonged expiratory phase. Minimal effort dyspnea. Reports some improvement over last 24 hrs
-
Continue nebulizer therapy Pulmicort/DuoNebs amskfz-lan-ywrto
D/c doxycycline, in view of significant GI symptoms
Sputum culture
Will restart low-dose macrolide therapy after completing 5 days of doxycycline(will decrease strength of azithromycin upon discharge to 250 mg Avynow-Unaqtyiax-Ihtctp) patient having significant acid reflux symptoms. May need to consider holding if
she continues to have symptoms.
IV methylprednisolone continues for now at the current dose.
Continue Roflumilast
Noted the Dupixent has been discontinued due to pancytopenia in the past. May need to consider other biologic if clinically appropriate in the outpatient setting.
-
Other triggers in her case include obesity. Weight loss may be beneficial-unclear whether this patient will qualify for GLP-1 agonist.
-
She also describes persistent/significant acid reflux symptoms. On Pepcid and PPI
Ongoing GI symptoms with regurgitation this morning.
This may be part of the problem as well. Going for CT A/P today. Eventually needs Endoscopy/UGI series.
-
Continue oxygen supplementation to maintain pulse ox above 90%
Oxygenation at baseline 2 L.
Patient does have history of chronic hypercapnic respiratory failure-appears compensated based on VBG.
Dr. Funk discuss with her the possibility of nocturnal noninvasive mechanical ventilation-she categorically declined as she is claustrophobic. She has tried in the past.
-
Her latest pulmonary function testing showed very severe airflow obstruction. Has declined over time.
-
She has remained on maximal medical therapy and hospice has been contemplated as per the last note in February [address] Caraballo[address] Funk discussed with her again possibility of palliative care or hospice and she is not ready for 07/13/2025.
-
Mucolytic's
Mucus clearing devices-Acapella device/incentive spirometry.
-
Patient remains on low-dose morphine for chronic pain.
This may need to be titrated in the future to help with her chronic dyspnea sensation.
Lung nodule:
CTA chest performed today (07/01/24) shows increasing size of LLL nodule, now 5.7mm from 4mm four months prior.
Patient declined further evaluation as she will not be able to tolerate therapy or diagnostic tools. She understands that this is enlarging and could be malignant.
-
Monitor blood sugar
Insulin supplementation as needed
Abnormal UA: Possible UTI
Follow urine culture
Patient on propranolol for essential tremors.
DVT prophylaxis
GI prophylaxis-on Protonix
High risk situation. High risk of hypercapnic respiratory failure-continue to monitor.
Goals of care discussed with the patient with Dr. Funk 07/13/2025-she would like to remain full code. Her son notes that if she ends up on a ventilator she would not want tracheotomy or feeding tubes.
-
Will continue to follow
Subjective Data
-
Date of Service:
Date of Service: July 15, 2025
Chief Complaint: Pulmonary Follow Up (Acute exacerbation of COPD)
Subjective:
Reports regurgitation symptoms.
Review of Systems
Genitourinary: Other (No new symptoms reported. )
Objective Data
Data Reviewed
Vital Signs / I&O / Oxygen:
Vital Signs
Temp Pulse Resp BP Pulse Ox
97.7 F 75 18 135/74 98
07/15/25 07:00 07/15/25 11:17 07/15/25 11:17 07/15/25 07:56 07/15/25 11:17
Intake and Output
07/14/25 07/15/25 07/16/25
06:59 06:59 06:59
Intake Total 750 / 750 480 / 480
Balance 750 / 750 480 / 480
SaO2 98
Nasal Cannula flow liters per 2
minute
Physical Exam
General: Comfortable (At rest)
HEENT: Normocephalic
Cardiovascular: S1-S2 and Regular Rhythm
Respiratory: Wheeze (Mild end expiratory ) and Other (Prolonged expiratory phase)
GI: Soft and Distended (Obese)
Neurology: Awake and Alert
Skin: Warm
Labs/Micro/Reports
Lab Data
07/13/25 07:23
07/15/25 07:40
Microbiology
07/12/25 21:12 Sputum Respiratory Culture - Final
07/12/25 21:12 Sputum Gram Stain - Final
07/13/25 17:32 Urine Urine Culture - Final
Klebsiella oxytoca
07/12/25 20:15 Nasal Swab Influenza Types A & B (ANGIE) - Final
Negative for Influenza A & B, NAAT
Negative results must be combined with clinical observations
and patient history.
Nucleic Acid Amplification test (NAAT)performed on the
[employer] platform.
[2025-07-15 15:00] VITALS: BP 130/68
[2025-07-15 17:19] LABS: Glucose - Point of Care 145 mg/dl (70-99)
[2025-07-15] MEDS: LOVENOX 40 MG SC (17:36)
[2025-07-15] MEDS: LIPITOR 10 MG PO (17:36)
[2025-07-15 21:41] LABS: Glucose - Point of Care 167 mg/dl (70-99)
[2025-07-15 23:10] VITALS: BP 119/59
[2025-07-16] MEDS: PERCOCET 5/325 1 TABLET PO ×3 (04:01→20:32)
[2025-07-16] MEDS: DUONEB 3 ML INH ×6 (04:09→23:48)
[2025-07-16 05:51] VITALS: BMI 41.2
[2025-07-16] MEDS: SOLU-MEDROL PF 40 MG IV (06:38)
[2025-07-16 07:30] LABS: Hematocrit 37.9 % (37.0-47.0); Hemoglobin 12.8 g/dL (12.0-16.0); Mean Corp Hgb Conc. 33.8 g/dL (33.0-37.0); Mean Corpuscular Volume 91.3 fL (81.0-99.0); Platelet Count 201 10^3/uL (130-400); Red Cell Dist. Width 13.2 % (11.5-14.5)
[2025-07-16] MEDS: PULMICORT 0.5 MG INH ×2 (07:30→19:42)
[2025-07-16 07:34] LABS: Glucose - Point of Care 137 mg/dl (70-99)
[2025-07-16 07:39] VITALS: BP 151/89
[2025-07-16] MEDS: NOVOLOG FLEXPEN-LOW RESISTANCE SC ×2 (07:59→17:24)
[2025-07-16] MEDS: PROTONIX 40 MG PO ×2 (07:59→20:33)
[2025-07-16] MEDS: ASPIR LOW (ENTERIC COATED) 81 MG PO (07:59)
[2025-07-16] MEDS: PEPCID 20 MG PO ×2 (07:59→20:34)
[2025-07-16] MEDS: DALIRESP 500 MCG PO (07:59)
[2025-07-16] MEDS: GLUCOPHAGE 1000 MG PO ×2 (07:59→17:24)
[2025-07-16] MEDS: INDERAL 10 MG PO ×2 (07:59→20:34)
[2025-07-16 08:00] LABS: Blood Urea Nitrogen 22 mg/dl (7-17); Calcium 9.7 mg/dl (8.4-10.2); Carbon Dioxide 35 mmol/L (22-30); Chloride 93 mmol/L (98-107); Estimated Creatinine Clearance 95 ml/min; Glucose 126 mg/dl (70-99); Potassium 4.6 mmol/L (3.5-5.1); Sodium 134 mmol/L (135-145); eGFR > 60.00
[2025-07-16] MEDS: ZESTRIL 10 MG PO (08:00)
[2025-07-16] MEDS: LASIX 20 MG PO (08:00)
[2025-07-16] MEDS: MS CONTIN (EXTENDED RELEASE) 15 MG PO ×2 (10:12→21:59)
[2025-07-16] MEDS: IMODIUM 2 MG PO (10:12)
--- NOTE | 2025-07-16 11:06 | W.PN.HOSP.TC ---
Today's Communication/Plan
-
Continue with IV steroids, nebulizers
Continue with Pepcid and Protonix
Assessment / Plan
Assessment / Plan
IMPRESSION:
70-year-old with history of advanced COPD on 2 L home O2, on chronic prednisone and azithromycin suppression, chronic pain, diabetes on sliding scale insulin, obesity recent admission for parotid infection who presents to the emergency department
with from upper respiratory symptoms increased cough, shortness of breath and dyspnea on exertion. X-ray shows no acute infiltrate. ECG is nonischemic and she has negative troponin. BNP is negative. Suspect acute viral upper respiratory
infection with slight worsening of COPD. She is satting 99% at rest on 2 L. However she feels with any exertion she has severe dyspnea and cannot catch her breath. No prior history of PE
PLAN:
Shortness of breath -secondary to acute COPD exacerbation
- Only partially improved. Still symptomatic.
-Appreciate pulmonary input-continue IV Solu-Medrol 40 mg every 12
-Continue DuoNebs [id number]
-Hold her chronic Zithromax while in the hospital. Doxycycline discontinued because of GERD symptoms
-Negative COVID and flu. Chest x-ray shows no evidence of obvious pneumonia
-Continue long-acting inhalers, budesonide Roflumilast
Urgency of urine with positive urinalysis-raises concern for UTI. Urine culture showing Klebsiella oxytoca. Continue ceftriaxone .
Significant GERD symptoms-patient was put on Pepcid and added Protonix which which was increased to twice a day with her ongoing symptoms. CT of the abdomen pelvis shows no acute pathology to account for her current symptoms.. She was on aspirin
as well as as needed ibuprofen which he discontinued. Azithromycin can give GERD symptoms with long Tums.-Hold Zithromax for now. If no improvement with current GERD treatment consult GI.
Biliary ductal dilatation-CT shows both intra and extrahepatic dilatation which is also s/p cholecystectomy. Her liver function tests are normal. Consider MRI as an outpatient.
Back pain and lumbar area-lumbar spine xray this admission shows chronic compression fractures of lumbar vertebrae. Patient had no trauma. Patient with prior history of compression fracture. Patient advised to return to PCP and start on
osteoporosis treatments.
Diabetes
-Continue metformin 1 g twice daily
� Sliding scale insulin
Hypertension/CHF�no evidence of CHF exacerbation at this time
� Continue furosemide 20 mg daily
� Continue lisinopril and propranolol
Chronic pain�
�Continue morphine 50 mg every 12 hours
Percocet every 6 hours as needed, patient is of fentanyl patch
DVT prophylaxis Lovenox subcu
CODE STATUS full code
Portions of this chart may have been created with voice recognition software. Occasional wrong word or 'sound alike' substitutions may have occurred due to the inherent limitations of voice recognition software.
Anticipated Discharge: > 48 hours
Subjective/Interval History
-
Date of Service: July 16, 2025
Still troubled with shortness of breath. She only improved partially. No CP.
Still ongoing reflux symptoms. No nausea vomiting. Loose stools after the p.o. contrast for the CT.
Objective Data
-
Labs:
Laboratory Results
07/16/25
06:49
WBC 12.8 H
Hgb 12.8
Hct 37.9
Plt Count 201
Sodium 134 L
Potassium 4.6
Chloride 93 L
Carbon Dioxide 35 H
BUN 22 H
Creatinine 0.6
Glucose 126 H
Calcium 9.7
Vital Signs:
Vital Signs
Temp Pulse Resp BP Pulse Ox
97.8 F 78 20 151/89 100
07/16/25 07:39 07/16/25 07:59 07/16/25 07:39 07/16/25 07:59 07/16/25 07:39
I&O
07/15/25 07/16/25 07/17/25
06:59 06:59 06:59
Intake Total 480 / 480 480 / 480
Balance 480 / 480 480 / 480
Physical Exam
-
General: No Apparent Distress
Respiratory: Wheezes (Bilateral) and Non Labored Respirations; Negative Accessory Resp Muscle Use
Cardiac: Regular Rhythm and S1/S2; Negative Tachycardic
GI: Soft and Nontender
Neuro: AO x 3
Psych: Calm
Data Reviewed
-
CT Scan: Report Reviewed by me (CT of the abdomen pelvis)
Labs: Labs Reviewed by me
[2025-07-16 12:04] LABS: Glucose - Point of Care 232 mg/dl (70-99)
[2025-07-16] MEDS: NOVOLOG FLEXPEN-LOW RESISTANCE 2 UNITS SC (12:50)
[2025-07-16] MEDS: STERILE WATER FOR INJECTION 10 ML IV (12:50)
[2025-07-16] MEDS: ROCEPHIN 1000 MG IV (12:50)
--- NOTE | 2025-07-16 13:57 | W.PN.PUL3 ---
Today's Communication / Plan
-
- Resume p.o. azithromycin at reduced dose of 250 starting 07/17
- Discontinue ceftriaxone
- Switch IV Solu-Medrol to prednisone starting 07/17
- Pulmonary team will follow along
Assessment
-
70-year-old woman with history of advanced COPD, chronic hypoxemic and hypercapnic respiratory failure-minimal effort dyspnea at baseline. Admitted with 5-day history of increased cough, phlegm production and shortness of breath. Chest x-ray clear
in the emergency room. We were consulted for evaluation of her advanced COPD with acute decompensation on 07/13/2025.
Impression:
Acute exacerbation COPD/asthma overlap-likely tracheobronchitis.
Patient has advanced COPD with minimal effort dyspnea at baseline. Hospice has been contemplated.
Chest x-ray 07/12/2024 is clear.
Negative cardiac biomarkers
Negative influenza
Negative COVID
Negative D-dimer
Uncontrolled GERD-significant symptoms.
Chronic hypoxemic/hypercapnic respiratory failure-suspect compensated.
VBG 07/13/2025: 7.35/62/44
---
Condition present prior admission
Acute exacerbation June 2024 requiring hospitalization due to tracheobronchitis.
Known h/o stage IV COPD, on home O2 2LPM, albuterol HFA, azithromycin 500 mg MWF, budesonide, DNs, prednisone 10 mg BID, roflumilast. Previously on palliative care, which she discontinued herself.
Stanislaw 02/2025- FEV1 0.75L 20%, FVC 1.53L 29%0
AB.4/49/64-room air-08/2018
[id number] smoker- quit 2018
Left lower lobe lung nodule: Enlarging. Patient declined any further evaluation.
-
Borderline low level of IgG 10/21/2017-subclasses were normal
Emphysema on CT
4 mm lung nodule new compared to prior left lower lobe on CAT scan 02/19/2024
COPD exacerbations 08/2018, 11/22/18, 12/08/18, 12/30/2018, April 2022
Heart failure with with preserved ejection fraction
Echocardiogram 05/29/2023: Poor visualization. Normal LVEF. No significant valvular abnormalities.
Hypertension
Hyperlipidemia
Type 2 diabetes
Cholecystectomy Aug 2018
Rheumatoid arthritis on chronic methotrexate
GERD-uncontrolled
Family history of hepatitis C (Brother), prostate cancer (Brother), COPD (mother), lung cancer (father)
Chronic back pain, on disability. S/P vertebroplasty. Recurrent Compression fractures-T4, 5-noted on low-dose CT chest 07/2018
Obesity
Snoring: Most Recent sleep study without obstructive sleep apnea.
Deconditioning
Former smoker
Assessment and plan:
-
Advanced COPD/asthma overlap-significant emphysema on CAT scan. Progressive shortness of breath over the years.
Steroid-dependent.
Very limited due to progressive pulmonary disease.
Multiple exacerbations-despite maximal medical therapy.
Recently in the last 3 months prednisone has been adjusted despite that continues to have significant symptoms.
-
This time with an acute exacerbation likely due to acute tracheobronchitis. This is despite maximal medical therapy.
Expiratory wheezing with prolonged expiratory phase. Minimal effort dyspnea. Reports improvement over last 48 hrs
-
Continue nebulizer therapy Pulmicort/DuoNebs [id number]
D/c doxycycline, in view of significant GI symptoms
Sputum culture, usual juanita. Procalcitonin negative. Imaging is not suggestive of infiltrate. Discontinue ceftriaxone, completed 3 days of antibiotic
Resume azithromycin, Thursday, will target reduced dose of to 50 mg daily considering her significant GI symptoms.
Switch to oral prednisone starting 1006
Continue Roflumilast
Noted the Dupixent has been discontinued due to pancytopenia in the past. May need to consider other biologic if clinically appropriate in the outpatient setting.
-
Other triggers in her case include obesity. Weight loss may be beneficial-unclear whether this patient will qualify for GLP-1 agonist.
-
She also describes persistent/significant acid reflux symptoms. On Pepcid and PPI
Ongoing GI symptoms with regurgitation this morning.
This may be part of the problem as well. Eventually needs Endoscopy/UGI series.
-
Continue oxygen supplementation to maintain pulse ox above 90%
Oxygenation at baseline 2 L.
Patient does have history of chronic hypercapnic respiratory failure-appears compensated based on VBG.
Dr. Funk discuss with her the possibility of nocturnal noninvasive mechanical ventilation-she categorically declined as she is claustrophobic. She has tried in the past.
-
Her latest pulmonary function testing showed very severe airflow obstruction. Has declined over time.
-
She has remained on maximal medical therapy and hospice has been contemplated as per the last note in February [address] Caraballo[address] Funk discussed with her again possibility of palliative care or hospice and she is not ready for 07/13/2025.
-
Mucolytic's
Mucus clearing devices-Acapella device/incentive spirometry.
-
Patient remains on low-dose morphine for chronic pain.
This may need to be titrated in the future to help with her chronic dyspnea sensation.
Lung nodule:
CTA chest performed today (07/01/24) shows increasing size of LLL nodule, now 5.7mm from 4mm four months prior.
Patient declined further evaluation as she will not be able to tolerate therapy or diagnostic tools. She understands that this is enlarging and could be malignant.
-
Monitor blood sugar
Insulin supplementation as needed
Abnormal UA: Possible UTI
Follow urine culture
Patient on propranolol for essential tremors.
DVT prophylaxis
GI prophylaxis-on Protonix
High risk situation. High risk of hypercapnic respiratory failure-continue to monitor.
Goals of care discussed with the patient with Dr. Funk 07/13/2025-she would like to remain full code. Her son notes that if she ends up on a ventilator she would not want tracheotomy or feeding tubes.
-
Will continue to follow
Subjective Data
-
Date of Service:
Date of Service: July 16, 2025
Chief Complaint: Pulmonary Follow Up (Acute exacerbation of COPD)
Subjective:
Patient comfortably sitting in bed, appears more comfortable and reports improving symptoms
Review of Systems
Genitourinary: Other (No new symptoms reported.)
Objective Data
Data Reviewed
Vital Signs / I&O / Oxygen:
Vital Signs
Temp Pulse Resp BP Pulse Ox
97.8 F 75 16 151/89 100
07/16/25 07:39 07/16/25 11:15 07/16/25 11:15 07/16/25 07:59 07/16/25 12:08
Intake and Output
07/15/25 07/16/25 07/17/25
06:59 06:59 06:59
Intake Total 480 / 480 480 / 480
Balance 480 / 480 480 / 480
SaO2 100
Nasal Cannula flow liters per 2
minute
Physical Exam
General: Comfortable (At rest)
HEENT: Normocephalic
Cardiovascular: S1-S2 and Regular Rhythm
Respiratory: Wheeze (Nearly resolved) and Other (Prolonged expiratory phase)
GI: Soft and Distended (Obese)
Neurology: Awake and Alert
Skin: Warm
Labs/Micro/Reports
Lab Data
07/16/25 06:49
07/16/25 06:49
Microbiology
07/12/25 21:12 Sputum Respiratory Culture - Final
07/12/25 21:12 Sputum Gram Stain - Final
07/13/25 17:32 Urine Urine Culture - Final
Klebsiella oxytoca
[2025-07-16] MEDS: ROBITUSSIN 200 MG PO ×2 (15:18→22:09)
[2025-07-16] MEDS: ANESTHETIC LOZENGE 1 LOZENGE PO ×2 (15:18→22:09)
[2025-07-16 16:11] VITALS: BP 149/81
[2025-07-16] MEDS: LIPITOR 10 MG PO (17:24)
[2025-07-16] MEDS: LOVENOX 40 MG SC (17:24)
[2025-07-16 17:31] LABS: Glucose - Point of Care 119 mg/dl (70-99)
[2025-07-16 22:03] LABS: Glucose - Point of Care 149 mg/dl (70-99)
[2025-07-16 23:00] VITALS: BP 147/80
[2025-07-17] MEDS: DUONEB 3 ML INH ×3 (03:34→11:06)
[2025-07-17] MEDS: PERCOCET 5/325 1 TABLET PO ×2 (03:39→07:57)
[2025-07-17] MEDS: PULMICORT 0.5 MG INH (07:27)
[2025-07-17] MEDS: NOVOLOG FLEXPEN-LOW RESISTANCE SC (07:28)
[2025-07-17 07:29] LABS: Glucose - Point of Care 111 mg/dl (70-99)
[2025-07-17 07:38] VITALS: BP 176/95
[2025-07-17] MEDS: DALIRESP 500 MCG PO (07:52)
[2025-07-17] MEDS: GLUCOPHAGE 1000 MG PO (07:52)
[2025-07-17] MEDS: LASIX 20 MG PO (07:52)
[2025-07-17] MEDS: INDERAL 10 MG PO (07:52)
[2025-07-17] MEDS: PEPCID 20 MG PO (07:52)
[2025-07-17] MEDS: ASPIR LOW (ENTERIC COATED) 81 MG PO (07:52)
[2025-07-17] MEDS: PROTONIX 40 MG PO (07:52)
[2025-07-17] MEDS: ZESTRIL 10 MG PO (07:52)
[2025-07-17] MEDS: DELTASONE 40 MG PO (07:52)
--- NOTE | 2025-07-17 09:23 | W.PN.PUL3 ---
Today's Communication / Plan
-
Feeling improved, baseline SOB
She is 100% on 2L, she can likely be weaned at rest, has baseline exertional hypoxemia
Prednisone taper back to home dose
She has tried and failed numerous treatment options, can consider Ohtuvayre as OP
Outpatient FU recommended
Discharge planning per team
Assessment
-
70-year-old woman with history of advanced COPD, chronic hypoxemic and hypercapnic respiratory failure-minimal effort dyspnea at baseline. Admitted with 5-day history of increased cough, phlegm production and shortness of breath. Chest x-ray clear
in the emergency room. We were consulted for evaluation of her advanced COPD with acute decompensation on 07/13/2025.
Acute exacerbation COPD/asthma overlap-likely tracheobronchitis.
Patient has advanced COPD with minimal effort dyspnea at baseline. Hospice has been contemplated.
Chest x-ray 07/12/2024 is clear.
Negative cardiac biomarkers
Negative influenza
Negative COVID
Negative D-dimer
Uncontrolled GERD-significant symptoms.
Chronic hypoxemic/hypercapnic respiratory failure-suspect compensated.
VBG 07/13/2025: 7.35/62/44
Condition present prior admission
History of frequent COPD exacerbations: 08/2018, 11/22/18, 12/08/18, 12/30/2018, April 2022, 06/2024
Known h/o stage IV COPD/emphysema on home O2 2LPM
Albuterol HFA, azithromycin 500 mg MWF, budesonide, DNs, prednisone 10 mg BID, roflumilast.
Previously on palliative care, which she discontinued herself.
Stanislaw 02/2025- FEV1 0.75L 20%, FVC 1.53L 29%0
AB.4/49/64-room air-08/2018
Former smoker: [id number]-layk smoker- quit 2018
Left lower lobe lung nodule: 4 mm lung nodule new compared to prior left lower lobe on CAT scan 02/19/2024. Enlarging. Patient declined any further evaluation.
Borderline low level of IgG 10/21/2017-subclasses were normal
Heart failure with with preserved ejection fraction
Hypertension
Hyperlipidemia
Type 2 diabetes
Cholecystectomy Aug 2018
Rheumatoid arthritis on chronic methotrexate
GERD-uncontrolled
Family history of hepatitis C (Brother), prostate cancer (Brother), COPD (mother), lung cancer (father)
Chronic back pain, on disability. S/P vertebroplasty. Recurrent Compression fractures-T4, 5-noted on low-dose CT chest 07/2018
Morbid Obesity BMI 41
Snoring: Most Recent sleep study without obstructive sleep apnea.
Deconditioning
Plan:
Advanced COPD/asthma overlap-significant emphysema on CAT scan. Progressive shortness of breath over the years.
Steroid-dependent.
Very limited due to progressive pulmonary disease.
Multiple exacerbations-despite maximal medical therapy.
Recently in the last 3 months prednisone has been adjusted despite that continues to have significant symptoms.
-
This time with an acute exacerbation likely due to acute tracheobronchitis. This is despite maximal medical therapy.
Expiratory wheezing with prolonged expiratory phase. Minimal effort dyspnea. Reports improvement over last 48 hrs
Her latest pulmonary function testing showed very severe airflow obstruction. Has declined over time.
-
Continue nebulizer therapy Pulmicort/DuoNebs [id number]
D/c doxycycline, in view of significant GI symptoms
Sputum culture, usual juanita. Procalcitonin negative. Imaging is not suggestive of infiltrate. Discontinue ceftriaxone, completed 3 days of antibiotic
Resume azithromycin, Thursday, will target reduced dose of to 50 mg daily considering her significant GI symptoms.
Switch to oral prednisone starting 1006
Continue Roflumilast
Noted the Dupixent has been discontinued due to pancytopenia in the past. May need to consider other biologic if clinically appropriate in the outpatient setting.
BMI 41
Other triggers in her case include obesity. Weight loss may be beneficial-unclear whether this patient will qualify for GLP-1 agonist.
-
She also describes persistent/significant acid reflux symptoms. On Pepcid and PPI
Ongoing GI symptoms with regurgitation this morning.
This may be part of the problem as well. Eventually needs Endoscopy/UGI series.
-
Currently 100% on 2L NC--could likely wean to off, home O2 eval, normally uses O2 with exertion
Continue oxygen supplementation to maintain pulse ox above 90%
Oxygenation at baseline 2 L.
Patient does have history of chronic hypercapnic respiratory failure-appears compensated based on VBG.
Dr. Funk discuss with her the possibility of nocturnal noninvasive mechanical ventilation-she categorically declined as she is claustrophobic. She has tried in the past.
Mucolytic's
Mucus clearing devices-Acapella device/incentive spirometry.
-
Patient remains on low-dose morphine for chronic pain.
This may need to be titrated in the future to help with her chronic dyspnea sensation.
Lung nodule:
CTA chest performed today (07/01/24) shows increasing size of LLL nodule, now 5.7mm from 4mm four months prior.
Patient declined further evaluation as she will not be able to tolerate therapy or diagnostic tools. She understands that this is enlarging and could be malignant.
High risk situation. High risk of hypercapnic respiratory failure-continue to monitor.
Goals of care discussed with the patient with Dr. Funk 07/13/2025-she would like to remain full code. Her son notes that if she ends up on a ventilator she would not want tracheotomy or feeding tubes.
She has remained on maximal medical therapy and hospice has been contemplated as per the last note in February [address] Caraballo.
Can consider addition of Ohtuvayre, she has tried dupixent but had adverse reaction (pancy
Dr. Funk discussed with her again possibility of palliative care or hospice and she is not ready for 07/13/2025.
Discharge planning w/ pulm OP FU
Diagnostic Data
Chest X-Ray: 07/12/25-No active pulmonary disease.
CXR 11-27-22, c/w April, no significant changes. No infiltrates of effusions
CT chest c/c 12-13-18 Impression:
1). There is mild linear interstitial airspace disease at the posterior basal portion of the right lower lobe stable dating back to 11/19/18 but new when compared with the 09/03/18 study. This may be scarring or mild pneumonia.
2). Mild centrilobular emphysema.
3). New 20% compression fracture of T8 and slight worsening of 80% compression fracture of T6 and 15% compression fracture of T5 near since the prior study.
Echo: 05/29/2023: Poor visualization. Normal LVEF. No significant valvular abnormalities.
PFT's:
Reports and relevant images were personally reviewed.
Total time spent on this consultation/encounter __51__ minutes which includes review of history, physical exam, medications, laboratory data, personal review of imaging, extensive review of outpatient records, discussion with care team and
respiratory therapy.
Subjective Data
-
Date of Service:
Date of Service: July 17, 2025
Chief Complaint: Pulmonary Follow Up (Acute exacerbation of COPD)
Subjective:
Currently on O2 but satting 100%
She notes exertional desaturation but this is baseline
Objective Data
Data Reviewed
Vital Signs / I&O / Oxygen:
Vital Signs
Temp Pulse Resp BP Pulse Ox
97.9 F 81 18 176/95 100
07/17/25 07:38 07/17/25 07:52 07/17/25 07:38 07/17/25 07:52 07/17/25 08:36
Intake and Output
07/16/25 07/17/25 07/18/25
06:59 06:59 06:59
Intake Total 480 / 480 1440 / 1440
Balance 480 / 480 1440 / 1440
SaO2 100
Nasal Cannula flow liters per 2
minute
Physical Exam
General: Comfortable (At rest)
HEENT: Normocephalic, Moist Mucous Membranes and Other (franklin face from chronic steroids)
Cardiovascular: S1-S2, Regular Rhythm and Peripheral Edema (bilateral, bluish feet)
Respiratory: Clear (overall diminished), Non-Labored Respirations and Other (Prolonged expiratory phase)
GI: Soft, Distended (Obese) and Non Tender
Neurology: Awake, Alert and Oriented
Skin: Warm and Dry
Labs/Micro/Reports
Lab Data
07/16/25 06:49
07/16/25 06:49
Microbiology
07/12/25 21:12 Sputum Respiratory Culture - Final
07/12/25 21:12 Sputum Gram Stain - Final
07/13/25 17:32 Urine Urine Culture - Final
Klebsiella oxytoca
[2025-07-17] MEDS: MS CONTIN (EXTENDED RELEASE) 15 MG PO (10:58)
[2025-07-17 12:14] LABS: Glucose - Point of Care 219 mg/dl (70-99)
--- NOTE | 2025-07-17 12:20 | CM ---
Patient seen at bedside
IMM Explained & signed. In chart
discharge today
discussed [facility]N - options reviewed - prefers [facility] - notified [facility] liaison referral to be entered
has home oxygen/[employer] portable, wheelchair, commode, specialized bed
patient inquired about palliative at home as well-referral entered
PLAN: Home with [facility], palliative care referral entered
son to transport
--- NOTE | 2025-07-17 12:27 | VNURNOTE ---
Home Health Liaison met with patient at bedside to discuss [facility] nurse/therapy, visits, schedule and homebound status. Patient is agreeable and understands that visits at home will be 2-3 x per week to assess and teach medical management. Patient
is aware that [facility] will contact them for start of care in 1-2 days after discharge from . Provided contact number for [facility].
[facility] referral completed in [facility].
--- NOTE | 2025-07-17 12:30 | W.PN.HOSP.TC ---
Today's Communication/Plan
-
steroid taper
ppi and h2 deven
azithro ppx
f/u pcp, pulm outpt
Assessment / Plan
Assessment / Plan
IMPRESSION:
70-year-old with history of advanced COPD on 2 L home O2, on chronic prednisone and azithromycin suppression, chronic pain, diabetes on sliding scale insulin, obesity recent admission for parotid infection who presents to the emergency department
with from upper respiratory symptoms increased cough, shortness of breath and dyspnea on exertion. X-ray shows no acute infiltrate. ECG is nonischemic and she has negative troponin. BNP is negative. Suspect acute viral upper respiratory
infection with slight worsening of COPD. She is satting 99% at rest on 2 L. However she feels with any exertion she has severe dyspnea and cannot catch her breath. No prior history of PE
PLAN:
Shortness of breath -secondary to acute COPD exacerbation
- Improved
-Appreciate pulmonary input-continue IV Solu-Medrol 40 mg every 12 - switched to prednisone 40mg daily;
-Will DC on slow taper; 40mg x 5 days then 30mg x 5 days then 10mg BID as home dose
-PPI and famotidine for steroid use
-Resume home azithro ppx
-Negative COVID and flu. Chest x-ray shows no evidence of obvious pneumonia
-Continue long-acting inhalers, budesonide Roflumilast
Urgency of urine with positive urinalysis-raises concern for UTI. Urine culture showing Klebsiella oxytoca. Continue ceftriaxone - treated for 3 days
Significant GERD symptoms-likely worsened with chronic steroids; Imaging unremarkable. PPI and H2 deven added.
Biliary ductal dilatation-CT shows both intra and extrahepatic dilatation which is also s/p cholecystectomy. Her liver function tests are normal. Consider MRI as an outpatient.
Back pain and lumbar area-lumbar spine xray this admission shows chronic compression fractures of lumbar vertebrae. Patient had no trauma. Patient with prior history of compression fracture. Patient advised to return to PCP and start on
osteoporosis treatments.
Diabetes
-Continue metformin 1 g twice daily
� Sliding scale insulin
Hypertension/CHF�no evidence of CHF exacerbation at this time
� Continue furosemide 20 mg daily
� Continue lisinopril and propranolol
Hyponatremia
-mild
-monitor
#Leuckocytosis
-likely 2/2 to steroid use
-afebrile
-monitor outpt
Chronic pain�
�Continue morphine 50 mg every 12 hours
Percocet every 6 hours as needed, patient is of fentanyl patch
DVT prophylaxis Lovenox subcu
CODE STATUS full code
More than 30 minutes spent in discharge including
Final examination of the patient
Summarizing hospital stay
Instructions for continuing care to all relevant caregivers
Preparation of discharge records, prescriptions, and referral forms
Total time spent (in minutes): 36
Anticipated Discharge: Today
Subjective/Interval History
-
Date of Service: July 17, 2025
Speaking freely,, no wheezing on auscultation
Objective Data
-
Labs:
Laboratory Results
07/17/25
12:27
WBC Pending
Hgb Pending
Hct Pending
Plt Count Pending
Sodium Pending
Potassium Pending
Chloride Pending
Carbon Dioxide Pending
BUN Pending
Creatinine Pending
Glucose Pending
Calcium Pending
Total Bilirubin Pending
AST Pending
ALT Pending
Alkaline Phosphatase Pending
Vital Signs:
Vital Signs
Temp Pulse Resp BP Pulse Ox
97.9 F 86 18 176/95 98
07/17/25 07:38 07/17/25 11:11 07/17/25 11:11 07/17/25 07:52 07/17/25 11:11
I&O
07/16/25 07/17/25 07/18/25
06:59 06:59 06:59
Intake Total 480 / 480 1440 / 1440
Balance 480 / 480 1440 / 1440
Review of Systems
-
History Source: Patient
All other systems: Not reviewed unless documented
Data Reviewed
-
Diagnostic Radiology: Report Reviewed by me
CT Scan: Report Reviewed by me
Labs: Labs Reviewed by me
--- NOTE | 2025-07-17 12:40 | W.DS.TRANS ---
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
-
Discharge Instructions:
Discharge Diagnosis/Procedures COPD exacerbation
Diet Low Fat,Low Cholesterol,Diabetic, Carb
Controlled
Activity As tolerated
Blood Work cbc and bmp in 3-5 days
Instructions:
Stand-Alone Forms:
Changes to Home Medications: Yes
Discharge Medications:
DC Medications w/original date entered in [employer]
propranolol 10 mg tablet 10 mg PO BID tremors 09/18/17
simvastatin 20 mg tablet 20 mg PO QPM High cholesterol 09/18/17
metformin 1,000 mg tablet 1,000 mg PO BID@0800,1700 ##120 09/10/18
insulin aspart U-100 100 unit/mL (3 mL) subcutaneous pen (Novolog FlexPen U-100 Insulin aspart) 2 - 11 sliding scale dose SC ACHS Diabetes 11/19/18
albuterol sulfate 90 mcg/actuation aerosol inhaler 2 puff inhalation R Q4HPRN PRN SOB 06/21/19
aspirin 81 mg tablet,delayed release 81 mg PO DAILY Blood pressure 06/21/19
budesonide 0.5 mg/2 mL suspension for nebulization 0.5 mg (2 mL) inhalation R BID #0 mL 04/27/22
roflumilast 500 mcg tablet (Daliresp) 500 mcg PO DAILY Anti-inflammatory #30 tabs 04/27/22
ipratropium 0.5 mg-albuterol 3 mg (2.5 mg base)/3 mL nebulization soln 3 ml inhalation R QID Lung/breathing issues 09/08/22
furosemide 20 mg tablet 20 mg PO DAILY Fluid retention/Swelling 09/13/22
oxycodone-acetaminophen 5 mg-325 mg tablet 1 tab PO QID Pain 09/13/22
lisinopril 10 mg tablet 10 mg PO DAILY Blood pressure 09/14/22
loperamide 2 mg tablet 2 mg PO BIDPRN PRN diarrhea 07/12/25
morphine 15 mg tablet,extended release 15 mg PO Q12H Pain 07/12/25
prednisone 10 mg tablet 10 mg PO BID Anti-Inflammatory 07/12/25
Held on 07/17/25. Instructions: Resume on 07/28/25. Can resume once tapering is back to 10mg BID
azithromycin 250 mg tablet 250 mg PO MoWeFr@0800 30 days #13 tabs 07/17/25
famotidine 20 mg tablet 20 mg PO DAILY 30 days #30 tabs 07/17/25
pantoprazole 40 mg tablet,delayed release 40 mg PO DAILY 30 days #30 tabs 07/17/25
prednisone 10 mg tablet See Rx Instructions .Route .COMPLEX #45 tabs 07/17/25
Home Medication Changes
azithromycin 250 mg tablet 250 mg PO MoWeFr@0800 30 days #13 tabs 07/17/25
famotidine 20 mg tablet 20 mg PO DAILY 30 days #30 tabs 07/17/25
pantoprazole 40 mg tablet,delayed release 40 mg PO DAILY 30 days #30 tabs 07/17/25
prednisone 10 mg tablet See Rx Instructions .Route .COMPLEX #45 tabs 07/17/25
Pending Results: No
[2025-07-17] MEDS: FLUZONE HIGH-DOSE 2025-26 0.5 ML IM (12:58)
[2025-07-17] MEDS: OMNICEF 300 MG PO (13:00)
[2025-07-17] MEDS: NOVOLOG FLEXPEN-LOW RESISTANCE 2 UNITS SC (13:00)
[2025-07-17 13:01] LABS: Hematocrit 41.3 % (37.0-47.0); Hemoglobin 13.6 g/dL (12.0-16.0); Mean Corp Hgb Conc. 32.9 g/dL (33.0-37.0); Mean Corpuscular Volume 90.0 fL (81.0-99.0); Platelet Count 222 10^3/uL (130-400); Red Cell Dist. Width 13.2 % (11.5-14.5)
[2025-07-17 13:16] LABS: ALT (SGPT) 30 U/L (0-35); AST (SGOT) 24 U/L (14-36); Albumin 4.4 g/dl (3.5-5.0); Alkaline Phosphatase 49 U/L (38-126); Blood Urea Nitrogen 20 mg/dl (7-17); Calcium 9.6 mg/dl (8.4-10.2); Carbon Dioxide 29 mmol/L (22-30); Chloride 92 mmol/L (98-107); Estimated Creatinine Clearance 71 ml/min; Glucose 221 mg/dl (70-99); Potassium 4.8 mmol/L (3.5-5.1); Sodium 130 mmol/L (135-145); Total Protein 6.4 g/dl (6.3-8.2); eGFR > 60.00
[2025-07-17 14:59] VITALS: BP 143/89
[2025-07-17 15:22] VITALS: BP 137/92
== END 2025-07-17 15:33 | disposition home health service (06) | DRG 191 ==
LOC: 3 WEST ACU 08:40
PROVIDERS: Internal Medicine; ADMITTING PHYSICIAN Internal Medicine; ATTENDING PHYSICIAN Internal Medicine; CONSULT PHYSICIAN Internal Medicine Critical Care Medicine; EMERGENCY PHYSICIAN Emergency Medicine; FAMILY PHYSICIAN Family Medicine
DX: J44.1 Chronic obstructive pulmonary disease with (acute) exacerbation (principal); E87.1 Hypo-osmolality and hyponatremia; Z68.41 Body mass index [BMI] 40.0-44.9, adult; J96.11 Chronic respiratory failure with hypoxia; J96.12 Chronic respiratory failure with hypercapnia; Z79.52 Long term (current) use of systemic steroids; K21.9 Gastro-esophageal reflux disease without esophagitis; I11.0 Hypertensive heart disease with heart failure; I50.9 Heart failure, unspecified; E11.9 Type 2 diabetes mellitus without complications; G89.29 Other chronic pain; Z90.49 Acquired absence of other specified parts of digestive tract; M81.0 Age-related osteoporosis without current pathological fracture; E66.01 Morbid (severe) obesity due to excess calories; Z79.891 Long term (current) use of opiate analgesic; Z88.0 Allergy status to penicillin; E78.00 Pure hypercholesterolemia, unspecified; Z79.82 Long term (current) use of aspirin; Z87.891 Personal history of nicotine dependence; I49.3 Ventricular premature depolarization; J20.9 Acute bronchitis, unspecified; J43.9 Emphysema, unspecified; M06.9 Rheumatoid arthritis, unspecified; Z79.4 Long term (current) use of insulin; Z79.51 Long term (current) use of inhaled steroids; Z79.631 Long term (current) use of antimetabolite agent; Z79.84 Long term (current) use of oral hypoglycemic drugs; Z80.1 Family history of malignant neoplasm of trachea, bronchus and lung; Z80.42 Family history of malignant neoplasm of prostate; Z82.5 Family history of asthma and other chronic lower respiratory diseases; Z90.711 Acquired absence of uterus with remaining cervical stump; Z99.81 Dependence on supplemental oxygen
CPT/HCPCS: 71046; 72100; 74177; 80048; 80053; 81003; 81015; 82805; 82962; 83036; 83880; 84484; 85025; 85027; 85379; 87070; 87077; 87086; 87186; 87205; 87502; 87811; 90662; 93005; 94640; 96374; 99285; G0008; Q9967